=== PATIENT | male | born 1990 | race African-American/Black ===

== ENCOUNTER 2016-07-29 00:33 | Inpatient (IN) | payer OTHER ==
--- NOTE | 2016-07-29 01:03 | HP ---
CIWA Score - CIWA Score Nausea/Vomitin-Mild Nausea/No Vomiting Muscle Tremors: 4-Moderate,w/Arms Extend Anxiety: 5 Agitation: 6 Paroxysmal Sweats: 3 Orientation: 1-Uncertain about Date Tacttile Disturbances: 0-None Auditory Disturbances: 0-None Visual Disturbances: 0-None Headache: 3-Moderate CIWA-Ar Total Score: 23 Admission ROS BHS - HPI Chief Complaint: WITHDRAWAL SX'S Allergies/Adverse Reactions: Allergies Allergy/AdvReac Type Severity Reaction Status Date / Time No Known Allergies Allergy Verified 07/29/16 00:50 History of Present Illness: 25 Y.O. MALE WITH OPIOID DEPENDENCE ADMITTED FOR DETOX TXMENT. CLIENT IS PRESENTLY INTOXICATED, WITH NATHAN .307. HE IS COHERENT AND ALERT DURING INTERVIEW. PERIOD OF AGITATION NOTED. CLIENT WAS SEEN AT [facility] ON 07/22/16 FOR SUICIDAL IDEATION AND ALCOHOL INTOXICATION. CLEARED AND D/C 07/23/2016 AND REFERRED HERE FOR DETOX. D/C PAPERS PROVIDED AND REVIEWED. PRESENTLY DENIES SI/ HI. HE HAS BEEN INFORMED THAT HIS EXPECTED LOSIS 5 DAYS. CLIENT VERBALIZED UNDERSTANDING AND AGREED. Exam Limitations: Intoxication - Ebola screening Have you traveled outside of the country in the last 21 days: No Have you had contact with anyone from an Ebola affected area: No Have you been sick,other than usual withdrawal symptoms: No Do you have a fever: No - Review of Systems Constitutional: Loss of Appetite, Night Sweats EENT: reports: No Symptoms Reported Respiratory: reports: No Symptoms reported Cardiac: reports: No Symptoms Reported GI: reports: Poor Appetite, Poor Fluid Intake : reports: No Symptoms Reported Musculoskeletal: reports: Back Pain Integumentary: reports: No Symptoms Reported Neuro: reports: No Symptoms reported Endocrine: reports: No Symptoms Reported Hematology: reports: No Symptoms Reported Psychiatric: reports: Agitated, Anxious, Depressed Other Systems: Reviewed and Negative Patient History - Patient Medical History Hx Anemia: No Hx Asthma: No Hx Chronic Obstructive Pulmonary Disease (COPD): No Hx Cancer: No Hx Cardiac Disorders: No Hx Congestive Heart Failure: No Hx Hypertension: No Hx Hypercholesterolemia: No Hx Pacemaker: No HX Cerebrovascular Accident: No Hx Seizures: No Hx Dementia: No Hx Diabetes: No Hx Gastrointestinal Disorders: No (GERD) Hx Liver Disease: No Hx Genitourinary Disorders: No Hx Sexually Transmitted Disorders: No Hx Renal Disease (ESRD): No Hx Thyroid Disease: No Hx Human Immunodeficiency Virus (HIV): No Hx Hepatitis C: No Hx Depression: Yes (FEELS) Hx Suicide Attempt: Yes (3 YEARS AGO OD ON PILLS. ) Hx Bipolar Disorder: No Hx Schizophrenia: No Other Medical History: PT REPORTS H/O PSYCH MEDS DOES NOT RECALL HE DOES NOT TAKE THEM - Patient Surgical History Past Surgical History: No - PPD History Previous Implant?: Yes Documented Results: Negative w/o proof Implanted On Prior [facility] Admission?: No PPD to be Administered?: Yes - Smoking Cessation Smoking history: Current every day smoker Have you smoked in the past 12 months: Yes Aproximately how many cigarettes per day: 10 Cigars Per Day: 1 Hx Chewing Tobacco Use: No Initiated information on smoking cessation: Yes 'Breaking Loose' booklet given: 07/29/16 - Substance & Tx. History Hx Alcohol Use: Yes Hx Substance Use: No Substance Use Type: Alcohol Hx Substance Use Treatment: Yes ([facility]) - Substances Abused LIQUOR Route: Oral Frequency: Daily Amount used: 6 BEERS OF 40 OZ/ 1 QUARTLIQUOR Age of first use: 19 Date of Last Use: 07/28/16 Family Disease History - Family Disease History Family History: Unable to Obtain Family Disease History: Other: Father (ESTRANGED), Mother Admission Physical Exam [facility] - Physical General Appearance: Yes: Moderate Distress, Alcohol on Breath, Intoxicated, Thin , Irritable HEENTM: Yes: Within Normal Limits, Other (BULGING EYE BALLS) Respiratory: Yes: Chest Non-Tender, Lungs Clear, Normal Breath Sounds, No Respiratory Distress, No Accessory Muscle Use Neck: Yes: No masses,lesions,Nodules, Trachea in good position Breast: Yes: Breast Exam Deferred Cardiology: Yes: Regular Rhythm, S1, S2, Tachycardia Abdominal: Yes: Normal Bowel Sounds, Non Tender, Flat, Soft Genitourinary: Yes: Within Normal Limits Back: Yes: Normal Inspection Musculoskeletal: Yes: full range of Motion, Gait Steady 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: Alert, Motor Strength 5/5 Integumentary: Yes: Normal Color, Warm Lymphatic: Yes: Within Normal Limits - Diagnostic (1) Alcohol dependence with uncomplicated withdrawal Current Visit: Yes Status: Acute (2) GERD (gastroesophageal reflux disease) Current Visit: Yes Status: Acute (3) Nicotine dependence Current Visit: Yes Status: Acute (4) Asthma Current Visit: Yes Status: Acute Cleared for Admission [facility] - Detox or Rehab [facility] Level of Care: Medically Managed Detox Regimen/Protocol: Librium [facility] Breath Alcohol Content Breath Alcohol Content: 0.307 Vital Signs - Vital Signs Vital Signs Refused: No Temperature: 97 F Temperature Source: Oral Pulse Rate: 101 Respiratory Rate: 20 Blood Pressure: 105/73 BP Location: Left Arm Blood Pressure Position: Sitting - Height Height: 5 ft 6 in - Weight Weight: 53.524 kg Weight Measurement Method: Standing Scale Body Mass Index (BMI): 19.0 - Bowel Function Bowel Movement: No Urine Drug Screen - Test Device Lot Number: [id number] Expiration Date: 03/01/18 - Control Is Test Valid: Yes - Results Drug Screen Negative: No Urine Drug Screen Results: BZO-Benzodiazepines
[2016-07-29 01:20] VITALS: BMI 19.0
[2016-07-29] MEDS ORDERED: IBUPROFEN 400 MG TABLET (FP) PO PRN (01:24)
[2016-07-29] MEDS ORDERED: MENTHOL/PHENOL 1 EACH UD MM PRN (01:24)
[2016-07-29] MEDS ORDERED: guaiFENesin/D-METHORPHAN HB 10 ML UNIT-DOSE CUPS PO PRN (01:24)
[2016-07-29] MEDS ORDERED: MAGNESIUM CITRATE 300 ML BOTTLE PO PRN (01:24)
[2016-07-29] MEDS ORDERED: diphenhydrAMINE HCL 50 MG CAPSULE PO PRN (01:24)
[2016-07-29] MEDS ORDERED: P-EPHED 60MG/TRIPROLIDI 2.5MG TABLET PO PRN (01:24)
[2016-07-29] MEDS ORDERED: MAGNESIUM HYDROX 2400MG/30ML ORAL SUSPENSION 30 ML CUP PO PRN (01:24)
[2016-07-29] MEDS ORDERED: chlordiazePOXIDE HCL 25 MG CAPSULE PO ONE (01:24)
[2016-07-29] MEDS ORDERED: hydrOXYzine PAMOATE 50 MG CAPSULE (FP) PO PRN (01:24)
[2016-07-29] MEDS ORDERED: LOPERAMIDE HCL 2 MG CAPSULE PO PRN (01:24)
[2016-07-29] MEDS ORDERED: chlordiazePOXIDE HCL 25 MG CAPSULE PO PRN (01:24)
[2016-07-29] MEDS: NICOTINE 14 MG/24 HOURS TOPICAL PATCH TD SCH ×2 (02:25→10:11)
[2016-07-29] MEDS: chlordiazePOXIDE HCL 25 MG CAPSULE PO SCH ×4 (06:21→22:17)
--- NOTE | 2016-07-29 09:29 | EKG ---
Test Reason : Blood Pressure : / mmHG Vent. Rate : 089 BPM Atrial Rate : 089 BPM P-R Int : 128 ms QRS Dur : 080 ms QT Int : 332 ms P-R-T Axes : 079 -40 047 degrees QTc Int : 403 ms NORMAL SINUS RHYTHM RSR' OR QR PATTERN IN V1 SUGGESTS RIGHT VENTRICULAR CONDUCTION DELAY ABNORMAL ECG NO PREVIOUS ECGS AVAILABLE Confirmed by SUNG ALFREDO MD ([id number]) on 07/29/2016 9:28:58 AM Referred By: Confirmed By:SUNG ALFREDO MD
[2016-07-29] MEDS ORDERED: NICOTINE 14 MG/24 HOURS TOPICAL PATCH TD SCH (10:00)
[2016-07-29] MEDS: PRENATAL VITAMINS W/ FOLIC ACID TABLET (FP) PO SCH (10:10)
[2016-07-29] MEDS: PANTOPRAZOLE 20 MG TABLET (FP) PO SCH (10:10)
[2016-07-29 10:27] LABS: MCH 32.1 pg (25.7-33.7); MEAN CELL VOLUME 94.3 fl (80-96); MEAN PLT VOLUME 8.4 fl (7.5-11.1); PLATELET COUNT 179 K/MM3 (134-434); RDW 13.7 % (11.9-15.9); WHITE BLOOD COUNT 7.6 K/mm3 (4.0-10.0)
[2016-07-29 11:56] LABS: ALBUMIN 3.9 g/dl (3.4-5.0); ALK PHOS 82 U/L (45-117); ANION GAP 14 (8-16); BILIRUBIN,TOTAL 0.2 mg/dL (0.2-1.0); CALCIUM 8.7 mg/dL (8.5-10.1); CO2 25 mmol/L (21-32); CREATININE 1.2 mg/dL (0.7-1.3); GLUCOSE,RANDOM 102 mg/dL (74-106); SGOT/AST 13 U/L (15-37); SGPT/ALT 26 U/L (12-78); TOT PROT 7.1 g/dl (6.4-8.2)
[2016-07-29] MEDS ORDERED: INFLUENZA VACCINE 45 MCG/0.5 ML (MDV 16-17) IM ONE (12:00)
[2016-07-29 12:14] LABS: HIV 1 & 2 AB NEGATIVE; HIV 1 AGp24 NEGATIVE
--- NOTE | 2016-07-29 12:29 | PN ---
BHS Progress Note (SOAP) Subjective: Patient was admitted early this morning for ETOH Detox. Complained of tremors, anxiety, sweating, and restlessness. Objective: 07/29/16 12:28 Vital Signs Temperature 96.9 F L 07/29/16 10:51 Pulse Rate 99 H 07/29/16 10:51 Respiratory Rate 20 07/29/16 10:51 Blood Pressure 115/79 07/29/16 10:51 O2 Sat by Pulse Oximetry (%) Laboratory Results - last 24 hr 07/29/16 07/29/16 07/29/16 07:40 07:40 07:40 WBC 7.6 RBC 4.60 Hgb 14.8 Hct 43.4 MCV 94.3 MCHC 34.0 RDW 13.7 Plt Count 179 MPV 8.4 Sodium 146 H Potassium 3.9 Chloride 107 Carbon Dioxide 25 Anion Gap 14 BUN 15 Creatinine 1.2 Creat Clearance w eGFR > 60 Random Glucose 102 Calcium 8.7 Total Bilirubin 0.2 AST 13 L ALT 26 Alkaline Phosphatase 82 Total Protein 7.1 Albumin 3.9 HIV 1&2 Antibody Screen Negative HIV P24 Antigen Negative labs noted Assessment: 07/29/16 12:28 Withdrawal symptoms Plan: Continue Detox
[2016-07-29] MEDS: THIAMINE HCL 100 MG TABLET (FP) PO SCH (22:16)
[2016-07-30] MEDS: chlordiazePOXIDE HCL 25 MG CAPSULE PO SCH ×4 (05:38→22:04)
[2016-07-30] MEDS: PRENATAL VITAMINS W/ FOLIC ACID TABLET (FP) PO SCH (10:05)
[2016-07-30] MEDS: PANTOPRAZOLE 20 MG TABLET (FP) PO SCH (10:05)
[2016-07-30] MEDS: NICOTINE 14 MG/24 HOURS TOPICAL PATCH TD SCH (10:06)
[2016-07-30] MEDS: ACETAMINOPHEN 325 MG TABLET (FP) PO PRN (10:08)
--- NOTE | 2016-07-30 14:45 | PN ---
S CIWA - CIWA Score Nausea/Vomitin Muscle Tremors: 4-Moderate,w/Arms Extend Anxiety: 4-Mod. Anxious/Guarded Agitation: 3 Paroxysmal Sweats: No Perspiration Orientation: 0-Oriented Tacttile Disturbances: 1-Very Mild Itch/Numbness Auditory Disturbances: 0-None Visual Disturbances: 0-None Headache: 3-Moderate CIWA-Ar Total Score: 18 BHS Progress Note (SOAP) Subjective: Nausea, tremor, sweating, interrupted sleep, restless Objective: 07/30/16 14:41 Last Vital Signs Temp Pulse Resp BP Pulse Ox 97.0 F L 71 18 105/78 07/30/16 12:51 07/30/16 12:51 07/30/16 12:51 07/30/16 12:51 Laboratory Tests 07/29/16 07/29/16 07/29/16 07:40 07:40 07:40 WBC 7.6 RBC 4.60 Hgb 14.8 Hct 43.4 MCV 94.3 MCHC 34.0 RDW 13.7 Plt Count 179 MPV 8.4 Sodium 146 H Potassium 3.9 Chloride 107 Carbon Dioxide 25 Anion Gap 14 BUN 15 Creatinine 1.2 Creat Clearance w eGFR > 60 Random Glucose 102 Calcium 8.7 Total Bilirubin 0.2 AST 13 L ALT 26 Alkaline Phosphatase 82 Total Protein 7.1 Albumin 3.9 RPR Titer Nonreactive HIV 1&2 Antibody Screen HIV P24 Antigen 07/29/16 07:40 WBC RBC Hgb Hct MCV MCHC RDW Plt Count MPV Sodium Potassium Chloride Carbon Dioxide Anion Gap BUN Creatinine Creat Clearance w eGFR Random Glucose Calcium Total Bilirubin AST ALT Alkaline Phosphatase Total Protein Albumin RPR Titer HIV 1&2 Antibody Screen Negative HIV P24 Antigen Negative Labs noted Assessment: 07/30/16 14:44 Withdrawal symptoms Plan: Continue detox
[2016-07-30] MEDS: THIAMINE HCL 100 MG TABLET (FP) PO SCH (22:04)
[2016-07-31] MEDS: chlordiazePOXIDE 5 MG CAPSULE PO SCH ×4 (05:30→22:15)
[2016-07-31] MEDS: PANTOPRAZOLE 20 MG TABLET (FP) PO SCH (10:39)
[2016-07-31] MEDS: PRENATAL VITAMINS W/ FOLIC ACID TABLET (FP) PO SCH (10:39)
[2016-07-31] MEDS: NICOTINE 14 MG/24 HOURS TOPICAL PATCH TD SCH (10:39)
[2016-07-31] MEDS: ACETAMINOPHEN 325 MG TABLET (FP) PO PRN (10:40)
--- NOTE | 2016-07-31 11:35 | PN ---
S CIWA - CIWA Score Nausea/Vomitin-No Nausea/No Vomiting Muscle Tremors: 3 Anxiety: 4-Mod. Anxious/Guarded Agitation: 4-Moderately Restless Paroxysmal Sweats: 3 Orientation: 0-Oriented Tacttile Disturbances: 0-None Auditory Disturbances: 0-None Visual Disturbances: 0-None Headache: 0-None Present CIWA-Ar Total Score: 14 BHS Progress Note (SOAP) Subjective: SWEATING,ANXIETY,TREMORS,INTERRUPTED SLEEP,RESTLESS Objective: 07/31/16 11:33 Vital Signs - 8 hr 07/31/16 07/31/16 06:12 09:40 Temperature 97.8 F 96.2 F L Pulse Rate 71 65 Respiratory 16 16 Rate Blood Pressure 104/74 94/64 Laboratory Tests 07/29/16 07/29/16 07/29/16 07:40 07:40 07:40 WBC 7.6 RBC 4.60 Hgb 14.8 Hct 43.4 MCV 94.3 MCHC 34.0 RDW 13.7 Plt Count 179 MPV 8.4 Sodium 146 H Potassium 3.9 Chloride 107 Carbon Dioxide 25 Anion Gap 14 BUN 15 Creatinine 1.2 Creat Clearance w eGFR > 60 Random Glucose 102 Calcium 8.7 Total Bilirubin 0.2 AST 13 L ALT 26 Alkaline Phosphatase 82 Total Protein 7.1 Albumin 3.9 RPR Titer Nonreactive HIV 1&2 Antibody Screen HIV P24 Antigen 07/29/16 07:40 WBC RBC Hgb Hct MCV MCHC RDW Plt Count MPV Sodium Potassium Chloride Carbon Dioxide Anion Gap BUN Creatinine Creat Clearance w eGFR Random Glucose Calcium Total Bilirubin AST ALT Alkaline Phosphatase Total Protein Albumin RPR Titer HIV 1&2 Antibody Screen Negative HIV P24 Antigen Negative LABS NOTED Assessment: 07/31/16 11:33 WITHDRAWAL SX. Plan: CONTINUE DETOX
--- NOTE | 2016-07-31 16:08 | CONSULT ---
[facility] Psychiatric Consult - Data Date of interview: 07/31/16 Admission source: [facility] Identifying data: First admission to [facility] for this 25 y/o AA male seeking detox treatment on for alcohol dependence.Patient is single without children,homeless,unemployed and supported on Public Assistance. Substance Abuse History: - Smoking Cessation. Smoking history: Current every day smoker. Have you smoked in the past 12 months: Yes. Aproximately how many cigarettes per day: 10. Cigars Per Day: 1. Hx Chewing Tobacco Use: No. Initiated information on smoking cessation: Yes. 'Breaking Loose' booklet given : 07/29/16. - Substance & Tx. History. Hx Alcohol Use: Yes. Hx Substance Use : No. Substance Use Type: Alcohol. Hx Substance Use Treatment: Yes ([facility]). - Substances Abused. LIQUOR. Route: Oral. Frequency: Daily. Amount used: 6 BEERS OF 40 OZ/ 1 QUARTLIQUOR. Age of first use: 19. Date of Last Use: . Discussed with the patient in this interview.He confirmed this pattern of substance use. Medical History: GERD and bronchial asthma. Psychiatric History: No reported history of psychiatric hospitalizations.Patient reports OPD care at the [facility] ([facility]).Diagnosed with Bipolar Disorder.Mr Judd indicates that he is not adherent to OPD care (does not take prescribed medications and does not keep appointments).Review of pharmacy claims shows last filled scripts for depakote (250 mg/hs),trazodone (50 mg/hs) and seroquel (100 mg/hs) posted @ [facility] # [id number].Patient explains that " those medications were too strong for me." Noted history of suicide attempts via overdoses with medications.Insomnia is endorsed by the patient.He declares no interest for renewal of psychotropic medications at the exception of detox drugs/zolpidem at bedtime. Physical/Sexual Abuse/Trauma History: Patient denies. Additional Comment: Urine Drug Screen Results: BZO-Benzodiazepines.Noted. Mental Status Exam - Mental Status Exam Alert and Oriented to: Time, Place, Person Cognitive Function: Good Patient Appearance: Well Groomed Mood: Hopeful, Euthymic Affect: Appropriate, Normal Range Patient Behavior: Fatigued, Appropriate, Cooperative Speech Pattern: Clear, Appropriate Voice Loudness: Normal Thought Process: Goal Oriented Thought Disorder: Not Present Hallucinations: Denies Suicidal Ideation: Denies Homicidal Ideation: Denies Insight/Judgement: Poor Sleep: Poorly, Difficulty falling asleep Appetite: Good Muscle strength/Tone: Normal Gait/Station: Normal Psychiatric Findings - Problem List ([place] 1, 2,3) (1) Alcohol dependence with uncomplicated withdrawal Current Visit: Yes Status: Acute (2) Asthma Current Visit: Yes Status: Acute (3) Nicotine dependence Current Visit: Yes Status: Acute (4) Bipolar disorder Current Visit: No Status: Acute Comment: No symptom elicited.Historical diagnosis. (5) Substance induced mood disorder Current Visit: Yes Status: Acute (6) GERD (gastroesophageal reflux disease) Current Visit: Yes Status: Acute (7) Insomnia Current Visit: Yes Status: Acute - Initial Treatment Plan Initial Treatment Plan: Psychoeducation.Detoxification.Zolpidem 10 mg po hs prn.Patient is made aware of the risk of parasomnias.He agrees with this plan.Not receptive to encouragement for mood stabilizers.Patient is reminded of the dangers of refusal of treatment and the benefits of psychopharmacotherapy as a tool for stabilization.He declines to follow my recommendations.Observation.
[2016-07-31] MEDS: MAG HYDROX/AL HYDROX/SIMETH 30 ML UNIT-DOSE CUP PO PRN (17:30)
[2016-07-31] MEDS: NICOTINE POLACRILEX 2 MG GUM BC PRN ×2 (17:33→22:15)
[2016-07-31] MEDS ORDERED: ZOLPIDEM TARTRATE 5 MG TABLET PO PRN (22:00)
[2016-07-31] MEDS: THIAMINE HCL 100 MG TABLET (FP) PO SCH (22:15)
[2016-08-01] MEDS: chlordiazePOXIDE HCL 10 MG CAPSULE PO SCH ×2 (05:50→10:17)
[2016-08-01 06:23] VITALS: BP 112/72; PULSE 66; TEMP 96.7
[2016-08-01] MEDS: NICOTINE 14 MG/24 HOURS TOPICAL PATCH TD SCH (10:17)
[2016-08-01] MEDS: PRENATAL VITAMINS W/ FOLIC ACID TABLET (FP) PO SCH (10:17)
[2016-08-01] MEDS: MAG HYDROX/AL HYDROX/SIMETH 30 ML UNIT-DOSE CUP PO PRN (10:18)
--- NOTE | 2016-08-01 10:45 | DS ---
[facility] Detox Discharge Summary Admission Date: 07/29/16 Discharge Date: 08/01/16 - History Present History: Alcohol Dependence Additional Comments: DETOX COMPLETED. Pertinent Past History: GERD ASTHMA INSOMNIA BIPOLAR DISORDER - Physical Exam Results Vital Signs: Vital Signs Temperature 96.7 F L 08/01/16 06:22 Pulse Rate 66 08/01/16 06:22 Respiratory Rate 16 08/01/16 06:22 Blood Pressure 112/72 08/01/16 06:22 O2 Sat by Pulse Oximetry (%) Pertinent Admission Physical Exam Findings: WITHDRAWAL SX Laboratory Last Values WBC 7.6 K/mm3 (4.0-10.0) 07/29/16 07:40 RBC 4.60 M/mm3 (4.00-5.60) 07/29/16 07:40 Hgb 14.8 GM/dL (11.7-16.9) 07/29/16 07:40 Hct 43.4 % (35.4-49) 07/29/16 07:40 MCV 94.3 fl (80-96) 07/29/16 07:40 MCHC 34.0 g/dl (32.0-35.9) 07/29/16 07:40 RDW 13.7 % (11.9-15.9) 07/29/16 07:40 Plt Count 179 K/MM3 (134-434) 07/29/16 07:40 MPV 8.4 fl (7.5-11.1) 07/29/16 07:40 Sodium 146 mmol/L (136-145) H 07/29/16 07:40 Potassium 3.9 mmol/L (3.5-5.1) 07/29/16 07:40 Chloride 107 mmol/L (98-107) 07/29/16 07:40 Carbon Dioxide 25 mmol/L (21-32) 07/29/16 07:40 Anion Gap 14 (8-16) 07/29/16 07:40 BUN 15 mg/dL (7-18) 07/29/16 07:40 Creatinine 1.2 mg/dL (0.7-1.3) 07/29/16 07:40 Creat Clearance w eGFR > 60 (>60) 07/29/16 07:40 Random Glucose 102 mg/dL (74-106) 07/29/16 07:40 Calcium 8.7 mg/dL (8.5-10.1) 07/29/16 07:40 Total Bilirubin 0.2 mg/dL (0.2-1.0) 07/29/16 07:40 AST 13 U/L (15-37) L 07/29/16 07:40 ALT 26 U/L (12-78) 07/29/16 07:40 Alkaline Phosphatase 82 U/L (45-117) 07/29/16 07:40 Total Protein 7.1 g/dl (6.4-8.2) 07/29/16 07:40 Albumin 3.9 g/dl (3.4-5.0) 07/29/16 07:40 RPR Titer Nonreactive (NONREACTIVE) 07/29/16 07:40 HIV 1&2 Antibody Screen Negative 07/29/16 07:40 HIV P24 Antigen Negative 07/29/16 07:40 - Treatment Hospital Course: Detox Protocol Followed, Detoxed Safely, Responded well, Discharged Condition Good - Diagnosis (1) Alcohol dependence with uncomplicated withdrawal Current Visit: Yes Status: Acute (2) Asthma Current Visit: Yes Status: Chronic Qualifiers: Asthma severity: mild intermittent Asthma complication type: uncomplicated Qualified Code(s): J45.20 - Mild intermittent asthma, uncomplicated (3) GERD (gastroesophageal reflux disease) Current Visit: Yes Status: Chronic Qualifiers: Esophagitis presence: without esophagitis Qualified Code(s): K21.9 - Gastro-esophageal reflux disease without esophagitis (4) Nicotine dependence Current Visit: Yes Status: Chronic Qualifiers: Nicotine product type: cigarettes Substance use status: uncomplicated Qualified Code(s): F17.210 - Nicotine dependence, cigarettes, uncomplicated (5) Insomnia Current Visit: Yes Status: Chronic (6) Substance induced mood disorder Current Visit: Yes Status: Acute (7) Bipolar disorder Current Visit: Yes Status: Acute - AMA Did Patient Leave Against Medical Advice: No
== END 2016-08-01 10:45 | disposition home or self-care (01) | DRG 775 ==
LOC: YASAS 00:33 → Y3N 01:19
PROVIDERS: ADMIT Internal Medicine; ATTEND Internal Medicine
PROC: HZ2ZZZZ Detoxification Services for Substance Abuse Treatment (ICD-10-PCS; principal; 2016-08-01)
DX: F10.230 Alcohol dependence with withdrawal, uncomplicated (principal); F17.210 Nicotine dependence, cigarettes, uncomplicated; F19.24 Other psychoactive substance dependence with psychoactive substance-induced mood disorder; F31.9 Bipolar disorder, unspecified; G47.00 Insomnia, unspecified; J45.20 Mild intermittent asthma, uncomplicated; K21.9 Gastro-esophageal reflux disease without esophagitis
CPT/HCPCS: 36415; 80053; 85027; 86593; 87389; 93005; 93010

== ENCOUNTER 2016-08-05 08:06 | Emergency (ER) | payer OTHER ==
[2016-08-05 08:12] VITALS: TEMP 98.1; BMI 17.7
--- NOTE | 2016-08-05 08:31 | PDOC ---
History of Present Illness - General History Source: Patient Exam Limitations: No Limitations - History of Present Illness Initial Comments: 08/05/16 09:00 The patient is a 25 year old male, with a significant past medical history of ETOH abuse and suicidal ideations, who presents to the emergency department with alcohol intoxication. He states that he was recently at [address] [place] [address], where he was detoxing from alcohol. He was discharged and began to drink again. He went to [facility] last night for alcohol intoxication and was discharge early this morning. He then drank 2 beers before stopping an ambulance and coming to this ED for evaluation. He states that he wants to go to detox. The patient was informed that [address] [place] [address] will be unable to accept him back due to the quick turnaround. On presentation the patient does smell of alcohol but is able to ambulate, converse and hold a conversation without any complications. The patient denies chest pain, shortness of breath, headache and dizziness. Denies fever, chills, nausea, vomit, diarrhea and constipation. Allergies: Lactose Intolerant Past surgical history: None reported Social history: ETOH abuse. Cigarette use (20 daily). Percocet use <Yves Valenzuela - Last Filed: 08/05/16 09:24> <Andres Russell - Last Filed: 08/05/16 11:59> - General Chief Complaint: Alcohol intoxication Stated Complaint: INTOX Time Seen by Provider: 08/05/16 08:30 Past History <Yves Valenzuela - Last Filed: 08/05/16 09:24> - Past Medical History Anemia: No Asthma: No Cancer: No Cardiac Disorders: No CVA: No COPD: No CHF: No Dementia: No Diabetes: No GI Disorders: No (GERD) Disorders: No HTN: No Hypercholesterolemia: No Liver Disease: No Suicide Attempt (Hx): Yes (3 YEARS AGO OD ON PILLS. ) Seizures: Yes (???) Thyroid Disease: No - Psycho/Social/Smoking Cessation Hx Suicidal Ideation: No Smoking History: Current every day smoker Have you smoked in the past 12 months: Yes Number of Cigarettes Smoked Daily: 20 Cigars Per Day: 1 Information on smoking cessation initiated: Yes 'Breaking Loose' booklet given: 08/05/16 Hx Alcohol Use: Yes (daily) Drug/Substance Use Hx: Yes (percocets) Substance Use Type: Alcohol Hx Substance Use Treatment: Yes ([facility]) <Andres Russell - Last Filed: 08/05/16 11:59> - Past Medical History Allergies/Adverse Reactions: Allergies Allergy/AdvReac Type Severity Reaction Status Date / Time lactose Allergy Verified 08/05/16 08:12 LACTOSE INTOLERANCE Allergy Uncoded 08/05/16 08:12 Home Medications: Ambulatory Orders NK [No Known Home Medication] 08/01/16 Review of Systems - Review of Systems Able to Perform ROS?: Yes Comments:: 08/05/16 09:00 CONSTITUTIONAL: No fever, no chills, no fatigue EYES: No visual changes ENT: No ear pain, no sore throat CARDIOVASCULAR: No chest pain, no palpitations RESPIRATORY: No cough, no SOB GI: No abdominal pain, no nausea, no vomiting, no constipation, no diarrhea GENITOURINARY: No dysuria, no frequency, no hematuria MUSKULOSKELETAL: No backpain, no joint pain, no myalgias SKIN: No rash NEURO: No headache <Yves Valenzuela - Last Filed: 08/05/16 09:24> *Physical Exam - Vital Signs Last Vital Signs Temp Pulse Resp BP Pulse Ox 98.1 F 83 18 111/72 100 08/05/16 08:09 08/05/16 08:09 08/05/16 08:09 08/05/16 08:09 08/05/16 08:09 - Physical Exam Comments: 08/05/16 09:00 CONSTITUTIONAL: Well-appearing; well-nourished; in no apparent distress. Alert, awake and fully oriented. Alcohol on breath. HEAD: Normocephalic; atraumatic EYES: PERRL; EOM intact. Bilateral proptosis. ENMT: External appears normal; normal oropharynx NECK: Supple; non-tender; no cervical lymphadenopathy CARD: Normal S1, S2; no murmurs, rubs, or gallops RESP: Normal chest excursion with respiration; breath sounds clear and equal bilaterally; no wheezes, rhonchi, or rales ABD: Soft, non-distended; non-tender; no palpable organomegaly, no palpable hernias EXT: Normal ROM in all four extremities; non-tender to palpation; distal pulses intact SKIN: Warm, dry, no rash NEURO: No focal neurological deficiencies. <Yves Valenzuela - Last Filed: 08/05/16 09:24> - Vital Signs Last Vital Signs Temp Pulse Resp BP Pulse Ox 98.1 F 83 18 111/72 100 08/05/16 08:09 08/05/16 08:09 08/05/16 08:09 08/05/16 08:09 08/05/16 08:09 <Andres Russell - Last Filed: 08/05/16 11:59> Medical Decision Making - Medical Decision Making 08/05/16 11:58 Patient is a 25-year-old male with history of alcohol abuse and depression who presents with signs and symptoms of acute alcohol intoxication. Patient reports drinking several beers shortly prior to arrival in the ER and shortly after discharge from [facility] where he was treated for acute alcohol intoxication as well. In the ER, patient is awake and alert, Ox3, ambulates without difficulty, gait is stable. Patient was able tolerate a meal and was discharged when his grandfather arrived in the ER. <Andres Russell - Last Filed: 08/05/16 11:59> *DC/Admit/Observation/Transfer - Attestations Scribe Attestion: 08/05/16 09:01 Documentation prepared by Yves Valenzuela, acting as medical affairs director for Andres Russell MD <Yves Valenzuela - Last Filed: 08/05/16 09:24> <Andres Russell - Last Filed: 08/05/16 11:59> Diagnosis at time of Disposition: Alcohol intoxication Qualifiers: Complication of substance-induced condition: uncomplicated Qualified Code(s): F10.120 - Alcohol abuse with intoxication, uncomplicated - Discharge Dispostion Disposition: HOME - Referrals Referrals: Kasi Carreon MD [Primary Care Provider] - - Patient Instructions Printed Discharge Instructions: DI for Alcohol Abuse
[2016-08-05] MEDS ORDERED: chlordiazePOXIDE HCL 25 MG CAPSULE PO ONE (09:12)
[2016-08-05] MEDS ORDERED: chlordiazePOXIDE HCL 25 MG CAPSULE ONE (09:13)
[2016-08-05 11:06] VITALS: BP 112/63; PULSE 105
== END 2016-08-05 11:03 | disposition home or self-care (01) ==
LOC: JER 08:06
DX: F10.120 Alcohol abuse with intoxication, uncomplicated (principal); F17.210 Nicotine dependence, cigarettes, uncomplicated
CPT/HCPCS: 99283-25

== ENCOUNTER 2016-09-23 20:50 | Inpatient (IN) | payer OTHER ==
--- NOTE | 2016-09-23 21:03 | HP ---
CIWA Score - CIWA Score Nausea/Vomitin Muscle Tremors: 6 Anxiety: 5 Agitation: 6 Paroxysmal Sweats: 1-Minimal Palms Moist Orientation: 0-Oriented Tacttile Disturbances: 0-None Auditory Disturbances: 0-None Visual Disturbances: 0-None Headache: 3-Moderate CIWA-Ar Total Score: 24 Admission ROS BHS - HPI Chief Complaint: C/O WITHDRAWAL SX'S. SEEKING DETOX TXMENT Allergies/Adverse Reactions: Allergies Allergy/AdvReac Type Severity Reaction Status Date / Time lactose Allergy Verified 09/23/16 20:57 LACTOSE INTOLERANCE Allergy Uncoded 09/23/16 20:57 History of Present Illness: 25 Y.O. MALE WITH ALCOHOLISM KNOWN TO [facility] ADMITTED FOR DETOX TXMENT. Exam Limitations: No Limitations - Ebola screening Have you traveled outside of the country in the last 21 days: No Have you had contact with anyone from an Ebola affected area: No Have you been sick,other than usual withdrawal symptoms: No Do you have a fever: No - Review of Systems Constitutional: Loss of Appetite, Malaise, Night Sweats, Changes in sleep, Unintentional Wgt. Loss EENT: reports: No Symptoms Reported Respiratory: reports: No Symptoms reported Cardiac: reports: No Symptoms Reported GI: reports: Nausea, Poor Appetite, Abdominal cramping : reports: No Symptoms Reported Musculoskeletal: reports: Joint Pain Neuro: reports: No Symptoms reported Endocrine: reports: No Symptoms Reported Hematology: reports: No Symptoms Reported Psychiatric: reports: Agitated, Depressed Other Systems: Reviewed and Negative Patient History - Patient Medical History Hx Anemia: No Hx Asthma: No Hx Chronic Obstructive Pulmonary Disease (COPD): No Hx Cancer: No Hx Cardiac Disorders: No Hx Congestive Heart Failure: No Hx Hypertension: No Hx Hypercholesterolemia: No Hx Pacemaker: No HX Cerebrovascular Accident: No Hx Seizures: No Hx Dementia: No Hx Diabetes: No Hx Gastrointestinal Disorders: No (GERD) Hx Liver Disease: No Hx Genitourinary Disorders: No Hx Sexually Transmitted Disorders: No Hx Renal Disease (ESRD): No Hx Thyroid Disease: No Hx Human Immunodeficiency Virus (HIV): No Hx Hepatitis C: No Hx Depression: Yes Hx Suicide Attempt: Yes (3 YEARS AGO OD ON PILLS. PRESENTYL DENIES) Hx Bipolar Disorder: No Hx Schizophrenia: No - Patient Surgical History Past Surgical History: No - PPD History Previous Implant?: Yes Documented Results: Negative w/proof Implanted On Prior [facility] Admission?: Yes Date: 07/31/16 Results: 0MM PPD to be Administered?: No - Smoking Cessation Smoking history: Current every day smoker Have you smoked in the past 12 months: Yes Aproximately how many cigarettes per day: 20 Cigars Per Day: 1 Hx Chewing Tobacco Use: No Initiated information on smoking cessation: Yes 'Breaking Loose' booklet given: 09/23/16 - Substance & Tx. History Hx Alcohol Use: Yes Hx Substance Use: Yes Substance Use Type: Alcohol Hx Substance Use Treatment: Yes ([facility]) - Substances Abused BEER/LIQUOR Route: Oral Frequency: Daily Amount used: 8-18OZ/40OZ Age of first use: 16 Date of Last Use: 09/23/16 Family Disease History - Family Disease History Family Disease History: Other: Father (ESTRANGED), Mother Admission Physical Exam [facility] - Physical General Appearance: Yes: Appropriately Dressed, Alcohol on Breath, Intoxicated, Thin, Tremorous, Irritable HEENTM: Yes: EOMI, Normocephalic, NITISH, Pharynx Normal Respiratory: Yes: Chest Non-Tender, Lungs Clear, Normal Breath Sounds, No Respiratory Distress, No Accessory Muscle Use Neck: Yes: No masses,lesions,Nodules, Supple, Trachea in good position Breast: Yes: Breast Exam Deferred Cardiology: Yes: Regular Rhythm, S1, S2, Tachycardia Abdominal: Yes: Normal Bowel Sounds, Non Tender, Flat, Soft Genitourinary: Yes: Within Normal Limits Back: Yes: Normal Inspection Musculoskeletal: Yes: full range of Motion, Gait Steady Extremities: Yes: Normal Range of Motion, Non-Tender, Tremors 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: Alert, Motor Strength 5/5 Integumentary: Yes: Normal Color, Warm Lymphatic: Yes: Within Normal Limits - Diagnostic (1) Alcohol dependence with uncomplicated withdrawal Current Visit: Yes Status: Chronic (2) GERD (gastroesophageal reflux disease) Current Visit: Yes Status: Chronic Qualifiers: Esophagitis presence: without esophagitis Qualified Code(s): K21.9 - Gastro-esophageal reflux disease without esophagitis (3) Nicotine dependence Current Visit: Yes Status: Chronic Qualifiers: Nicotine product type: cigarettes Substance use status: uncomplicated Qualified Code(s): F17.210 - Nicotine dependence, cigarettes, uncomplicated Cleared for Admission [facility] - Detox or Rehab [facility] Level of Care: Medically Managed Detox Regimen/Protocol: Librium BHS Breath Alcohol Content Breath Alcohol Content: 0.194 Vital Signs - Vital Signs Vital Signs Refused: No Temperature: 97 F Temperature Source: Oral Pulse Rate: 119 Respiratory Rate: 18 Blood Pressure: 123/81 BP Location: Left Arm - Height Height: 5 ft 6 in - Weight Weight: 54.431 kg Weight Measurement Method: Standing Scale Body Mass Index (BMI): 19.3 Urine Drug Screen - Test Device Lot Number: [id number] Expiration Date: 05/31/18 - Control Is Test Valid: Yes - Results Drug Screen Negative: Yes
[2016-09-23 21:08] VITALS: BMI 19.3
[2016-09-23] MEDS ORDERED: guaiFENesin/D-METHORPHAN HB 10 ML UNIT-DOSE CUPS PO PRN (21:08)
[2016-09-23] MEDS ORDERED: MAGNESIUM HYDROX 2400MG/30ML ORAL SUSPENSION 30 ML CUP PO PRN (21:08)
[2016-09-23] MEDS ORDERED: IBUPROFEN 400 MG TABLET (FP) PO PRN (21:08)
[2016-09-23] MEDS ORDERED: MAGNESIUM CITRATE 300 ML BOTTLE PO PRN (21:08)
[2016-09-23] MEDS ORDERED: diphenhydrAMINE HCL 50 MG CAPSULE PO PRN (21:08)
[2016-09-23] MEDS ORDERED: hydrOXYzine PAMOATE 50 MG CAPSULE (FP) PO PRN (21:08)
[2016-09-23] MEDS ORDERED: P-EPHED 60MG/TRIPROLIDI 2.5MG TABLET PO PRN (21:08)
[2016-09-23] MEDS ORDERED: MENTHOL/PHENOL 1 EACH UD MM PRN (21:08)
[2016-09-23] MEDS ORDERED: chlordiazePOXIDE HCL 25 MG CAPSULE PO PRN (21:08)
[2016-09-23] MEDS ORDERED: NICOTINE POLACRILEX 2 MG GUM BC PRN (21:08)
[2016-09-23] MEDS: PANTOPRAZOLE 20 MG TABLET (FP) PO SCH (23:16)
[2016-09-23] MEDS: chlordiazePOXIDE HCL 25 MG CAPSULE PO SCH (23:16)
[2016-09-23] MEDS: NICOTINE 21 MG/24 HOURS TOPICAL PATCH TD SCH (23:18)
[2016-09-23] MEDS: THIAMINE HCL 100 MG TABLET (FP) PO SCH (23:19)
[2016-09-24] MEDS: chlordiazePOXIDE HCL 25 MG CAPSULE PO SCH ×4 (05:55→22:09)
[2016-09-24] MEDS: PRENATAL VITAMINS W/ FOLIC ACID TABLET (FP) PO SCH (10:25)
[2016-09-24] MEDS: NICOTINE 21 MG/24 HOURS TOPICAL PATCH TD SCH (10:25)
[2016-09-24] MEDS: PANTOPRAZOLE 20 MG TABLET (FP) PO SCH (10:25)
[2016-09-24 10:48] LABS: MCH 31.8 pg (25.7-33.7); MCHC 33.9 g/dl (32.0-35.9); MEAN CELL VOLUME 93.9 fl (80-96); MEAN PLT VOLUME 8.4 fl (7.5-11.1); PLATELET COUNT 167 K/MM3 (134-434); WHITE BLOOD COUNT 8.9 K/mm3 (4.0-10.0)
[2016-09-24 11:14] LABS: ALBUMIN 3.9 g/dl (3.4-5.0); ALK PHOS 64 U/L (45-117); ANION GAP 11 (8-16); BILIRUBIN,TOTAL 0.4 mg/dL (0.2-1.0); CALCIUM 8.8 mg/dL (8.5-10.1); CO2 26 mmol/L (21-32); CREATININE 1.1 mg/dL (0.7-1.3); GLUCOSE,RANDOM 65 mg/dL (74-106); SGOT/AST 35 U/L (15-37); SGPT/ALT 42 U/L (12-78); TOT PROT 6.8 g/dl (6.4-8.2)
--- NOTE | 2016-09-24 12:16 | PN ---
S CIWA - CIWA Score Nausea/Vomitin-No Nausea/No Vomiting Muscle Tremors: 4-Moderate,w/Arms Extend Anxiety: 4-Mod. Anxious/Guarded Agitation: 3 Paroxysmal Sweats: 3 Orientation: 0-Oriented Tacttile Disturbances: 0-None Auditory Disturbances: 0-None Visual Disturbances: 0-None Headache: 0-None Present CIWA-Ar Total Score: 14 BHS Progress Note (SOAP) Subjective: Anxiety,tremors,sweating,interrupted sleep,restless Objective: 09/24/16 12:16 Vital Signs - 8 hr 09/24/16 09/24/16 06:31 09:40 Temperature 95.8 F L 99.0 F Pulse Rate 54 L 99 H Respiratory 16 16 Rate Blood Pressure 95/59 123/78 Laboratory Tests 09/24/16 09/24/16 09/24/16 07:30 07:30 07:30 WBC 8.9 RBC 4.42 Hgb 14.1 Hct 41.5 MCV 93.9 MCHC 33.9 RDW 13.0 Plt Count 167 MPV 8.4 Sodium 143 Potassium 3.7 Chloride 106 Carbon Dioxide 26 Anion Gap 11 BUN 14 Creatinine 1.1 Creat Clearance w eGFR > 60 Random Glucose 65 L D Calcium 8.8 Total Bilirubin 0.4 D AST 35 D ALT 42 D Alkaline Phosphatase 64 D Total Protein 6.8 Albumin 3.9 RPR Titer Nonreactive labs noted Assessment: 09/24/16 12:16 Withdrawal sx Plan: Continue detox
[2016-09-24 14:12] LABS: URINE APPEARANCE CLEAR; URINE BILIRUBIN NEGATIVE (NEGATIVE); URINE BLOOD NEGATIVE (NEGATIVE); URINE COLOR YELLOW; URINE GLUCOSE (UA) NEGATIVE (NEGATIVE); URINE KETONE NEGATIVE (NEGATIVE); URINE LEUK ESTERASE NEGATIVE (NEGATIVE); URINE NITRITE NEGATIVE (NEGATIVE); URINE PROTEIN NEGATIVE (NEGATIVE); URINE UROBILINOGEN NEGATIVE E.U./dl (0.2-1.0)
[2016-09-24] MEDS: THIAMINE HCL 100 MG TABLET (FP) PO SCH (22:09)
--- NOTE | 2016-09-24 22:30 | EKG ---
Test Reason : Blood Pressure : / mmHG Vent. Rate : 102 BPM Atrial Rate : 102 BPM P-R Int : 122 ms QRS Dur : 080 ms QT Int : 338 ms P-R-T Axes : 072 -37 032 degrees QTc Int : 440 ms SINUS TACHYCARDIA POSSIBLE LEFT ATRIAL ENLARGEMENT LEFT AXIS DEVIATION ABNORMAL ECG WHEN COMPARED WITH ECG OF 29-JUL-2016 01:55, NO SIGNIFICANT CHANGE WAS FOUND Confirmed by MARICHUY HUNT MD ([id number]) on 09/24/2016 10:30:12 PM Referred By: Confirmed By:MARICHUY HUNT MD
[2016-09-25] MEDS: chlordiazePOXIDE HCL 25 MG CAPSULE PO SCH ×3 (05:51→17:19)
[2016-09-25] MEDS: PRENATAL VITAMINS W/ FOLIC ACID TABLET (FP) PO SCH (10:22)
[2016-09-25] MEDS: NICOTINE 21 MG/24 HOURS TOPICAL PATCH TD SCH (10:22)
[2016-09-25] MEDS: PANTOPRAZOLE 20 MG TABLET (FP) PO SCH (10:22)
--- NOTE | 2016-09-25 12:05 | CONSULT ---
[facility] Psychiatric Consult - Data Date of interview: 09/25/16 Admission source: [facility] Identifying data: Readmission to [facility] for this 25 y/o AA male seeking detox treatment on for alcohol dependence.Patient is single without children,homeless,unemployed and supported on Public Assistance. Substance Abuse History: - Smoking Cessation. Smoking history: Current every day smoker. Have you smoked in the past 12 months: Yes. Aproximately how many cigarettes per day: 20. Cigars Per Day: 1. Hx Chewing Tobacco Use: No. Initiated information on smoking cessation: Yes. 'Breaking Loose' booklet given : 09/23/16. - Substance & Tx. History. Hx Alcohol Use: Yes. Hx Substance Use : Yes. Substance Use Type: Alcohol. Hx Substance Use Treatment: Yes ([facility] - Substances Abused. BEER/LIQUOR. Route: Oral. Frequency: Daily. Amount used: 8-18OZ/40OZ. Age of first use: 16. Date of Last Use: 09/23/16. Confirmed by patient. Medical History: GERD and bronchial asthma. Psychiatric History: Patient reports a history of psychiatric hospitalizations ( [facility]).OPD care is rendered at the [facility] ([facility]).Diagnosed with Bipolar Disorder.Mr Judd indicates that he is not adherent to OPD care (does not take prescribed medications and does not keep appointments)." I have not been to my program for two months or so." Review of pharmacy claims shows last filled scripts for depakote (250 mg/hs ),trazodone (50 mg/hs) and seroquel (100 mg/hs) posted 03/03/16 @ [facility] # [id number].Patient declines to resume taking these medications in this hospital course.He admits to a history of suicide attempts via overdoses with medications. Physical/Sexual Abuse/Trauma History: Patient denies. Additional Comment: Drug Screen Negative: Yes.Noted. Mental Status Exam - Mental Status Exam Alert and Oriented to: Time, Place Cognitive Function: Good Patient Appearance: Well Groomed Mood: Hopeful, Euthymic Affect: Appropriate, Normal Range Patient Behavior: Fatigued, Appropriate, Cooperative Speech Pattern: Clear Voice Loudness: Normal Thought Process: Goal Oriented Thought Disorder: Not Present Hallucinations: Denies Suicidal Ideation: Denies Homicidal Ideation: Denies Insight/Judgement: Poor Sleep: Poorly, Difficulty falling asleep Appetite: Good Muscle strength/Tone: Normal Gait/Station: Normal Psychiatric Findings - Problem List ([place] 1, 2,3) (1) Alcohol dependence with uncomplicated withdrawal Current Visit: Yes Status: Acute (2) Nicotine dependence Current Visit: Yes Status: Acute Qualifiers: Nicotine product type: cigarettes Substance use status: uncomplicated Qualified Code(s): F17.210 - Nicotine dependence, cigarettes, uncomplicated (3) Substance induced mood disorder Current Visit: Yes Status: Acute (4) GERD (gastroesophageal reflux disease) Current Visit: Yes Status: Chronic Qualifiers: Esophagitis presence: without esophagitis Qualified Code(s): K21.9 - Gastro-esophageal reflux disease without esophagitis (5) Asthma Current Visit: Yes Status: Chronic Qualifiers: Asthma severity: mild intermittent Asthma complication type: uncomplicated Qualified Code(s): J45.20 - Mild intermittent asthma, uncomplicated (6) Insomnia Current Visit: Yes Status: Chronic - Initial Treatment Plan Initial Treatment Plan: Psychoeducation attempted : patient not receptive.Firmly committed to his decision to abstain from psychotropic medications.Made aware of potential consequences of his conduct.Detoxification in progress.Observation.Mr Judd consented ONLY to zolpidem 10 mg po hs prn.Made aware of risk of parasomnias and informed of time-limited utilization of ambien (no script at discharge).Observation.
--- NOTE | 2016-09-25 12:46 | PN ---
[facility] CIWA - CIWA Score Nausea/Vomitin-No Nausea/No Vomiting Muscle Tremors: 3 Anxiety: 4-Mod. Anxious/Guarded Agitation: 3 Paroxysmal Sweats: 3 Orientation: 0-Oriented Tacttile Disturbances: 0-None Auditory Disturbances: 0-None Visual Disturbances: 0-None Headache: 0-None Present CIWA-Ar Total Score: 13 BHS Progress Note (SOAP) Subjective: Anxiety,tremors,sweating,interrupted sleep,restless Objective: 09/25/16 12:45 Vital Signs - 8 hr 09/25/16 09/25/16 06:20 10:34 Temperature 97.4 F L 98.4 F Pulse Rate 71 83 Respiratory 16 20 Rate Blood Pressure 103/73 106/67 Laboratory Tests 09/24/16 09/24/16 09/24/16 07:30 07:30 07:30 WBC 8.9 RBC 4.42 Hgb 14.1 Hct 41.5 MCV 93.9 MCHC 33.9 RDW 13.0 Plt Count 167 MPV 8.4 Sodium 143 Potassium 3.7 Chloride 106 Carbon Dioxide 26 Anion Gap 11 BUN 14 Creatinine 1.1 Creat Clearance w eGFR > 60 Random Glucose 65 L D Calcium 8.8 Total Bilirubin 0.4 D AST 35 D ALT 42 D Alkaline Phosphatase 64 D Total Protein 6.8 Albumin 3.9 Urine Color Urine Appearance Urine pH Ur Specific [place] Urine Protein Urine Glucose (UA) Urine Ketones Urine Blood Urine Nitrite Urine Bilirubin Urine Urobilinogen Ur Leukocyte Esterase RPR Titer Nonreactive 09/24/16 10:37 WBC RBC Hgb Hct MCV MCHC RDW Plt Count MPV Sodium Potassium Chloride Carbon Dioxide Anion Gap BUN Creatinine Creat Clearance w eGFR Random Glucose Calcium Total Bilirubin AST ALT Alkaline Phosphatase Total Protein Albumin Urine Color Yellow Urine Appearance Clear Urine pH 5.0 Ur Specific [place] 1.025 Urine Protein Negative Urine Glucose (UA) Negative Urine Ketones Negative Urine Blood Negative Urine Nitrite Negative Urine Bilirubin Negative Urine Urobilinogen Negative Ur Leukocyte Esterase Negative RPR Titer labs noted Assessment: 09/25/16 12:45 Withdrawal sx. Plan: Continue detox
[2016-09-25] MEDS: ZOLPIDEM TARTRATE 10 MG TABLET (PARK CARE ONLY) PO PRN (22:26)
[2016-09-25] MEDS: THIAMINE HCL 100 MG TABLET (FP) PO SCH (22:26)
[2016-09-25] MEDS: chlordiazePOXIDE 5 MG CAPSULE PO SCH (22:26)
[2016-09-26] MEDS: chlordiazePOXIDE 5 MG CAPSULE PO SCH ×3 (05:13→17:18)
[2016-09-26] MEDS: MAG HYDROX/AL HYDROX/SIMETH 30 ML UNIT-DOSE CUP PO PRN (05:15)
[2016-09-26] MEDS: ACETAMINOPHEN 325 MG TABLET (FP) PO PRN (08:42)
[2016-09-26] MEDS ORDERED: PANTOPRAZOLE 40 MG TABLET (FP) PO SCH (10:17)
--- NOTE | 2016-09-26 10:19 | PN ---
S Progress Note (SOAP) Subjective: C/O STOMACH DISCOMFORT AND CURRENT MED NOT WORKING--HX OF GERD AND PREVACID IN THE PAST, TREMORS,FATIGUE AND INTERMITTENT SLEEP. Objective: 09/26/16 10:16 Vital Signs Temperature 97.8 F 09/26/16 06:09 Pulse Rate 81 09/26/16 06:09 Respiratory Rate 18 09/26/16 06:09 Blood Pressure 102/65 09/26/16 06:09 O2 Sat by Pulse Oximetry (%) Laboratory Last Values WBC 8.9 K/mm3 (4.0-10.0) 09/24/16 07:30 RBC 4.42 M/mm3 (4.00-5.60) 09/24/16 07:30 Hgb 14.1 GM/dL (11.7-16.9) 09/24/16 07:30 Hct 41.5 % (35.4-49) 09/24/16 07:30 MCV 93.9 fl (80-96) 09/24/16 07:30 MCHC 33.9 g/dl (32.0-35.9) 09/24/16 07:30 RDW 13.0 % (11.9-15.9) 09/24/16 07:30 Plt Count 167 K/MM3 (134-434) 09/24/16 07:30 MPV 8.4 fl (7.5-11.1) 09/24/16 07:30 Sodium 143 mmol/L (136-145) 09/24/16 07:30 Potassium 3.7 mmol/L (3.5-5.1) 09/24/16 07:30 Chloride 106 mmol/L (98-107) 09/24/16 07:30 Carbon Dioxide 26 mmol/L (21-32) 09/24/16 07:30 Anion Gap 11 (8-16) 09/24/16 07:30 BUN 14 mg/dL (7-18) 09/24/16 07:30 Creatinine 1.1 mg/dL (0.7-1.3) 09/24/16 07:30 Creat Clearance w eGFR > 60 (>60) 09/24/16 07:30 Random Glucose 65 mg/dL (74-106) L D 09/24/16 07:30 Calcium 8.8 mg/dL (8.5-10.1) 09/24/16 07:30 Total Bilirubin 0.4 mg/dL (0.2-1.0) D 09/24/16 07:30 AST 35 U/L (15-37) D 09/24/16 07:30 ALT 42 U/L (12-78) D 09/24/16 07:30 Alkaline Phosphatase 64 U/L (45-117) D 09/24/16 07:30 Total Protein 6.8 g/dl (6.4-8.2) 09/24/16 07:30 Albumin 3.9 g/dl (3.4-5.0) 09/24/16 07:30 Urine Color Yellow 09/24/16 10:37 Urine Appearance Clear 09/24/16 10:37 Urine pH 5.0 (5.0-8.0) 09/24/16 10:37 Ur Specific [place] 1.025 (1.001-1.035) 09/24/16 10:37 Urine Protein Negative (NEGATIVE) 09/24/16 10:37 Urine Glucose (UA) Negative (NEGATIVE) 09/24/16 10:37 Urine Ketones Negative (NEGATIVE) 09/24/16 10:37 Urine Blood Negative (NEGATIVE) 09/24/16 10:37 Urine Nitrite Negative (NEGATIVE) 09/24/16 10:37 Urine Bilirubin Negative (NEGATIVE) 09/24/16 10:37 Urine Urobilinogen Negative E.U./dl (0.2-1.0) 09/24/16 10:37 Ur Leukocyte Esterase Negative (NEGATIVE) 09/24/16 10:37 RPR Titer Nonreactive (NONREACTIVE) 09/24/16 07:30 Assessment: 09/26/16 10:16 WITHDRAWAL SX Plan: CONTINUE DETOX INCREASE PROTONIX 40 MG PO DAILY. D/C PROTONIX 20 MG
[2016-09-26] MEDS: NICOTINE 21 MG/24 HOURS TOPICAL PATCH TD SCH (10:28)
[2016-09-26] MEDS: PRENATAL VITAMINS W/ FOLIC ACID TABLET (FP) PO SCH (10:28)
[2016-09-26] MEDS: PANTOPRAZOLE 20 MG TABLET (FP) PO SCH (10:29)
[2016-09-26] MEDS ORDERED: PANTOPRAZOLE 40 MG TABLET (FP) PO ONE (11:52)
[2016-09-26] MEDS: LOPERAMIDE HCL 2 MG CAPSULE PO PRN (17:43)
[2016-09-26] MEDS: chlordiazePOXIDE HCL 10 MG CAPSULE PO SCH (22:24)
[2016-09-26] MEDS: ZOLPIDEM TARTRATE 10 MG TABLET (PARK CARE ONLY) PO PRN (22:24)
[2016-09-26] MEDS: THIAMINE HCL 100 MG TABLET (FP) PO SCH (22:24)
[2016-09-27] MEDS: chlordiazePOXIDE HCL 10 MG CAPSULE PO SCH (06:14)
[2016-09-27] MEDS: MAG HYDROX/AL HYDROX/SIMETH 30 ML UNIT-DOSE CUP PO PRN (08:27)
[2016-09-27] MEDS: ACETAMINOPHEN 325 MG TABLET (FP) PO PRN (08:27)
[2016-09-27] MEDS: LOPERAMIDE HCL 2 MG CAPSULE PO PRN (08:29)
[2016-09-27 09:10] VITALS: BP 109/82; PULSE 68; TEMP 96.3
[2016-09-27] MEDS ORDERED: PANTOPRAZOLE 40 MG TABLET (FP) PO SCH (10:00)
--- NOTE | 2016-09-27 11:39 | DS ---
[facility] Detox Discharge Summary Admission Date: 09/23/16 Discharge Date: 09/27/16 - History Present History: Alcohol Dependence Additional Comments: DETOX COMPLETED. ALERT O X 3. NAD. Pertinent Past History: GERD ASTHMA BIPOLAR DISORDER INSOMNIA - Physical Exam Results Vital Signs: Vital Signs Temperature 96.3 F L 09/27/16 09:09 Pulse Rate 68 09/27/16 09:09 Respiratory Rate 18 09/27/16 09:09 Blood Pressure 109/82 09/27/16 09:09 O2 Sat by Pulse Oximetry (%) Pertinent Admission Physical Exam Findings: WITHDRAWAL SX - Treatment Hospital Course: Detox Protocol Followed, Detoxed Safely, Responded well, Discharged Condition Good - Medication Discharge Medications: Ambulatory Orders NK [No Known Home Medication] 08/01/16 - Diagnosis (1) Alcohol dependence with uncomplicated withdrawal Status: Acute (2) Nicotine dependence Status: Acute Qualifiers: Nicotine product type: cigarettes Substance use status: in withdrawal Qualified Code(s): F17.213 - Nicotine dependence, cigarettes, with withdrawal (3) Asthma Status: Chronic Qualifiers: Asthma severity: mild intermittent Asthma complication type: uncomplicated Qualified Code(s): J45.20 - Mild intermittent asthma, uncomplicated (4) GERD (gastroesophageal reflux disease) Status: Chronic Qualifiers: Esophagitis presence: without esophagitis Qualified Code(s): K21.9 - Gastro-esophageal reflux disease without esophagitis (5) Substance induced mood disorder Status: Acute (6) Insomnia Status: Chronic - AMA Did Patient Leave Against Medical Advice: No
== END 2016-09-27 10:35 | disposition home or self-care (01) | DRG 775 ==
LOC: YASAS 20:50 → Y3N 20:58
PROVIDERS: ADMIT Internal Medicine; ATTEND Internal Medicine
PROC: HZ2ZZZZ Detoxification Services for Substance Abuse Treatment (ICD-10-PCS; principal; 2016-09-23)
DX: F10.230 Alcohol dependence with withdrawal, uncomplicated (principal); F17.213 Nicotine dependence, cigarettes, with withdrawal; F19.24 Other psychoactive substance dependence with psychoactive substance-induced mood disorder; J45.20 Mild intermittent asthma, uncomplicated; K21.9 Gastro-esophageal reflux disease without esophagitis; G47.00 Insomnia, unspecified; Z91.5 Personal history of self-harm
CPT/HCPCS: 36415; 80053; 81003; 85027; 86593; 93005; 93010

== ENCOUNTER 2017-03-28 19:09 | Inpatient (IN) | payer OTHER ==
[2017-03-28 20:33] VITALS: BMI 18.8
--- NOTE | 2017-03-28 22:32 | HP ---
CIWA Score - CIWA Score Nausea/Vomitin-Mild Nausea/No Vomiting Muscle Tremors: 4-Moderate,w/Arms Extend Anxiety: 4-Mod. Anxious/Guarded Agitation: 4-Moderately Restless Paroxysmal Sweats: 1-Minimal Palms Moist Orientation: 0-Oriented Tacttile Disturbances: 0-None Auditory Disturbances: 0-None Visual Disturbances: 0-None Headache: 1-Very Mild CIWA-Ar Total Score: 15 Admission ROS BHS - HPI Chief Complaint: withdrawal sx Allergies/Adverse Reactions: Allergies Allergy/AdvReac Type Severity Reaction Status Date / Time lactose Allergy Verified 09/23/16 20:57 LACTOSE INTOLERANCE Allergy Uncoded 09/23/16 20:57 History of Present Illness: 26 years old male with long history of alcohol nicotine dependence has gerd and depression is admitted to detox Exam Limitations: No Limitations - Ebola screening Have you traveled outside of the country in the last 21 days: No Have you had contact with anyone from an Ebola affected area: No Have you been sick,other than usual withdrawal symptoms: No Do you have a fever: No - Review of Systems Constitutional: Loss of Appetite, Changes in sleep, Unintentional Wgt. Loss, Unexplained wgt Loss EENT: reports: No Symptoms Reported Respiratory: reports: Productive cough (white) Cardiac: reports: Chest Tightness GI: reports: Nausea, Poor Fluid Intake, Indigestion, Abdominal cramping : reports: No Symptoms Reported Musculoskeletal: reports: Back Pain, Joint Pain, Muscle Pain, Neck Pain, Joint Stiffness (right hand fingers) Integumentary: reports: No Symptoms Reported Neuro: reports: Tremors Endocrine: reports: No Symptoms Reported Hematology: reports: No Symptoms Reported Psychiatric: reports: Judgement Intact, Orientated x3, Anxious, Depressed Other Systems: Reviewed and Negative Patient History - Patient Medical History Hx Anemia: No Hx Asthma: No Hx Chronic Obstructive Pulmonary Disease (COPD): No Hx Cancer: No Hx Cardiac Disorders: No Hx Congestive Heart Failure: No Hx Hypertension: No Hx Hypercholesterolemia: No Hx Pacemaker: No HX Cerebrovascular Accident: No Hx Seizures: No Hx Dementia: No Hx Diabetes: No Hx Gastrointestinal Disorders: Yes (GERD) Hx Liver Disease: No Hx Genitourinary Disorders: No Hx Sexually Transmitted Disorders: No Hx Renal Disease (ESRD): No Hx Thyroid Disease: No Hx Human Immunodeficiency Virus (HIV): No Hx Hepatitis C: No Hx Depression: Yes Hx Suicide Attempt: Yes (12/2016 jump from top of roof) Hx Bipolar Disorder: No Hx Schizophrenia: No - Patient Surgical History Past Surgical History: No - PPD History Previous Implant?: Yes Documented Results: Negative w/proof Implanted On Prior [facility] Admission?: Yes Date: 07/31/16 Results: 0MM PPD to be Administered?: No - Smoking Cessation Smoking history: Current every day smoker Have you smoked in the past 12 months: Yes Aproximately how many cigarettes per day: 10 Cigars Per Day: 0 Hx Chewing Tobacco Use: No Initiated information on smoking cessation: Yes 'Breaking Loose' booklet given: 03/28/17 - Substance & Tx. History Hx Alcohol Use: Yes Hx Substance Use: No Substance Use Type: Alcohol Hx Substance Use Treatment: Yes (09/23-09/27/16 [facility]) - Substances Abused Alcohol Route: Oral Frequency: Daily Amount used: [id number] + pint volka Age of first use: 15 Date of Last Use: 03/27/17 Family Disease History - Family Disease History Family Disease History: Other: Father (ESTRANGED), Mother Admission [facility] Exam [facility] - Vital Signs Vital Signs: Vital Signs - 24 hr 03/28/17 20:32 Temperature 97.4 F L Pulse Rate 85 Respiratory 18 Rate Blood Pressure 140/82 - Physical General Appearance: Yes: Appropriately Dressed, Mild Distress, Thin, Tremorous, Irritable, Sweating, Anxious HEENTM: Yes: Hearing grossly Normal, Normal ENT Inspection, Normocephalic, Normal Voice Respiratory: Yes: Chest Non-Tender, Lungs Clear, Normal Breath Sounds, No Respiratory Distress, No Accessory Muscle Use Neck: Yes: Supple, Trachea in good position Breast: Yes: Breasts Symetrical Cardiology: Yes: Regular Rhythm, Regular Rate, S1, S2 Abdominal: Yes: Non Tender, Soft Genitourinary: Yes: Within Normal Limits Back: Yes: Normal Inspection Musculoskeletal: Yes: Gait Steady, Back pain, Joint Stiffness (right hand fingers), Muscle Pain Extremities: Yes: Non-Tender, Tremors, Other (cervical spine trauma 11/2016) 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: Fully Oriented, Alert, Normal Mood/Affect, Normal Response, Depressed Affect Integumentary: Yes: Warm Lymphatic: Yes: Within Normal Limits - Diagnostic (1) Alcohol dependence with uncomplicated withdrawal Current Visit: Yes Status: Acute (2) Nicotine dependence Current Visit: Yes Status: Acute Qualifiers: Nicotine product type: cigarettes Substance use status: in withdrawal Qualified Code(s): F17.213 - Nicotine dependence, cigarettes, with withdrawal (3) GERD (gastroesophageal reflux disease) Current Visit: Yes Status: Chronic Qualifiers: Esophagitis presence: without esophagitis Qualified Code(s): K21.9 - Gastro-esophageal reflux disease without esophagitis (4) Depression (emotion) Current Visit: Yes Status: Suspected Qualifiers: Depression Type: dysthymia Qualified Code(s): F34.1 - Dysthymic disorder (5) History of cervical spine trauma Current Visit: Yes Status: Chronic (6) Limited mobility Current Visit: Yes Status: Chronic Comment: right fingers Cleared for Admission [facility] - Detox or Rehab S Level of Care: Medically Managed Detox Regimen/Protocol: Librium S Breath Alcohol Content Breath Alcohol Content: 0
[2017-03-28] MEDS ORDERED: LOPERAMIDE HCL 2 MG CAPSULE PO PRN (22:40)
[2017-03-28] MEDS ORDERED: MAGNESIUM HYDROX 2400MG/30ML ORAL SUSPENSION 30 ML CUP PO PRN (22:40)
[2017-03-28] MEDS ORDERED: P-EPHED 60MG/TRIPROLIDI 2.5MG TABLET PO PRN (22:40)
[2017-03-28] MEDS ORDERED: diphenhydrAMINE HCL 50 MG CAPSULE PO PRN (22:40)
[2017-03-28] MEDS ORDERED: NICOTINE POLACRILEX 2 MG GUM BC PRN (22:40)
[2017-03-28] MEDS ORDERED: MAGNESIUM CITRATE 300 ML BOTTLE PO PRN (22:40)
[2017-03-28] MEDS ORDERED: hydrOXYzine PAMOATE 50 MG CAPSULE (FP) PO PRN (22:40)
[2017-03-29] MEDS ORDERED: chlordiazePOXIDE HCL 25 MG CAPSULE PO PRN (01:07)
[2017-03-29] MEDS: ACETAMINOPHEN 325 MG TABLET (FP) PO PRN (01:20)
[2017-03-29] MEDS: METHOCARBAMOL 500 MG TABLET PO PRN ×3 (01:22→22:28)
[2017-03-29] MEDS: MENTHOL/PHENOL 1 EACH UD MM PRN (01:22)
[2017-03-29] MEDS: MAG HYDROX/AL HYDROX/SIMETH 30 ML UNIT-DOSE CUP PO PRN (01:22)
[2017-03-29] MEDS: chlordiazePOXIDE HCL 25 MG CAPSULE PO SCH ×4 (05:49→22:25)
[2017-03-29] MEDS: GABAPENTIN 300 MG CAPSULE (FP) PO SCH ×3 (06:28→22:26)
[2017-03-29 10:00] LABS: MCH 31.6 pg (25.7-33.7); MCHC 33.7 g/dl (32.0-35.9); MEAN CELL VOLUME 93.6 fl (80-96); PLATELET COUNT 229 K/MM3 (134-434); RDW 13.6 % (11.9-15.9); WHITE BLOOD COUNT 5.2 K/mm3 (4.0-10.0)
[2017-03-29] MEDS: LIDOCAINE 5% TOPICAL PATCH TP SCH (10:21)
[2017-03-29] MEDS: RANITIDINE HCL 150 MG TABLET (FP) PO SCH ×2 (10:22→22:26)
[2017-03-29] MEDS: PRENATAL VITAMINS W/ FOLIC ACID TABLET (FP) PO SCH (10:22)
[2017-03-29] MEDS: QUEtiapine FUMARATE 25 MG TABLET (FP) PO SCH (10:24)
[2017-03-29] MEDS: NICOTINE 14 MG/24 HOURS TOPICAL PATCH TD SCH (10:25)
[2017-03-29 10:38] LABS: ALBUMIN 3.6 g/dl (3.4-5.0); ALK PHOS 71 U/L (45-117); ANION GAP 7 (8-16); BILIRUBIN,TOTAL 0.7 mg/dL (0.2-1.0); CALCIUM 8.9 mg/dL (8.5-10.1); CO2 26 mmol/L (21-32); GLUCOSE,RANDOM 99 mg/dL (74-106); SGOT/AST 16 U/L (15-37); SGPT/ALT 25 U/L (12-78); TOT PROT 6.5 g/dl (6.4-8.2)
[2017-03-29] MEDS: METHYL SALICYLATE/MENTHOL OINT 30 GM TUBE TP SCH (10:55)
--- NOTE | 2017-03-29 10:55 | CONSULT ---
[facility] Psychiatric Consult - Data Date of interview: 03/29/17 Admission source: [facility] Identifying data: This is 26 years old male with history of Bipolar Disorder, history of psychiatric hospitalization, iontoxicated with: Alcohol and Nicotine Substance Abuse History: - Smoking Cessation. Smoking history: Current every day smoker. Have you smoked in the past 12 months: Yes. Aproximately how many cigarettes per day: 10. Cigars Per Day: 0. Hx Chewing Tobacco Use: No. Initiated information on smoking cessation: Yes. 'Breaking Loose' booklet given : 03/28/17. - Substance & Tx. History. Hx Alcohol Use: Yes. Hx Substance Use : No. Substance Use Type: Alcohol. Hx Substance Use Treatment: Yes (09/23- [facility]). - Substances Abused. Alcohol. Route: Oral. Frequency: Daily. Amount used: [id number] + pint volka. Age of first use: 15. Date of Last Use: 03/27/17 Medical History: GERD, Neck injury history Psychiatric History: Patient reprots to carry Bopilar Disorder with most recent psychiatric admission on about 10 years ago, reports taking prior to admiossion : Seroquel 25mg poqd. Seroquel 50mg po qhs. Farrah[[id number] po tid Physical/Sexual Abuse/Trauma History: Denies Additional Comment: Seroquel 25mg poqd. Seroquel 50mg po qhs. Farrah[[id number] po tid Mental Status Exam - Mental Status Exam Alert and Oriented to: Person Cognitive Function: Fair Patient Appearance: Well Groomed Mood: Apprehensive Affect: Inappropriate Patient Behavior: Cooperative Speech Pattern: Appropriate Voice Loudness: Normal Thought Process: Goal Oriented Thought Disorder: Being Controlled, Paranoid Ideation Suicidal Ideation: Denies Homicidal Ideation: Denies Insight/Judgement: Fair Sleep: Difficulty falling asleep Appetite: Fair Muscle strength/Tone: Mild Hypotonicity Gait/Station: Normal Additional Comments: Seroquel 25mg poqd. Seroquel 50mg po qhs. Farrah[ [id number] po tid Psychiatric Findings - Problem List ([place] 1, 2,3) (1) Alcohol dependence with uncomplicated withdrawal Current Visit: Yes Status: Acute (2) Nicotine dependence Current Visit: Yes Status: Acute Qualifiers: Nicotine product type: cigarettes Substance use status: in withdrawal Qualified Code(s): F17.213 - Nicotine dependence, cigarettes, with withdrawal (3) Depression (emotion) Current Visit: Yes Status: Suspected Qualifiers: Depression Type: dysthymia Qualified Code(s): F34.1 - Dysthymic disorder (4) Bipolar disorder Current Visit: No Status: Suspected Comment: No symptom elicited.Historical diagnosis. (5) Substance induced mood disorder Current Visit: No Status: Acute - Initial Treatment Plan Initial Treatment Plan: Seroquel 25mg poqd. Seroquel 50mg po qhs. Farrah[ [id number] po tid
--- NOTE | 2017-03-29 11:42 | PN ---
S CIWA - CIWA Score Nausea/Vomitin Muscle Tremors: 3 Anxiety: 4-Mod. Anxious/Guarded Agitation: 3 Paroxysmal Sweats: No Perspiration Orientation: 2-Disoriented Date<2 days Tacttile Disturbances: 3-Moderate Itch/Numb/Burn Auditory Disturbances: 0-None Visual Disturbances: 1-Very Mild Sensitivity Headache: 0-None Present CIWA-Ar Total Score: 19 BHS Progress Note (SOAP) Subjective: Body Aches, Stomach cramping, Nausea, Diarrhea, Interrupted Sleep, Tremors. Objective: PT. A & O X 2 (DISORIENTED ABOUT DAY / DATE). PT. OBSERVED AMBULATING ON UNIT. NO ACUTE DISTRESS. 03/29/17 11:40 Vital Signs Temperature 97.0 F L 03/29/17 09:25 Pulse Rate 107 H 03/29/17 09:25 Respiratory Rate 20 03/29/17 09:25 Blood Pressure 114/64 03/29/17 09:25 O2 Sat by Pulse Oximetry (%) Laboratory Tests 03/29/17 03/29/17 07:00 07:00 WBC 5.2 D RBC 4.31 Hgb 13.6 Hct 40.3 MCV 93.6 MCH 31.6 MCHC 33.7 RDW 13.6 Plt Count 229 D MPV 8.0 Sodium 139 Potassium 3.7 Chloride 106 Carbon Dioxide 26 Anion Gap 7 L BUN 17 D Creatinine 1.0 Creat Clearance w eGFR > 60 Random Glucose 99 D Calcium 8.9 Total Bilirubin 0.7 D AST 16 D ALT 25 D Alkaline Phosphatase 71 Total Protein 6.5 Albumin 3.6 LABS NOTED. UA, RPR, AND HIV AB RESULTS PENDING. 03/29/17 11:41 Assessment: 03/29/17 11:41 WITHDRAWAL SYMPTOMS. Plan: CONTINUE DETOX.
[2017-03-29] MEDS ORDERED: PNEUMOCOCCAL 23 VACCINE 0.5 ML VIAL IM ONE (12:00)
[2017-03-29] MEDS ORDERED: FLU VACCINE QUAD 60 MCG/0.5 ML (MDV 17-18) IM ONE (12:00)
[2017-03-29] MEDS ORDERED: PNEUMOC 13-VAL CONJ-DIP CRM/PF 0.5 ML DISP.SYRIN IM ONE (12:00)
[2017-03-29 12:21] LABS: HIV 1 & 2 AB NEGATIVE; HIV 1 AGp24 NEGATIVE
--- NOTE | 2017-03-29 15:54 | EKG ---
Test Reason : Blood Pressure : / mmHG Vent. Rate : 053 BPM Atrial Rate : 053 BPM P-R Int : 114 ms QRS Dur : 084 ms QT Int : 414 ms P-R-T Axes : 056 036 027 degrees QTc Int : 388 ms SINUS BRADYCARDIA OTHERWISE NORMAL ECG WHEN COMPARED WITH ECG OF 23-SEP-2016 21:24, VENT. RATE HAS DECREASED BY 49 BPM NON-SPECIFIC CHANGE IN ST SEGMENT IN INFERIOR LEADS QT HAS SHORTENED Confirmed by SHAHNAZ MILLIGAN, KAREN ([id number]) on 03/29/2017 3:53:51 PM Referred By: Aidan Rodriguez Confirmed By:KAREN CHRISTIE MD
[2017-03-29 16:40] LABS: URINE APPEARANCE CLEAR; URINE BILIRUBIN NEGATIVE (NEGATIVE); URINE BLOOD NEGATIVE (NEGATIVE); URINE COLOR YELLOW; URINE GLUCOSE (UA) NEGATIVE (NEGATIVE); URINE KETONE NEGATIVE (NEGATIVE); URINE LEUK ESTERASE NEGATIVE (NEGATIVE); URINE NITRITE NEGATIVE (NEGATIVE); URINE PROTEIN NEGATIVE (NEGATIVE); URINE UROBILINOGEN NEGATIVE mg/dL (0.2-1.0)
[2017-03-29] MEDS: LIDOCAINE PATCH REMOVAL MC SCH (22:25)
[2017-03-29] MEDS: QUEtiapine FUMARATE 50 MG TABLET PO SCH (22:26)
[2017-03-29] MEDS: THIAMINE HCL 100 MG TABLET (FP) PO SCH (22:26)
[2017-03-30] MEDS: GABAPENTIN 300 MG CAPSULE (FP) PO SCH ×3 (05:20→22:17)
[2017-03-30] MEDS: chlordiazePOXIDE HCL 25 MG CAPSULE PO SCH ×4 (05:20→22:17)
[2017-03-30] MEDS: PRENATAL VITAMINS W/ FOLIC ACID TABLET (FP) PO SCH (10:18)
[2017-03-30] MEDS: RANITIDINE HCL 150 MG TABLET (FP) PO SCH ×2 (10:18→22:17)
[2017-03-30] MEDS: QUEtiapine FUMARATE 25 MG TABLET (FP) PO SCH (10:18)
[2017-03-30] MEDS: METHOCARBAMOL 500 MG TABLET PO PRN ×2 (10:19→22:19)
[2017-03-30] MEDS: LIDOCAINE 5% TOPICAL PATCH TP SCH (10:20)
[2017-03-30] MEDS: NICOTINE 14 MG/24 HOURS TOPICAL PATCH TD SCH (10:21)
[2017-03-30] MEDS: METHYL SALICYLATE/MENTHOL OINT 30 GM TUBE TP SCH (10:21)
[2017-03-30] MEDS: guaiFENesin/D-METHORPHAN HB 10 ML UNIT-DOSE CUPS PO PRN (10:34)
--- NOTE | 2017-03-30 11:58 | PN ---
[facility] CIWA - CIWA Score Nausea/Vomitin-No Nausea/No Vomiting Muscle Tremors: 4-Moderate,w/Arms Extend Anxiety: 4-Mod. Anxious/Guarded Agitation: 4-Moderately Restless Paroxysmal Sweats: 1-Minimal Palms Moist Orientation: 0-Oriented Tacttile Disturbances: 3-Moderate Itch/Numb/Burn Auditory Disturbances: 0-None Visual Disturbances: 0-None Headache: 0-None Present CIWA-Ar Total Score: 16 BHS Progress Note (SOAP) Subjective: ANXIETY,SWEATS, TREMORS, BODYACHES. Objective: 03/30/17 11:57 Vital Signs Temperature 97 F L 03/30/17 09:50 Pulse Rate 97 H 03/30/17 09:50 Respiratory Rate 18 03/30/17 09:50 Blood Pressure 125/82 03/30/17 09:50 O2 Sat by Pulse Oximetry (%) Laboratory Last Values WBC 5.2 K/mm3 (4.0-10.0) D 03/29/17 07:00 RBC 4.31 M/mm3 (4.00-5.60) 03/29/17 07:00 Hgb 13.6 GM/dL (11.7-16.9) 03/29/17 07:00 Hct 40.3 % (35.4-49) 03/29/17 07:00 MCV 93.6 fl (80-96) 03/29/17 07:00 MCH 31.6 pg (25.7-33.7) 03/29/17 07:00 MCHC 33.7 g/dl (32.0-35.9) 03/29/17 07:00 RDW 13.6 % (11.9-15.9) 03/29/17 07:00 Plt Count 229 K/MM3 (134-434) D 03/29/17 07:00 MPV 8.0 fl (7.5-11.1) 03/29/17 07:00 Sodium 139 mmol/L (136-145) 03/29/17 07:00 Potassium 3.7 mmol/L (3.5-5.1) 03/29/17 07:00 Chloride 106 mmol/L (98-107) 03/29/17 07:00 Carbon Dioxide 26 mmol/L (21-32) 03/29/17 07:00 Anion Gap 7 (8-16) L 03/29/17 07:00 BUN 17 mg/dL (7-18) D 03/29/17 07:00 Creatinine 1.0 mg/dL (0.7-1.3) 03/29/17 07:00 Creat Clearance w eGFR > 60 (>60) 03/29/17 07:00 Random Glucose 99 mg/dL (74-106) D 03/29/17 07:00 Calcium 8.9 mg/dL (8.5-10.1) 03/29/17 07:00 Total Bilirubin 0.7 mg/dL (0.2-1.0) D 03/29/17 07:00 AST 16 U/L (15-37) D 03/29/17 07:00 ALT 25 U/L (12-78) D 03/29/17 07:00 Alkaline Phosphatase 71 U/L (45-117) 03/29/17 07:00 Total Protein 6.5 g/dl (6.4-8.2) 03/29/17 07:00 Albumin 3.6 g/dl (3.4-5.0) 03/29/17 07:00 Urine Color Yellow 03/29/17 14:00 Urine Appearance Clear 03/29/17 14:00 Urine pH 5.0 (5.0-8.0) 03/29/17 14:00 Ur Specific [place] 1.025 (1.005-1.025) 03/29/17 14:00 Urine Protein Negative (NEGATIVE) 03/29/17 14:00 Urine Glucose (UA) Negative (NEGATIVE) 03/29/17 14:00 Urine Ketones Negative (NEGATIVE) 03/29/17 14:00 Urine Blood Negative (NEGATIVE) 03/29/17 14:00 Urine Nitrite Negative (NEGATIVE) 03/29/17 14:00 Urine Bilirubin Negative (NEGATIVE) 03/29/17 14:00 Urine Urobilinogen Negative mg/dL (0.2-1.0) 03/29/17 14:00 RPR Titer Nonreactive (NONREACTIVE) 03/29/17 07:00 HIV 1&2 Antibody Screen Negative 03/29/17 07:00 HIV P24 Antigen Negative 03/29/17 07:00 Assessment: 03/30/17 11:58 WITHDRAWAL SX Plan: CONTINUE DETOX
[2017-03-30] MEDS: ACETAMINOPHEN 325 MG TABLET (FP) PO PRN (12:17)
[2017-03-30] MEDS: QUEtiapine FUMARATE 50 MG TABLET PO SCH (22:16)
[2017-03-30] MEDS: THIAMINE HCL 100 MG TABLET (FP) PO SCH (22:17)
[2017-03-30] MEDS: LIDOCAINE PATCH REMOVAL MC SCH (22:19)
[2017-03-30] MEDS: MAG HYDROX/AL HYDROX/SIMETH 30 ML UNIT-DOSE CUP PO PRN (22:20)
[2017-03-31] MEDS: ACETAMINOPHEN 325 MG TABLET (FP) PO PRN ×2 (05:29→10:29)
[2017-03-31] MEDS: chlordiazePOXIDE 5 MG CAPSULE PO SCH ×4 (05:29→22:43)
[2017-03-31] MEDS: GABAPENTIN 300 MG CAPSULE (FP) PO SCH ×3 (05:29→22:43)
[2017-03-31] MEDS: METHOCARBAMOL 500 MG TABLET PO PRN ×4 (05:31→22:43)
[2017-03-31] MEDS: NICOTINE 14 MG/24 HOURS TOPICAL PATCH TD SCH (10:23)
[2017-03-31] MEDS: RANITIDINE HCL 150 MG TABLET (FP) PO SCH ×2 (10:23→22:43)
[2017-03-31] MEDS: QUEtiapine FUMARATE 25 MG TABLET (FP) PO SCH (10:23)
[2017-03-31] MEDS: LIDOCAINE 5% TOPICAL PATCH TP SCH (10:23)
[2017-03-31] MEDS: PRENATAL VITAMINS W/ FOLIC ACID TABLET (FP) PO SCH (10:23)
[2017-03-31] MEDS: METHYL SALICYLATE/MENTHOL OINT 30 GM TUBE TP SCH (10:23)
[2017-03-31] MEDS: guaiFENesin/D-METHORPHAN HB 10 ML UNIT-DOSE CUPS PO PRN (10:28)
--- NOTE | 2017-03-31 16:08 | PN ---
BHS Progress Note (SOAP) Subjective: Sweating, Body aches, Nausea, Interrupted sleep, H/A, Diarrhea. Objective: PT. A & O X 3, OBSERVED AMBULATING ON UNIT. NO ACUTE DISTRESS. 03/31/17 16:06 Vital Signs Temperature 96.5 F L 03/31/17 11:10 Pulse Rate 87 03/31/17 11:10 Respiratory Rate 18 03/31/17 11:10 Blood Pressure 125/57 03/31/17 11:10 O2 Sat by Pulse Oximetry (%) Laboratory Tests 03/29/17 03/29/17 03/29/17 07:00 07:00 07:00 WBC 5.2 D RBC 4.31 Hgb 13.6 Hct 40.3 MCV 93.6 MCH 31.6 MCHC 33.7 RDW 13.6 Plt Count 229 D MPV 8.0 Sodium 139 Potassium 3.7 Chloride 106 Carbon Dioxide 26 Anion Gap 7 L BUN 17 D Creatinine 1.0 Creat Clearance w eGFR > 60 Random Glucose 99 D Calcium 8.9 Total Bilirubin 0.7 D AST 16 D ALT 25 D Alkaline Phosphatase 71 Total Protein 6.5 Albumin 3.6 Urine Color Urine Appearance Urine pH Ur Specific [place] Urine Protein Urine Glucose (UA) Urine Ketones Urine Blood Urine Nitrite Urine Bilirubin Urine Urobilinogen RPR Titer Nonreactive HIV 1&2 Antibody Screen HIV P24 Antigen 03/29/17 03/29/17 07:00 14:00 WBC RBC Hgb Hct MCV MCH MCHC RDW Plt Count MPV Sodium Potassium Chloride Carbon Dioxide Anion Gap BUN Creatinine Creat Clearance w eGFR Random Glucose Calcium Total Bilirubin AST ALT Alkaline Phosphatase Total Protein Albumin Urine Color Yellow Urine Appearance Clear Urine pH 5.0 Ur Specific [place] 1.025 Urine Protein Negative Urine Glucose (UA) Negative Urine Ketones Negative Urine Blood Negative Urine Nitrite Negative Urine Bilirubin Negative Urine Urobilinogen Negative RPR Titer HIV 1&2 Antibody Screen Negative HIV P24 Antigen Negative LABS NOTED. Assessment: 03/31/17 16:07 WITHDRAWAL SYMPTOMS. Plan: CONTINUE DETOX. PRN IMMODIUM FOR DIARRHEA.
[2017-03-31] MEDS: LIDOCAINE PATCH REMOVAL MC SCH (22:42)
[2017-03-31] MEDS: THIAMINE HCL 100 MG TABLET (FP) PO SCH (22:42)
[2017-03-31] MEDS: QUEtiapine FUMARATE 50 MG TABLET PO SCH (22:42)
[2017-04-01] MEDS ORDERED: chlordiazePOXIDE HCL 10 MG CAPSULE PO SCH (05:00)
[2017-04-01] MEDS: ACETAMINOPHEN 325 MG TABLET (FP) PO PRN (05:37)
[2017-04-01] MEDS: GABAPENTIN 300 MG CAPSULE (FP) PO SCH (05:38)
[2017-04-01] MEDS: METHOCARBAMOL 500 MG TABLET PO PRN (05:38)
[2017-04-01] MEDS: guaiFENesin/D-METHORPHAN HB 10 ML UNIT-DOSE CUPS PO PRN (05:39)
[2017-04-01] MEDS: MENTHOL/PHENOL 1 EACH UD MM PRN (05:39)
[2017-04-01 07:00] VITALS: BP 125/87; PULSE 67; TEMP 96.4
--- NOTE | 2017-04-01 12:22 | DS ---
[facility] Detox Discharge Summary Admission Date: 03/28/17 Discharge Date: 04/01/17 - History Present History: Alcohol Dependence Pertinent Past History: GERD Chronic spinal disorder - Physical Exam Results Vital Signs: Vital Signs Temperature 96.4 F L 04/01/17 07:00 Pulse Rate 67 04/01/17 07:00 Respiratory Rate 16 04/01/17 07:00 Blood Pressure 125/87 04/01/17 07:00 O2 Sat by Pulse Oximetry (%) Pertinent Admission Physical Exam Findings: Withdrawal symptoms Laboratory Tests 03/29/17 03/29/17 03/29/17 07:00 07:00 07:00 WBC 5.2 D RBC 4.31 Hgb 13.6 Hct 40.3 MCV 93.6 MCH 31.6 MCHC 33.7 RDW 13.6 Plt Count 229 D MPV 8.0 Sodium 139 Potassium 3.7 Chloride 106 Carbon Dioxide 26 Anion Gap 7 L BUN 17 D Creatinine 1.0 Creat Clearance w eGFR > 60 Random Glucose 99 D Calcium 8.9 Total Bilirubin 0.7 D AST 16 D ALT 25 D Alkaline Phosphatase 71 Total Protein 6.5 Albumin 3.6 Urine Color Urine Appearance Urine pH Ur Specific [place] Urine Protein Urine Glucose (UA) Urine Ketones Urine Blood Urine Nitrite Urine Bilirubin Urine Urobilinogen RPR Titer Nonreactive HIV 1&2 Antibody Screen HIV P24 Antigen 03/29/17 03/29/17 07:00 14:00 WBC RBC Hgb Hct MCV MCH MCHC RDW Plt Count MPV Sodium Potassium Chloride Carbon Dioxide Anion Gap BUN Creatinine Creat Clearance w eGFR Random Glucose Calcium Total Bilirubin AST ALT Alkaline Phosphatase Total Protein Albumin Urine Color Yellow Urine Appearance Clear Urine pH 5.0 Ur Specific [place] 1.025 Urine Protein Negative Urine Glucose (UA) Negative Urine Ketones Negative Urine Blood Negative Urine Nitrite Negative Urine Bilirubin Negative Urine Urobilinogen Negative RPR Titer HIV 1&2 Antibody Screen Negative HIV P24 Antigen Negative Labs noted - Treatment Hospital Course: Detox Protocol Followed, Detoxed Safely, Responded well, Discharged Condition Good - Medication Discharge Medications: Ambulatory Orders Gabapentin [Neurontin -] 300 mg PO TID 03/29/17 Gabapentin [Neurontin -] 300 mg PO TID #90 cap 03/29/17 Lidocaine - 700 mg TP DAILY 03/29/17 Methocarbamol [Robaxin -] 500 mg PO QID PRN 03/29/17 Quetiapine Fumarate [Seroquel -] 25 mg PO DAILY #30 tablet 03/29/17 Quetiapine Fumarate [Seroquel -] 50 mg PO HS #30 tablet 03/29/17 Ranitidine [Zantac -] 150 mg PO BID 03/29/17 - Diagnosis (1) Alcohol dependence with uncomplicated withdrawal Status: Acute (2) Nicotine dependence Status: Chronic Qualifiers: Nicotine product type: cigarettes Substance use status: in withdrawal Qualified Code(s): F17.213 - Nicotine dependence, cigarettes, with withdrawal; F17.213 - Nicotine dependence, cigarettes, with withdrawal (3) GERD (gastroesophageal reflux disease) Status: Chronic Qualifiers: Esophagitis presence: without esophagitis Qualified Code(s): K21.9 - Gastro-esophageal reflux disease without esophagitis; K21.9 - Gastro- esophageal reflux disease without esophagitis; K21.9 - Gastro-esophageal reflux disease without esophagitis (4) History of cervical spine trauma Status: Chronic (5) Depression (emotion) Status: Chronic Qualifiers: Depression Type: dysthymia Qualified Code(s): F34.1 - Dysthymic disorder; F34.1 - Dysthymic disorder; F34.1 - Dysthymic disorder - AMA Did Patient Leave Against Medical Advice: No
== END 2017-04-01 09:35 | disposition home or self-care (01) | DRG 775 ==
LOC: YASAS 19:09 → Y3N 21:58
PROVIDERS: ADMIT Internal Medicine; ATTEND Internal Medicine
PROC: HZ2ZZZZ Detoxification Services for Substance Abuse Treatment (ICD-10-PCS; principal; 2017-03-28)
DX: F10.230 Alcohol dependence with withdrawal, uncomplicated (principal); F17.213 Nicotine dependence, cigarettes, with withdrawal; F34.1 Dysthymic disorder; F19.24 Other psychoactive substance dependence with psychoactive substance-induced mood disorder; F31.9 Bipolar disorder, unspecified; K21.9 Gastro-esophageal reflux disease without esophagitis; E73.9 Lactose intolerance, unspecified; Z91.011 Allergy to milk products; Z91.5 Personal history of self-harm
CPT/HCPCS: 36415; 80053; 81003; 85027; 86593; 87389; 90688; 90732; 93005; 93010; G0008; G0009

== ENCOUNTER 2017-06-02 14:13 | Inpatient (IN) | payer OTHER ==
[2017-06-02 16:32] VITALS: BMI 23.1
[2017-06-02] MEDS ORDERED: guaiFENesin/D-METHORPHAN HB 10 ML UNIT-DOSE CUPS PO PRN (17:00)
[2017-06-02] MEDS ORDERED: MAG HYDROX/AL HYDROX/SIMETH 30 ML UNIT-DOSE CUP PO PRN (17:00)
[2017-06-02] MEDS ORDERED: ACETAMINOPHEN 325 MG TABLET (FP) PO PRN (17:00)
[2017-06-02] MEDS ORDERED: LOPERAMIDE HCL 2 MG CAPSULE PO PRN (17:00)
[2017-06-02] MEDS ORDERED: MAGNESIUM CITRATE 300 ML BOTTLE PO PRN (17:00)
[2017-06-02] MEDS ORDERED: hydrOXYzine PAMOATE 50 MG CAPSULE (FP) PO PRN (17:00)
[2017-06-02] MEDS ORDERED: NICOTINE POLACRILEX 2 MG GUM BUC PRN (17:00)
[2017-06-02] MEDS ORDERED: P-EPHED 60MG/TRIPROLIDI 2.5MG TABLET PO PRN (17:00)
[2017-06-02] MEDS ORDERED: chlordiazePOXIDE HCL 25 MG CAPSULE PO PRN (17:00)
[2017-06-02] MEDS ORDERED: chlordiazePOXIDE HCL 25 MG CAPSULE PO ONE (17:00)
[2017-06-02] MEDS ORDERED: MENTHOL/PHENOL 1 EACH UD MM PRN (17:00)
[2017-06-02] MEDS ORDERED: MAGNESIUM HYDROX 2400MG/30ML ORAL SUSPENSION 30 ML CUP PO PRN (17:00)
--- NOTE | 2017-06-02 17:36 | HP ---
CIWA Score - CIWA Score Nausea/Vomitin-Mild Nausea/No Vomiting Muscle Tremors: 3 Anxiety: 3 Agitation: 3 Paroxysmal Sweats: 3 Orientation: 0-Oriented Tacttile Disturbances: 0-None Auditory Disturbances: 0-None Visual Disturbances: 0-None Headache: 0-None Present CIWA-Ar Total Score: 13 Admission ROS BHS - HPI Chief Complaint: Withdrawal sx. Allergies/Adverse Reactions: Allergies Allergy/AdvReac Type Severity Reaction Status Date / Time lactose Allergy Verified 06/02/17 16:45 No Known Drug Allergies Allergy Verified 06/02/17 17:12 SHELLFISH Allergy Severe Hives Uncoded 06/02/17 17:11 LACTOSE INTOLERANCE Allergy Uncoded 06/02/17 16:45 History of Present Illness: 26 y/o man with a long hx. of alcoholism is admitted for detox. Pt. has been in previous detox denies significant sobriety. Exam Limitations: No Limitations - Ebola screening Have you traveled outside of the country in the last 21 days: No (N) Have you had contact with anyone from an Ebola affected area: No Have you been sick,other than usual withdrawal symptoms: No Do you have a fever: No - Review of Systems Constitutional: Diaphoresis EENT: reports: No Symptoms Reported Respiratory: reports: Shortness of Breath (smoking) Cardiac: reports: No Symptoms Reported GI: reports: Nausea, Abdominal cramping : reports: No Symptoms Reported Musculoskeletal: reports: Back Pain, Joint Pain, Neck Pain Integumentary: reports: Sweating Endocrine: reports: No Symptoms Reported Hematology: reports: No Symptoms Reported Psychiatric: reports: No Sypmtoms Reported Other Systems: Reviewed and Negative Patient History - Patient Medical History Hx Anemia: No Hx Asthma: Yes (as a child) Hx Chronic Obstructive Pulmonary Disease (COPD): No Hx Cancer: No Hx Cardiac Disorders: No Hx Congestive Heart Failure: No Hx Hypertension: No Hx Hypercholesterolemia: No Hx Pacemaker: No HX Cerebrovascular Accident: No Hx Seizures: No Hx Dementia: No Hx Diabetes: No Hx Gastrointestinal Disorders: Yes (ACID REFLUX) Hx Liver Disease: No Hx Genitourinary Disorders: No Hx Sexually Transmitted Disorders: No Hx Renal Disease (ESRD): No Hx Thyroid Disease: No Hx Human Immunodeficiency Virus (HIV): No Hx Hepatitis C: No Hx Depression: Yes Hx Suicide Attempt: Yes (12/2016 jump from top of roof) Hx Bipolar Disorder: No Hx Schizophrenia: No - Patient Surgical History Past Surgical History: No - PPD History Previous Implant?: Yes Documented Results: Negative w/proof Date: 07/31/16 Results: 0 MM PPD to be Administered?: No - Smoking Cessation Smoking history: Current every day smoker Have you smoked in the past 12 months: Yes Aproximately how many cigarettes per day: 10 Cigars Per Day: 0 Hx Chewing Tobacco Use: No Initiated information on smoking cessation: Yes 'Breaking Loose' booklet given: 06/02/17 - Substance & Tx. History Hx Alcohol Use: Yes Hx Substance Use: No Substance Use Type: Alcohol Hx Substance Use Treatment: Yes (Detox 03/2017 at [facility]) - Substances Abused Alcohol Frequency: Daily Amount used: Cognac 1 PINT ON FRI AND SAT, BEER 1(6pack) Age of first use: 15 Date of Last Use: 06/02/17 Family Disease History - Family Disease History Family Disease History: Diabetes: Grandparent, Other: Father (ESTRANGED), Mother (Cocaine,Alcohol, Depression), Brother (Alcohol) Admission Physical Exam [facility] - Vital Signs Vital Signs: Vital Signs - 24 hr 06/02/17 16:28 Temperature 98.7 F Pulse Rate 112 H Respiratory 18 Rate Blood Pressure 115/65 - Physical General Appearance: Yes: Tremorous, Irritable, Sweating, Anxious HEENTM: Yes: Within Normal Limits Respiratory: Yes: Chest Non-Tender, Lungs Clear, Normal Breath Sounds Neck: Yes: Supple Breast: Yes: Breast Exam Deferred Cardiology: Yes: Regular Rhythm, Regular Rate, S1, S2 Abdominal: Yes: Normal Bowel Sounds, Non Tender, Flat Genitourinary: Yes: Within Normal Limits Back: Yes: Within Normal Limits Musculoskeletal: Yes: Other (limited ROM 4th & 5th fingers rt. hand) Extremities: Yes: Tremors 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: Fully Oriented, Alert Integumentary: Yes: Within Normal Limits Lymphatic: Yes: Within Normal Limits - Diagnostic (1) Alcohol dependence with uncomplicated withdrawal Current Visit: Yes Status: Acute (2) Asthma Current Visit: No Status: Chronic Qualifiers: Asthma severity: mild intermittent Asthma complication type: uncomplicated Qualified Code(s): J45.20 - Mild intermittent asthma, uncomplicated (3) GERD (gastroesophageal reflux disease) Current Visit: Yes Status: Chronic Qualifiers: Esophagitis presence: without esophagitis Qualified Code(s): K21.9 - Gastro -esophageal reflux disease without esophagitis Cleared for Admission [facility] - Detox or Rehab [facility] Level of Care: Medically Managed Detox Regimen/Protocol: Librium [facility] Breath Alcohol Content Breath Alcohol Content: 0.270 Urine Drug Screen - Results Drug Screen Negative: No Urine Drug Screen Results: TCA-Tricyclic Antidepress
[2017-06-02] MEDS: chlordiazePOXIDE HCL 25 MG CAPSULE PO SCH ×2 (18:41→22:09)
[2017-06-02] MEDS: NICOTINE 21 MG/24 HOURS TOPICAL PATCH TD SCH (18:41)
[2017-06-02] MEDS: THIAMINE HCL 100 MG TABLET (FP) PO SCH (22:09)
[2017-06-02 23:50] LABS: URINE APPEARANCE CLEAR; URINE BILIRUBIN NEGATIVE (NEGATIVE); URINE BLOOD NEGATIVE (NEGATIVE); URINE COLOR LT. YELLOW; URINE GLUCOSE (UA) NEGATIVE (NEGATIVE); URINE KETONE NEGATIVE (NEGATIVE); URINE NITRITE NEGATIVE (NEGATIVE); URINE PROTEIN NEGATIVE (NEGATIVE); URINE UROBILINOGEN 0.2 mg/dL (0.2-1.0)
[2017-06-03] MEDS: chlordiazePOXIDE HCL 25 MG CAPSULE PO SCH ×4 (05:21→22:31)
[2017-06-03] MEDS: IBUPROFEN 400 MG TABLET (FP) PO PRN (05:23)
--- NOTE | 2017-06-03 07:13 | CONSULT ---
[facility] Psychiatric Consult - Data Date of interview: 06/03/17 Admission source: Self-referred Identifying data: Mr Judd is a 26 years old single Black male, unemployed on workers comp, homeless Substance Abuse History: Reports history of alcohol use. Refer to addiction counselor's note for more informatio Medical History: Significant for childhood bronchial asthma, GERD. Smokes 10 cigarettes daily Psychiatric History: Reports being diagnosed with Bipolar Disorder and has had 2 previous psychiatric admissions to [facility] and more recently to [facility] in Apr 2017 for suicidal ideations. Reports that he was discharged on Zoloft 50 mg po daily and Zyprexa 5 mg po daily and [facility]. Claims due to transportation issue he failed to follow discharge instruction but continued to take medications on & off. In the past, he reports attending aftercare at [facility]. Reports history of previous suicidal behavior. Claims that last December, he called 911 because he was thinking of jumping off a roof top. He said that he was taken to [facility] ED where he was evaluated, observed and eventually discharged. Physical/Sexual Abuse/Trauma History: Denies history of verbal, physical or sexual abuse aswell as DV relationship Additional Comment: Reports history of one false for mistaken identity Mental Status Exam - Mental Status Exam Alert and Oriented to: Time, Place, Person Cognitive Function: Fair Patient Appearance: Well Groomed Mood: Depressed Affect: Normal Range Patient Behavior: Cooperative Voice Loudness: Normal Thought Process: Intact, Goal Oriented Hallucinations: Denies Suicidal Ideation: Denies Homicidal Ideation: Denies Insight/Judgement: Poor Sleep: Poorly Appetite: Poor Muscle strength/Tone: Normal Gait/Station: Normal Psychiatric Findings - Problem List ([place] 1, 2,3) (1) Bipolar disorder Current Visit: No Status: Suspected Comment: No symptom elicited.Historical diagnosis. (2) Substance induced mood disorder Current Visit: No Status: Acute (3) Substance-induced sleep disorder Current Visit: Yes Status: Acute (4) Alcohol dependence with uncomplicated withdrawal Current Visit: Yes Status: Acute (5) Nicotine dependence Current Visit: Yes Status: Chronic Qualifiers: Nicotine product type: cigarettes Substance use status: in withdrawal Qualified Code(s): F17.213 - Nicotine dependence, cigarettes, with withdrawal (6) GERD (gastroesophageal reflux disease) Current Visit: Yes Status: Chronic Qualifiers: Esophagitis presence: without esophagitis Qualified Code(s): K21.9 - Gastro -esophageal reflux disease without esophagitis (7) Asthma Current Visit: Yes Status: Chronic Qualifiers: Asthma severity: mild intermittent Asthma complication type: uncomplicated (8) History of cervical spine trauma Current Visit: No Status: Chronic - Initial Treatment Plan Initial Treatment Plan: 1) Start Zoloft 50 mg po daily, Zyprexa 5 mg po daily and Ambien 10 mg po HS prn for insomnia. 2) Continue inpatient detoxification
--- NOTE | 2017-06-03 08:58 | EKG ---
Test Reason : Blood Pressure : / mmHG Vent. Rate : 088 BPM Atrial Rate : 088 BPM P-R Int : 124 ms QRS Dur : 086 ms QT Int : 364 ms P-R-T Axes : 075 -57 040 degrees QTc Int : 440 ms NORMAL SINUS RHYTHM POSSIBLE LEFT ATRIAL ENLARGEMENT LEFT ANTERIOR FASCICULAR BLOCK ABNORMAL ECG WHEN COMPARED WITH ECG OF 29-MAR-2017 01:34, VENT. RATE HAS INCREASED BY 35 BPM LEFT ANTERIOR FASCICULAR BLOCK IS NOW PRESENT NON-SPECIFIC CHANGE IN ST SEGMENT IN ANTERIOR LEADS QT HAS LENGTHENED Confirmed by AZAEL MILLIGAN, GERONIMO ([id number]) on 06/03/2017 8:57:49 AM Referred By: Confirmed By:GERONIMO ADDISON MD
[2017-06-03] MEDS: NICOTINE 21 MG/24 HOURS TOPICAL PATCH TD SCH (10:08)
[2017-06-03] MEDS: PRENATAL VITAMINS W/ FOLIC ACID TABLET (FP) PO SCH (10:08)
[2017-06-03] MEDS: SERTRALINE HCL 50 MG TABLET (FP) PO SCH (10:09)
[2017-06-03] MEDS ORDERED: GABAPENTIN 300 MG CAPSULE (FP) PO SCH (10:30)
[2017-06-03] MEDS: OLANZapine 5 MG TABLET PO SCH (10:56)
[2017-06-03 11:36] LABS: MCH 32.2 pg (25.7-33.7); MCHC 33.7 g/dl (32.0-35.9); MEAN CELL VOLUME 95.5 fl (80-96); MEAN PLT VOLUME 7.8 fl (7.5-11.1); PLATELET COUNT 181 K/MM3 (134-434); RDW 13.8 % (11.9-15.9); WHITE BLOOD COUNT 4.5 K/mm3 (4.0-10.0)
[2017-06-03 12:02] LABS: CALCIUM 8.2 mg/dL (8.5-10.1)
[2017-06-03 12:08] LABS: ALBUMIN 3.6 g/dl (3.4-5.0); ALK PHOS 82 U/L (45-117); ANION GAP 7 (8-16); BILIRUBIN,TOTAL 0.4 mg/dL (0.2-1.0); CO2 28 mmol/L (21-32); CREATININE 1.1 mg/dL (0.7-1.3); GLUCOSE,RANDOM 81 mg/dL (74-106); SGOT/AST 24 U/L (15-37); SGPT/ALT 32 U/L (12-78); TOT PROT 6.5 g/dl (6.4-8.2)
[2017-06-03 12:36] LABS: URINE LEUK ESTERASE Negative (NEGATIVE)
[2017-06-03] MEDS: GABAPENTIN 300 MG CAPSULE (FP) PO SCH (14:12)
--- NOTE | 2017-06-03 15:54 | PN ---
[facility] CIWA - CIWA Score Nausea/Vomitin-Mild Nausea/No Vomiting Muscle Tremors: 3 Anxiety: 4-Mod. Anxious/Guarded Agitation: 4-Moderately Restless Paroxysmal Sweats: 3 Orientation: 0-Oriented Tacttile Disturbances: 1-Very Mild Itch/Numbness Auditory Disturbances: 0-None Visual Disturbances: 0-None Headache: 1-Very Mild CIWA-Ar Total Score: 17 BHS Progress Note (SOAP) Subjective: Tremor, sweating, interrupted sleep, muscle spasm, back pain. Patient requesting to resume home meds: gabapentin 600mg PO daily at 1400 and flexeril 10mg PO daily prn Objective: 06/03/17 15:52 Last Vital Signs Temp Pulse Resp BP Pulse Ox 98.1 F 81 18 113/75 06/03/17 13:20 06/03/17 13:20 06/03/17 13:20 06/03/17 13:20 Laboratory Tests 06/02/17 06/03/17 06/03/17 22:21 08:45 08:45 WBC 4.5 RBC 4.20 Hgb 13.5 Hct 40.1 MCV 95.5 MCH 32.2 MCHC 33.7 RDW 13.8 Plt Count 181 D MPV 7.8 Sodium 144 Potassium 3.9 Chloride 109 H Carbon Dioxide 28 Anion Gap 7 L BUN 19 H Creatinine 1.1 Creat Clearance w eGFR > 60 Random Glucose 81 Calcium 8.2 L Total Bilirubin 0.4 D AST 24 D ALT 32 D Alkaline Phosphatase 82 Total Protein 6.5 Albumin 3.6 Urine Color Lt. yellow Urine Appearance Clear Urine pH 6.0 Ur Specific [place] 1.010 Urine Protein Negative Urine Glucose (UA) Negative Urine Ketones Negative Urine Blood Negative Urine Nitrite Negative Urine Bilirubin Negative Urine Urobilinogen 0.2 Ur Leukocyte Esterase Negative RPR Titer 06/03/17 08:45 WBC RBC Hgb Hct MCV MCH MCHC RDW Plt Count MPV Sodium Potassium Chloride Carbon Dioxide Anion Gap BUN Creatinine Creat Clearance w eGFR Random Glucose Calcium Total Bilirubin AST ALT Alkaline Phosphatase Total Protein Albumin Urine Color Urine Appearance Urine pH Ur Specific [place] Urine Protein Urine Glucose (UA) Urine Ketones Urine Blood Urine Nitrite Urine Bilirubin Urine Urobilinogen Ur Leukocyte Esterase RPR Titer Nonreactive Labs noted Assessment: 06/03/17 15:53 Withdrawal symptoms Plan: Continue detox Gabapentin and flexeril ordered as per patient request
[2017-06-03] MEDS: CYCLOBENZAPRINE HCL 10 MG TABLET (FP) PO PRN (22:31)
[2017-06-03] MEDS: THIAMINE HCL 100 MG TABLET (FP) PO SCH (22:31)
[2017-06-03] MEDS: ZOLPIDEM TARTRATE 5 MG TABLET PO PRN (22:33)
[2017-06-04] MEDS: chlordiazePOXIDE HCL 25 MG CAPSULE PO SCH ×2 (05:45→10:44)
--- NOTE | 2017-06-04 09:19 | PN ---
S CIWA - CIWA Score Nausea/Vomitin Muscle Tremors: 3 Anxiety: 3 Agitation: 3 Paroxysmal Sweats: 3 Orientation: 0-Oriented Tacttile Disturbances: 1-Very Mild Itch/Numbness Auditory Disturbances: 0-None Visual Disturbances: 0-None Headache: 1-Very Mild CIWA-Ar Total Score: 17 S Progress Note (SOAP) Subjective: nausea, sweats, interruptedd sleep, anxeity, tremors Objective: 06/04/17 09:18 Vital Signs - 8 hr 06/04/17 06/04/17 04:13 06:33 Temperature 96.9 F L Pulse Rate 70 Respiratory 18 16 Rate Blood Pressure 98/68 Laboratory Tests 06/02/17 06/03/17 06/03/17 22:21 08:45 08:45 WBC 4.5 RBC 4.20 Hgb 13.5 Hct 40.1 MCV 95.5 MCH 32.2 MCHC 33.7 RDW 13.8 Plt Count 181 D MPV 7.8 Sodium 144 Potassium 3.9 Chloride 109 H Carbon Dioxide 28 Anion Gap 7 L BUN 19 H Creatinine 1.1 Creat Clearance w eGFR > 60 Random Glucose 81 Calcium 8.2 L Total Bilirubin 0.4 D AST 24 D ALT 32 D Alkaline Phosphatase 82 Total Protein 6.5 Albumin 3.6 Urine Color Lt. yellow Urine Appearance Clear Urine pH 6.0 Ur Specific [place] 1.010 Urine Protein Negative Urine Glucose (UA) Negative Urine Ketones Negative Urine Blood Negative Urine Nitrite Negative Urine Bilirubin Negative Urine Urobilinogen 0.2 Ur Leukocyte Esterase Negative RPR Titer 06/03/17 08:45 WBC RBC Hgb Hct MCV MCH MCHC RDW Plt Count MPV Sodium Potassium Chloride Carbon Dioxide Anion Gap BUN Creatinine Creat Clearance w eGFR Random Glucose Calcium Total Bilirubin AST ALT Alkaline Phosphatase Total Protein Albumin Urine Color Urine Appearance Urine pH Ur Specific [place] Urine Protein Urine Glucose (UA) Urine Ketones Urine Blood Urine Nitrite Urine Bilirubin Urine Urobilinogen Ur Leukocyte Esterase RPR Titer Nonreactive Assessment: 06/04/17 09:18 withdrawal sx, cont detox, fluids, encourage ambulation
[2017-06-04] MEDS: SERTRALINE HCL 50 MG TABLET (FP) PO SCH (10:44)
[2017-06-04] MEDS: PRENATAL VITAMINS W/ FOLIC ACID TABLET (FP) PO SCH (10:44)
[2017-06-04] MEDS: NICOTINE 21 MG/24 HOURS TOPICAL PATCH TD SCH (10:44)
[2017-06-04] MEDS: GABAPENTIN 300 MG CAPSULE (FP) PO SCH (10:44)
[2017-06-04] MEDS: OLANZapine 5 MG TABLET PO SCH (10:44)
[2017-06-04] MEDS: chlordiazePOXIDE 5 MG CAPSULE PO SCH ×2 (17:13→22:18)
[2017-06-04] MEDS: ZOLPIDEM TARTRATE 5 MG TABLET PO PRN (22:18)
[2017-06-04] MEDS: THIAMINE HCL 100 MG TABLET (FP) PO SCH (22:18)
[2017-06-04] MEDS: CYCLOBENZAPRINE HCL 10 MG TABLET (FP) PO PRN (22:20)
[2017-06-05] MEDS: chlordiazePOXIDE 5 MG CAPSULE PO SCH ×2 (05:34→10:29)
[2017-06-05] MEDS: IBUPROFEN 400 MG TABLET (FP) PO PRN ×2 (05:35→14:45)
[2017-06-05] MEDS: GABAPENTIN 300 MG CAPSULE (FP) PO SCH (10:29)
[2017-06-05] MEDS: PRENATAL VITAMINS W/ FOLIC ACID TABLET (FP) PO SCH (10:29)
[2017-06-05] MEDS: NICOTINE 21 MG/24 HOURS TOPICAL PATCH TD SCH (10:29)
[2017-06-05] MEDS: OLANZapine 5 MG TABLET PO SCH (10:29)
[2017-06-05] MEDS: SERTRALINE HCL 50 MG TABLET (FP) PO SCH (10:29)
[2017-06-05] MEDS: CYCLOBENZAPRINE HCL 10 MG TABLET (FP) PO PRN (14:45)
--- NOTE | 2017-06-05 15:25 | PN ---
[facility] Progress Note (SOAP) Subjective: Tremors, Nausea, Diarrhea, Sweating, Body Aches. Objective: PT. A & O X 3, OBSERVED AMBULATING ON UNIT. NO ACUTE DISTRESS. 06/05/17 15:24 Vital Signs Temperature 98.4 F 06/05/17 13:44 Pulse Rate 86 06/05/17 13:44 Respiratory Rate 20 06/05/17 13:44 Blood Pressure 111/75 06/05/17 13:44 O2 Sat by Pulse Oximetry (%) Laboratory Tests 06/02/17 06/03/17 06/03/17 22:21 08:45 08:45 WBC 4.5 RBC 4.20 Hgb 13.5 Hct 40.1 MCV 95.5 MCH 32.2 MCHC 33.7 RDW 13.8 Plt Count 181 D MPV 7.8 Sodium 144 Potassium 3.9 Chloride 109 H Carbon Dioxide 28 Anion Gap 7 L BUN 19 H Creatinine 1.1 Creat Clearance w eGFR > 60 Random Glucose 81 Calcium 8.2 L Total Bilirubin 0.4 D AST 24 D ALT 32 D Alkaline Phosphatase 82 Total Protein 6.5 Albumin 3.6 Urine Color Lt. yellow Urine Appearance Clear Urine pH 6.0 Ur Specific [place] 1.010 Urine Protein Negative Urine Glucose (UA) Negative Urine Ketones Negative Urine Blood Negative Urine Nitrite Negative Urine Bilirubin Negative Urine Urobilinogen 0.2 Ur Leukocyte Esterase Negative RPR Titer 06/03/17 08:45 WBC RBC Hgb Hct MCV MCH MCHC RDW Plt Count MPV Sodium Potassium Chloride Carbon Dioxide Anion Gap BUN Creatinine Creat Clearance w eGFR Random Glucose Calcium Total Bilirubin AST ALT Alkaline Phosphatase Total Protein Albumin Urine Color Urine Appearance Urine pH Ur Specific [place] Urine Protein Urine Glucose (UA) Urine Ketones Urine Blood Urine Nitrite Urine Bilirubin Urine Urobilinogen Ur Leukocyte Esterase RPR Titer Nonreactive LABS NOTED. Assessment: 06/05/17 15:24 WITHDRAWAL SYMPTOMS. Plan: CONTINUE DETOX. PRN IMMODIUM FOR DIARRHEA. INCREASE DAILY PO FLUID INTAKE.
[2017-06-05] MEDS: chlordiazePOXIDE HCL 10 MG CAPSULE PO SCH ×2 (17:03→22:21)
[2017-06-05] MEDS: ZOLPIDEM TARTRATE 5 MG TABLET PO PRN (22:20)
[2017-06-05] MEDS: THIAMINE HCL 100 MG TABLET (FP) PO SCH (22:21)
[2017-06-06] MEDS: IBUPROFEN 400 MG TABLET (FP) PO PRN (05:43)
[2017-06-06] MEDS: CYCLOBENZAPRINE HCL 10 MG TABLET (FP) PO PRN (05:43)
[2017-06-06] MEDS: chlordiazePOXIDE HCL 10 MG CAPSULE PO SCH (05:43)
[2017-06-06 06:08] VITALS: BP 107/73; PULSE 75; TEMP 97.4
--- NOTE | 2017-06-06 14:53 | DS ---
[facility] Detox Discharge Summary Admission Date: 06/02/17 Discharge Date: 06/06/17 - History Present History: Alcohol Dependence Additional Comments: PATIENT [facility] ([facility]) FOR AFTERCARE. PATIENT WAS DISCHARGED FROM DETOX UNIT IN STABLE MEDICAL CONDITION. Pertinent Past History: Asthma (during childhood), Depression, Bipolar Disorder, Nicotine Dependence, GERD, history of Cervical Spine Trauma. - Physical Exam Results Vital Signs: Vital Signs Temperature 97.4 F L 06/06/17 06:08 Pulse Rate 75 06/06/17 06:08 Respiratory Rate 16 06/06/17 06:08 Blood Pressure 107/73 06/06/17 06:08 O2 Sat by Pulse Oximetry (%) Pertinent Admission Physical Exam Findings: WITHDRAWAL SYMPTOMS. Laboratory Tests 06/02/17 06/03/17 06/03/17 22:21 08:45 08:45 WBC 4.5 RBC 4.20 Hgb 13.5 Hct 40.1 MCV 95.5 MCH 32.2 MCHC 33.7 RDW 13.8 Plt Count 181 D MPV 7.8 Sodium 144 Potassium 3.9 Chloride 109 H Carbon Dioxide 28 Anion Gap 7 L BUN 19 H Creatinine 1.1 Creat Clearance w eGFR > 60 Random Glucose 81 Calcium 8.2 L Total Bilirubin 0.4 D AST 24 D ALT 32 D Alkaline Phosphatase 82 Total Protein 6.5 Albumin 3.6 Urine Color Lt. yellow Urine Appearance Clear Urine pH 6.0 Ur Specific [place] 1.010 Urine Protein Negative Urine Glucose (UA) Negative Urine Ketones Negative Urine Blood Negative Urine Nitrite Negative Urine Bilirubin Negative Urine Urobilinogen 0.2 Ur Leukocyte Esterase Negative RPR Titer 06/03/17 08:45 WBC RBC Hgb Hct MCV MCH MCHC RDW Plt Count MPV Sodium Potassium Chloride Carbon Dioxide Anion Gap BUN Creatinine Creat Clearance w eGFR Random Glucose Calcium Total Bilirubin AST ALT Alkaline Phosphatase Total Protein Albumin Urine Color Urine Appearance Urine pH Ur Specific [place] Urine Protein Urine Glucose (UA) Urine Ketones Urine Blood Urine Nitrite Urine Bilirubin Urine Urobilinogen Ur Leukocyte Esterase RPR Titer Nonreactive LABS NOTED. - Treatment Hospital Course: Detox Protocol Followed, Detoxed Safely, Responded well, Discharged Condition Good Patient has Accepted a Rehab Referral to: PT GOING TO [facility] ([facility]). - Medication Discharge Medications: Ambulatory Orders Cyclobenzaprine HCl [Flexeril 10 mg] 10 mg PO BID PRN 06/02/17 Gabapentin [Neurontin] 600 mg PO TID 06/02/17 Olanzapine [Zyprexa -] 5 mg PO DAILY 06/02/17 Pantoprazole Sodium [Protonix -] 20 mg PO DAILY 06/02/17 Sertraline HCl [Zoloft -] 50 mg PO DAILY 06/02/17 - Diagnosis (1) Alcohol dependence with uncomplicated withdrawal Status: Acute (2) Substance induced mood disorder Status: Acute (3) Substance-induced sleep disorder Status: Acute (4) Asthma Status: Chronic Qualifiers: Asthma severity: unspecified severity Asthma persistence: unspecified Asthma complication type: uncomplicated Qualified Code(s): J45.909 - Unspecified asthma, uncomplicated (5) Depression (emotion) Status: Chronic Qualifiers: Depression Type: dysthymia Qualified Code(s): F34.1 - Dysthymic disorder (6) GERD (gastroesophageal reflux disease) Status: Chronic Qualifiers: Esophagitis presence: without esophagitis Qualified Code(s): K21.9 - Gastro -esophageal reflux disease without esophagitis (7) Insomnia Status: Chronic Qualifiers: Insomnia type: unspecified Qualified Code(s): G47.00 - Insomnia, unspecified (8) Nicotine dependence Status: Chronic Qualifiers: Nicotine product type: cigarettes Substance use status: in withdrawal Qualified Code(s): F17.213 - Nicotine dependence, cigarettes, with withdrawal (9) Bipolar disorder Status: Suspected Qualifiers: Active/Remission status: remission status unspecified Qualified Code(s): F31.9 - Bipolar disorder, unspecified - AMA Did Patient Leave Against Medical Advice: No
== END 2017-06-06 09:10 | disposition home or self-care (01) | DRG 775 ==
LOC: YASAS 14:13 → Y3N 17:23
PROVIDERS: ADMIT Internal Medicine; ATTEND Internal Medicine
PROC: HZ2ZZZZ Detoxification Services for Substance Abuse Treatment (ICD-10-PCS; principal; 2017-06-02)
DX: F10.230 Alcohol dependence with withdrawal, uncomplicated (principal); F17.213 Nicotine dependence, cigarettes, with withdrawal; F19.24 Other psychoactive substance dependence with psychoactive substance-induced mood disorder; F19.282 Other psychoactive substance dependence with psychoactive substance-induced sleep disorder; F34.1 Dysthymic disorder; F31.9 Bipolar disorder, unspecified; G47.00 Insomnia, unspecified; K21.9 Gastro-esophageal reflux disease without esophagitis; J45.909 Unspecified asthma, uncomplicated
CPT/HCPCS: 36415; 80053; 81003; 85027; 86593; 93005; 93010

== ENCOUNTER 2017-11-12 10:02 | Day surgery (SDC) | payer OTHER ==
[2017-11-12 10:32] VITALS: BMI 21.4
[2017-11-12] MEDS ORDERED: PROPOFOL 20 ML ONE ×3 (10:39)
[2017-11-12 10:44] VITALS: TEMP 98.2
[2017-11-12 12:10] VITALS: BP 107/80; PULSE 69
--- NOTE | 2017-11-13 11:57 | PATH ---
Surgical Pathology Report Patient Name: FELY WILKS [facility]. Rec. #: [id number] /Age/Gender: 1990 (Age: 27) / M Account: [id number] Location: [facility]-ENDOSCOPY Taken: 11/12/2017 Received: 11/12/2017 Reported: 11/13/2017 Physicians: Aj Salinas M.D. Specimen(s) Received A: BX DUODENUM B: BX ANTRUM Clinical History GERD Postoperative diagnosis: Rule out celiac, gastritis, rule out H. Pylori Final Diagnosis A. DUODENUM, BIOPSY: DUODENAL MUCOSA WITHOUT SIGNIFICANT PATHOLOGIC FINDINGS. NO FEATURES OF CELIAC DISEASE IDENTIFIED. B. STOMACH, ANTRUM, BIOPSY: GASTRIC ANTRAL MUCOSA WITH MILD CHRONIC GASTRITIS. IMMUNOHISTOCHEMICAL STAIN FOR H. PYLORI IS NEGATIVE. Electronically Signed Tomeka Denton M.D. Gross Description A. Received in formalin, labeled "duodenum" are 2 coker, irregular portions of soft tissue averaging 0.5 cm. in greatest dimension. The specimens are submitted in toto in one cassette. B. Received in formalin, labeled "antrum" are 2 coker, irregular portions of soft tissue averaging 0.3 cm. in greatest dimension. The specimens are submitted in toto in one cassette. 11/12/201711/12/2017
== END 2017-11-12 12:30 | disposition home or self-care (01) ==
LOC: FASU-ENDO 10:02
PROVIDERS: ATTEND Internal Medicine Gastroenterology
PROC: 0DB98ZX Excision of Duodenum, Via Natural or Artificial Opening Endoscopic, Diagnostic (ICD-10-PCS; principal; 2017-11-12 11:22)
PROC: 0DB68ZX Excision of Stomach, Via Natural or Artificial Opening Endoscopic, Diagnostic (ICD-10-PCS; 2017-11-12 11:22)
DX: K29.50 Unspecified chronic gastritis without bleeding (principal); R10.13 Epigastric pain
CPT/HCPCS: 88305-TC; 88342-TC

== ENCOUNTER 2018-08-28 15:59 | Inpatient (IN) | payer OTHER ==
[2018-08-28 17:21] VITALS: BMI 21.1
--- NOTE | 2018-08-28 20:31 | HP ---
CIWA Score Nausea/Vomitin Muscle Tremors: 3 Anxiety: 2 Agitation: 2 Paroxysmal Sweats: 2 Orientation: 0-Oriented Tacttile Disturbances: 0-None Auditory Disturbances: 0-None Visual Disturbances: 1-Very Mild Sensitivity Headache: 0-None Present CIWA-Ar Total Score: 13 - Admission Criteria OASAS Guidelines: Admission for Medically Managed Detox: Requires at least one of the followin. CIWA greater than 12 2. Seizures within the past 24 hours 3. Delirium tremens within the past 24 hours 4. Hallucinations within the past 24 hours 5. Acute intervention needed for co occurring medical disorder 6. Acute intervention needed for co occurring psychiatric disorder 7. Severe withdrawal that cannot be handled at a lower level of care (continued vomiting, continued diarrhea, abnormal vital signs) requiring intravenous medication and/or fluids 8. Patient presents the following: CIWA greater than 12 Admission Criteria Met: Admission criteria met Admission ROS [facility] Chief Complaint: " I was sent by the hospital here" Allergies/Adverse Reactions: Allergies Allergy/AdvReac Type Severity Reaction Status Date / Time lactose Allergy Verified 08/28/18 19:25 No Known Drug Allergies Allergy Verified 08/28/18 19:25 tomato Allergy Verified 08/28/18 19:26 SHELLFISH Allergy Severe Hives Uncoded 08/28/18 19:25 LACTOSE INTOLERANCE Allergy Uncoded 08/28/18 19:25 History of Present Illness: 27 yo male with hx of nicotine and alcohol dependence is here seeking detox, d/ t withdrawal symptoms. Patient reports he was referred by [facility] after he was evaluated overnight. Patient reports he was admitted to the Psych at [facility] 08/02/18 -08/15/18 suicide attempt. PMHX: GERD, chronic back pain. Psych: anxiety, bipolar, depression. Denies suicidal / homicidal ideation at this time. Denies hx seizures, reports hx of blackouts when drinking alcohol and taking prescribed meds Exam Limitations: No Limitations - Ebola screening Have you traveled outside of the country in the last 21 days: No Have you had contact with anyone from an Ebola affected area: No Have you been sick,other than usual withdrawal symptoms: No Do you have a fever: No - Review of Systems Constitutional: Loss of Appetite, Changes in sleep, Other (weight gain 12lbs) EENT: reports: Dental Problems (from caries) Respiratory: reports: SOB with Exertion Cardiac: reports: No Symptoms Reported GI: reports: Diarrhea (x 2 weeks), Nausea, Poor Appetite, Poor Fluid Intake : reports: No Symptoms Reported Musculoskeletal: reports: See HPI, Back Pain Integumentary: reports: No Symptoms Reported Neuro: reports: Weakness, Dizziness Endocrine: reports: Increased Thirst Hematology: reports: No Symptoms Reported Psychiatric: reports: Mood/Affect Appropiate, Orientated x3, Anxious Other Systems: Reviewed and Negative Patient History - Patient Medical History Hx Anemia: No Hx Asthma: Yes (as a child) Hx Chronic Obstructive Pulmonary Disease (COPD): No Hx Cancer: No Hx Cardiac Disorders: No Hx Congestive Heart Failure: No Hx Hypertension: No Hx Hypercholesterolemia: No Hx Pacemaker: No HX Cerebrovascular Accident: No Hx Seizures: No Hx Dementia: No Hx Diabetes: No Hx Gastrointestinal Disorders: Yes (ACID REFLUX) Hx Liver Disease: No Hx Genitourinary Disorders: No Hx Sexually Transmitted Disorders: No Hx Renal Disease (ESRD): No Hx Thyroid Disease: No Hx Human Immunodeficiency Virus (HIV): No Hx Hepatitis C: No Hx Depression: Yes Hx Suicide Attempt: Yes (attempted 7x, last attempt 08/02/18) Hx Bipolar Disorder: Yes Hx Schizophrenia: No - Patient Surgical History Past Surgical History: No Hx Neurologic Surgery: No Hx Cataract Extraction: No Hx Cardiac Surgery: No Hx Lung Surgery: No Hx Breast Surgery: No Hx Breast Biopsy: No Hx Abdominal Surgery: No Hx Appendectomy: No Hx Cholecystectomy: No Hx Genitourinary Surgery: No Hx Section: No Hx Orthopedic Surgery: No Anesthesia Reaction: No - PPD History Previous Implant?: No Documented Results: Negative w/proof Date: 07/31/16 Results: 0 MM PPD to be Administered?: Yes - Smoking Cessation Smoking history: Current every day smoker Have you smoked in the past 12 months: Yes Aproximately how many cigarettes per day: 10 Cigars Per Day: 0 Hx Chewing Tobacco Use: No Initiated information on smoking cessation: Yes 'Breaking Loose' booklet given: 08/28/18 - Substance & Tx. History Hx Alcohol Use: Yes Hx Substance Use: Yes Substance Use Type: Alcohol Hx Substance Use Treatment: Yes ([facility] May 2018) - Substances Abused Alcohol Route: Oral Frequency: Daily Amount used: LIQUOR-1 PINT, BEER- 3 (40oz) Age of first use: 15 Date of Last Use: 08/27/18 Family Disease History - Family Disease History Family Disease History: Diabetes: Grandparent, Other: Father (ESTRANGED), Mother (Cocaine,Alcohol, Depression), Brother (Alcohol) Admission Physical Exam [facility] - Vital Signs Vital Signs: Vital Signs - 24 hr 08/28/18 17:19 Temperature 97.7 F Pulse Rate 100 H Respiratory 18 Rate Blood Pressure 112/70 - Physical General Appearance: Yes: Appropriately Dressed, Thin, Tremorous, Anxious HEENTM: Yes: EOMI, Hearing grossly Normal, Normal ENT Inspection, Normocephalic , Normal Voice, NITISH, Pharynx Normal, Tm's normal Respiratory: Yes: Chest Non-Tender, Lungs Clear, Normal Breath Sounds, No Respiratory Distress, No Accessory Muscle Use Neck: Yes: Within Normal Limits Breast: Yes: Breast Exam Deferred Cardiology: Yes: Regular Rhythm, Tachycardia Abdominal: Yes: Normal Bowel Sounds, Non Tender, Flat, Soft Genitourinary: Yes: Within Normal Limits Back: Yes: Normal Inspection Musculoskeletal: Yes: full range of Motion, Gait Steady, Pelvis Stable, Back pain Extremities: Yes: Normal Capillary Refill, Normal Inspection, Normal Range of Motion, Non-Tender 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: 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 NML intact, Fully Oriented, Alert, Motor Strength 5/5, Depressed Affect Integumentary: Yes: Normal Color, Warm, Moist Lymphatic: Yes: Within Normal Limits - Diagnostic (1) Chronic back pain Current Visit: Yes Status: Chronic Qualifiers: Back pain location: low back pain Back pain laterality: bilateral Sciatica presence: without sciatica Qualified Code(s): M54.5 - Low back pain; G89.29 - Other chronic pain (2) Alcohol dependence with uncomplicated withdrawal Current Visit: Yes Status: Acute (3) Asthma Current Visit: Yes Status: Chronic Qualifiers: Asthma severity: unspecified severity Asthma persistence: unspecified Asthma complication type: uncomplicated Qualified Code(s): J45.909 - Unspecified asthma, uncomplicated (4) GERD (gastroesophageal reflux disease) Current Visit: Yes Status: Chronic Qualifiers: Esophagitis presence: without esophagitis Qualified Code(s): K21.9 - Gastro -esophageal reflux disease without esophagitis (5) Nicotine dependence Current Visit: Yes Status: Chronic Qualifiers: Nicotine product type: cigarettes Substance use status: in withdrawal Qualified Code(s): F17.213 - Nicotine dependence, cigarettes, with withdrawal Cleared for Admission [facility] - Detox or Rehab [facility] Level of Care: Medically Managed Detox Regimen/Protocol: Librium [facility] Breath Alcohol Content Breath Alcohol Content: 0 Urine Drug Screen - Results Drug Screen Negative: Yes Inpatient Rehab Admission - Rehab Decision to Admit Inpatient rehab admission?: No
[2018-08-28] MEDS ORDERED: NICOTINE POLACRILEX 2 MG GUM BC PRN (20:36)
[2018-08-28] MEDS ORDERED: hydrOXYzine PAMOATE 50 MG CAPSULE (FP) PO PRN (20:36)
[2018-08-28] MEDS ORDERED: MAGNESIUM CITRATE 300 ML BOTTLE PO PRN (20:36)
[2018-08-28] MEDS ORDERED: MAGNESIUM HYDROX 2400MG/30ML ORAL SUSPENSION 30 ML CUP PO PRN (20:36)
[2018-08-28] MEDS ORDERED: P-EPHED 60MG/TRIPROLIDI 2.5MG TABLET PO PRN (20:36)
[2018-08-28] MEDS ORDERED: chlordiazePOXIDE HCL 25 MG CAPSULE PO PRN (20:36)
[2018-08-28] MEDS ORDERED: MAG HYDROX/AL HYDROX/SIMETH 30 ML UNIT-DOSE CUP PO PRN (20:36)
[2018-08-28] MEDS ORDERED: LOPERAMIDE HCL 2 MG CAPSULE PO PRN (20:36)
[2018-08-28] MEDS ORDERED: guaiFENesin/D-METHORPHAN HB 10 ML UNIT-DOSE CUPS PO PRN (20:36)
[2018-08-28] MEDS ORDERED: IBUPROFEN 400 MG TABLET (FP) PO PRN (20:36)
[2018-08-28] MEDS ORDERED: MENTHOL/PHENOL 1 EACH UD MM PRN (20:36)
[2018-08-28] MEDS ORDERED: MELATONIN 5 MG TABLETS PO PRN (22:00)
[2018-08-28] MEDS: THIAMINE HCL 100 MG TABLET (FP) PO SCH (22:33)
[2018-08-28] MEDS: CYCLOBENZAPRINE HCL 10 MG TABLET (FP) PO SCH (22:33)
[2018-08-28] MEDS: chlordiazePOXIDE HCL 25 MG CAPSULE PO SCH (22:33)
[2018-08-28 23:18] LABS: URINE APPEARANCE CLEAR; URINE BILIRUBIN NEGATIVE (<2.0 mg/dL); URINE COLOR YELLOW; URINE GLUCOSE (UA) NEGATIVE (NEGATIVE); URINE KETONE TRACE (NEGATIVE); URINE LEUK ESTERASE NEGATIVE (NEGATIVE); URINE NITRITE NEGATIVE (NEGATIVE); URINE PROTEIN NEGATIVE (NEGATIVE)
[2018-08-29] MEDS: CYCLOBENZAPRINE HCL 10 MG TABLET (FP) PO SCH ×3 (06:28→22:43)
[2018-08-29] MEDS: chlordiazePOXIDE HCL 25 MG CAPSULE PO SCH ×4 (06:28→22:46)
--- NOTE | 2018-08-29 07:39 | CONSULT ---
[facility] Psychiatric Consult - Data Date of interview: 08/29/18 Admission source: [facility] Identifying data: This is a 27 years old male, single, childless, living alone, on PA support, with psychiatric hospitalization history, history of Bipolar Disorder, with history of nicotine and alcohol dependence is here reporting alcohol withdrawal symptoms and seeking detox, Substance Abuse History: Smoking history: Current every day smoker. Have you smoked in the past 12 months: Yes. Aproximately how many cigarettes per day: 10. Cigars Per Day: 0. Hx Chewing Tobacco Use: No. Initiated information on smoking cessation: Yes. 'Breaking Loose' booklet given: 08/28/18. - Substance & Tx. History. Hx Alcohol Use: Yes. Hx Substance Use: Yes. Substance Use Type : Alcohol. Hx Substance Use Treatment: Yes ([facility] May 2018). - Substances Abused. Alcohol. Route: Oral. Frequency: Daily. Amount used : LIQUOR-1 PINT, BEER- 3 (40oz). Age of first use: 15. Date of Last Use: 08/27 Psychiatric Findings - Problem List ([place] 1, 2,3) (1) Alcohol dependence with uncomplicated withdrawal Current Visit: Yes Status: Acute (2) Asthma Current Visit: Yes Status: Chronic Qualifiers: Asthma severity: unspecified severity Asthma persistence: unspecified Asthma complication type: uncomplicated Qualified Code(s): J45.909 - Unspecified asthma, uncomplicated (3) Chronic back pain Current Visit: Yes Status: Chronic Qualifiers: Back pain location: low back pain Back pain laterality: bilateral Sciatica presence: without sciatica Qualified Code(s): M54.5 - Low back pain; G89.29 - Other chronic pain (4) GERD (gastroesophageal reflux disease) Current Visit: Yes Status: Chronic Qualifiers: Esophagitis presence: without esophagitis Qualified Code(s): K21.9 - Gastro -esophageal reflux disease without esophagitis (5) Nicotine dependence Current Visit: Yes Status: Chronic Qualifiers: Nicotine product type: cigarettes Substance use status: in withdrawal Qualified Code(s): F17.213 - Nicotine dependence, cigarettes, with withdrawal (6) Substance induced mood disorder Current Visit: No Status: Acute (7) Substance-induced sleep disorder Current Visit: No Status: Acute (8) History of cervical spine trauma Current Visit: No Status: Chronic (9) Limited mobility Current Visit: No Status: Chronic Comment: right fingers (10) Bipolar disorder Current Visit: No Status: Suspected Qualifiers: Active/Remission status: remission status unspecified Qualified Code(s): F31.9 - Bipolar disorder, unspecified Comment: No symptom elicited.Historical diagnosis.
[2018-08-29 10:37] LABS: HEMATOCRIT 40.8 % (35.4-49); HEMOGLOBIN 14.2 GM/dL (11.7-16.9); MCH 31.2 pg (25.7-33.7); MCHC 34.7 g/dl (32.0-35.9); MEAN CELL VOLUME 89.8 fl (80-96); MEAN PLT VOLUME 8.3 fl (7.5-11.1); PLATELET COUNT 274 K/MM3 (134-434); RBC 4.55 M/mm3 (4.00-5.60); WHITE BLOOD COUNT 5.1 K/mm3 (4.0-10.0)
[2018-08-29 10:39] LABS: ALK PHOS 71 U/L (45-117); ANION GAP 6 MMOL/L (8-16); BILIRUBIN,TOTAL 0.5 mg/dL (0.2-1); BLOOD UREA NITROGEN 18 mg/dL (7-18); CALCIUM 9.2 mg/dL (8.5-10.1); CHLORIDE 108 mmol/L (98-107); CO2 28 mmol/L (21-32); CREATININE 1.2 mg/dL (0.55-1.3); GLUCOSE,RANDOM 77 mg/dL (74-106); POTASSIUM 3.7 mmol/L (3.5-5.1); SGOT/AST 10 U/L (15-37); SGPT/ALT 27 U/L (13-61); SODIUM 141 mmol/L (136-145); TOT PROT 7.1 g/dl (6.4-8.2)
[2018-08-29] MEDS: PRENATAL VITAMINS W/ FOLIC ACID TABLET (FP) PO SCH (10:39)
[2018-08-29] MEDS: NICOTINE 14 MG/24 HOURS TOPICAL PATCH TD SCH (10:39)
[2018-08-29] MEDS: risperiDONE 2 MG TABLET PO SCH ×2 (10:41→22:43)
[2018-08-29] MEDS ORDERED: TRIMETHOBENZAMIDE HCL 300 MG CAPSULE PO PRN (14:06)
--- NOTE | 2018-08-29 14:46 | PN ---
[facility] CIWA - CIWA Score Nausea/Vomitin-No Nausea/No Vomiting Muscle Tremors: 3 Anxiety: 1-Mildly Anxious Agitation: 0-Normal Activity Paroxysmal Sweats: 3 Orientation: 0-Oriented Tacttile Disturbances: 2-Mild Itch/Numbness/Burn Auditory Disturbances: 0-None Visual Disturbances: 2-Mild Sensitivity Headache: 0-None Present CIWA-Ar Total Score: 11 S Progress Note (SOAP) Subjective: Nausea, Body Aches, Interrupted Sleep, Fatigue, Tremors. Objective: PATIENT A & O X 3. IN NO ACUTE DISTRESS. RESULTS OF ADMISSION ECG NOTED: (RIGHT BUNDLE BRANCH BLOCK). PATIENT DENIES CHEST AND ARM PAIN AND DIZZINESS. PATIENT DENIES KNOWN HISTORY OF CARDIOVASCULAR DISEASE. PATIENT ADVISED TO FOLLOW-UP WITH [facility] AFTER DISCHARGE FROM DETOX UNIT FOR FURTHER MEDICAL EVALUATION. PATIENT VERBALIZED UNDERSTANDING OF RECOMMENDATION. 08/29/18 14:44 Vital Signs Temperature 96.8 F L 08/29/18 13:11 Pulse Rate 122 H 08/29/18 13:11 Respiratory Rate 18 08/29/18 13:11 Blood Pressure 96/61 08/29/18 13:11 O2 Sat by Pulse Oximetry (%) Laboratory Tests 08/28/18 08/29/18 08/29/18 21:00 07:00 07:00 WBC 5.1 RBC 4.55 Hgb 14.2 Hct 40.8 MCV 89.8 MCH 31.2 MCHC 34.7 RDW 15.0 Plt Count 274 D MPV 8.3 Sodium 141 Potassium 3.7 Chloride 108 H Carbon Dioxide 28 Anion Gap 6 L BUN 18 Creatinine 1.2 Creat Clearance w eGFR > 60 Random Glucose 77 Calcium 9.2 Total Bilirubin 0.5 AST 10 L ALT 27 Alkaline Phosphatase 71 Total Protein 7.1 Albumin 4.0 Urine Color Yellow Urine Appearance Clear Urine pH 6.0 Ur Specific [place] 1.024 Urine Protein Negative Urine Glucose (UA) Negative Urine Ketones Trace H Urine Blood Negative Urine Nitrite Negative Urine Bilirubin Negative Urine Urobilinogen 2.0 Ur Leukocyte Esterase Negative RPR Titer 08/29/18 07:00 WBC RBC Hgb Hct MCV MCH MCHC RDW Plt Count MPV Sodium Potassium Chloride Carbon Dioxide Anion Gap BUN Creatinine Creat Clearance w eGFR Random Glucose Calcium Total Bilirubin AST ALT Alkaline Phosphatase Total Protein Albumin Urine Color Urine Appearance Urine pH Ur Specific [place] Urine Protein Urine Glucose (UA) Urine Ketones Urine Blood Urine Nitrite Urine Bilirubin Urine Urobilinogen Ur Leukocyte Esterase RPR Titer Nonreactive LABS NOTED. 08/29/18 14:44 08/29/18 14:48 Assessment: 08/29/18 14:47 WITHDRAWAL SYMPTOMS. Plan: CONTINUE DETOX. FLEXERIL PO PRN FOR BODY ACHES / MUSCLE SPASMS. PRN TIGAN PO FOR NAUSEA. TOPICAL LIDODERM PATCH FOR LOWER BACK PAIN.
[2018-08-29] MEDS: GABAPENTIN 400 MG CAPSULE (FP) PO SCH ×2 (14:50→22:43)
[2018-08-29] MEDS: LIDOCAINE 5% TOPICAL PATCH TP SCH (14:51)
--- NOTE | 2018-08-29 16:58 | EKG ---
Test Reason : Blood Pressure : / mmHG Vent. Rate : 069 BPM Atrial Rate : 069 BPM P-R Int : 126 ms QRS Dur : 098 ms QT Int : 360 ms P-R-T Axes : 045 -21 028 degrees QTc Int : 385 ms NORMAL SINUS RHYTHM INCOMPLETE RIGHT BUNDLE BRANCH BLOCK BORDERLINE ECG WHEN COMPARED WITH ECG OF 02-JUN-2017 19:47, QT HAS SHORTENED Confirmed by KAREN CHRISTIE MD ([id number]) on 08/29/2018 4:57:59 PM Referred By: Confirmed By:KAREN CHRISTIE MD
[2018-08-29] MEDS: MIRTAZAPINE 15 MG TABLET (FP) PO SCH (22:43)
[2018-08-29] MEDS: QUEtiapine FUMARATE 50 MG TABLET PO SCH (22:43)
[2018-08-29] MEDS: LIDOCAINE PATCH REMOVAL MC SCH (22:44)
[2018-08-29] MEDS: THIAMINE HCL 100 MG TABLET (FP) PO SCH (22:44)
[2018-08-30] MEDS: CYCLOBENZAPRINE HCL 10 MG TABLET (FP) PO SCH ×3 (06:52→22:49)
[2018-08-30] MEDS: chlordiazePOXIDE HCL 25 MG CAPSULE PO SCH ×3 (06:52→20:05)
[2018-08-30] MEDS: GABAPENTIN 400 MG CAPSULE (FP) PO SCH ×3 (06:53→22:41)
--- NOTE | 2018-08-30 09:08 | PN ---
S CIWA - CIWA Score Nausea/Vomitin Muscle Tremors: 2 Anxiety: 2 Agitation: 2 Paroxysmal Sweats: 1-Minimal Palms Moist Orientation: 0-Oriented Tacttile Disturbances: 1-Very Mild Itch/Numbness Auditory Disturbances: 1-Very Mild Visual Disturbances: 0-None Headache: 2-Mild CIWA-Ar Total Score: 13 [facility] Progress Note (SOAP) Subjective: alert,irritable,anxious,interrupted sleep,tremor Objective: 08/30/18 09:07 Vital Signs Temperature 97.7 F 08/30/18 06:00 Pulse Rate 85 08/30/18 06:00 Respiratory Rate 18 08/30/18 06:00 Blood Pressure 110/60 08/30/18 06:00 O2 Sat by Pulse Oximetry (%) 08/30/18 09:07 Laboratory Last Values WBC 5.1 K/mm3 (4.0-10.0) 08/29/18 07:00 RBC 4.55 M/mm3 (4.00-5.60) 08/29/18 07:00 Hgb 14.2 GM/dL (11.7-16.9) 08/29/18 07:00 Hct 40.8 % (35.4-49) 08/29/18 07:00 MCV 89.8 fl (80-96) 08/29/18 07:00 MCH 31.2 pg (25.7-33.7) 08/29/18 07:00 MCHC 34.7 g/dl (32.0-35.9) 08/29/18 07:00 RDW 15.0 % (11.9-15.9) 08/29/18 07:00 Plt Count 274 K/MM3 (134-434) D 08/29/18 07:00 MPV 8.3 fl (7.5-11.1) 08/29/18 07:00 Sodium 141 mmol/L (136-145) 08/29/18 07:00 Potassium 3.7 mmol/L (3.5-5.1) 08/29/18 07:00 Chloride 108 mmol/L (98-107) H 08/29/18 07:00 Carbon Dioxide 28 mmol/L (21-32) 08/29/18 07:00 Anion Gap 6 MMOL/L (8-16) L 08/29/18 07:00 BUN 18 mg/dL (7-18) 08/29/18 07:00 Creatinine 1.2 mg/dL (0.55-1.3) 08/29/18 07:00 Creat Clearance w eGFR > 60 (>60) 08/29/18 07:00 Random Glucose 77 mg/dL (74-106) 08/29/18 07:00 Calcium 9.2 mg/dL (8.5-10.1) 08/29/18 07:00 Total Bilirubin 0.5 mg/dL (0.2-1) 08/29/18 07:00 AST 10 U/L (15-37) L 08/29/18 07:00 ALT 27 U/L (13-61) 08/29/18 07:00 Alkaline Phosphatase 71 U/L (45-117) 08/29/18 07:00 Total Protein 7.1 g/dl (6.4-8.2) 08/29/18 07:00 Albumin 4.0 g/dl (3.4-5.0) 08/29/18 07:00 Urine Color Yellow 08/28/18 21:00 Urine Appearance Clear 08/28/18 21:00 Urine pH 6.0 (5.0-8.0) 08/28/18 21:00 Ur Specific [place] 1.024 (1.010-1.035) 08/28/18 21:00 Urine Protein Negative (NEGATIVE) 08/28/18 21:00 Urine Glucose (UA) Negative (NEGATIVE) 08/28/18 21:00 Urine Ketones Trace (NEGATIVE) H 08/28/18 21:00 Urine Blood Negative (NEGATIVE) 08/28/18 21:00 Urine Nitrite Negative (NEGATIVE) 08/28/18 21:00 Urine Bilirubin Negative (<2.0 mg/dL) 08/28/18 21:00 Urine Urobilinogen 2.0 mg/dL (0.2-1.0) 08/28/18 21:00 Ur Leukocyte Esterase Negative (NEGATIVE) 08/28/18 21:00 RPR Titer Nonreactive (NONREACTIVE) 08/29/18 07:00 Assessment: 08/30/18 09:08 withdrawal ymptom Plan: continue detox
[2018-08-30] MEDS: LIDOCAINE 5% TOPICAL PATCH TP SCH (10:26)
[2018-08-30] MEDS: risperiDONE 2 MG TABLET PO SCH ×2 (10:26→22:43)
[2018-08-30] MEDS: NICOTINE 14 MG/24 HOURS TOPICAL PATCH TD SCH (10:26)
[2018-08-30] MEDS: PRENATAL VITAMINS W/ FOLIC ACID TABLET (FP) PO SCH (10:26)
[2018-08-30] MEDS: chlordiazePOXIDE 5 MG CAPSULE PO SCH (22:41)
[2018-08-30] MEDS: MIRTAZAPINE 15 MG TABLET (FP) PO SCH (22:42)
[2018-08-30] MEDS: THIAMINE HCL 100 MG TABLET (FP) PO SCH (22:43)
[2018-08-30] MEDS: QUEtiapine FUMARATE 50 MG TABLET PO SCH (22:43)
[2018-08-30] MEDS: LIDOCAINE PATCH REMOVAL MC SCH (22:46)
[2018-08-31] MEDS: CYCLOBENZAPRINE HCL 10 MG TABLET (FP) PO SCH ×3 (06:30→21:22)
[2018-08-31] MEDS: GABAPENTIN 400 MG CAPSULE (FP) PO SCH ×3 (06:30→21:21)
[2018-08-31] MEDS: chlordiazePOXIDE 5 MG CAPSULE PO SCH ×3 (06:30→17:49)
[2018-08-31] MEDS: NICOTINE 14 MG/24 HOURS TOPICAL PATCH TD SCH (10:22)
[2018-08-31] MEDS: LIDOCAINE 5% TOPICAL PATCH TP SCH (10:22)
[2018-08-31] MEDS: PRENATAL VITAMINS W/ FOLIC ACID TABLET (FP) PO SCH (10:23)
[2018-08-31] MEDS: risperiDONE 2 MG TABLET PO SCH ×2 (10:23→21:22)
[2018-08-31] MEDS: ACETAMINOPHEN 325 MG TABLET (FP) PO PRN ×2 (10:25→21:17)
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
[2018-08-31] MEDS: PANTOPRAZOLE 20 MG TABLET (FP) PO SCH ×2 (11:29→21:26)
[2018-08-31] MEDS: MIRTAZAPINE 15 MG TABLET (FP) PO SCH (21:21)
[2018-08-31] MEDS: QUEtiapine FUMARATE 50 MG TABLET PO SCH (21:22)
[2018-08-31] MEDS: THIAMINE HCL 100 MG TABLET (FP) PO SCH (21:22)
[2018-08-31] MEDS: LIDOCAINE PATCH REMOVAL MC SCH (21:22)
[2018-08-31] MEDS: chlordiazePOXIDE HCL 10 MG CAPSULE PO SCH (22:53)
[2018-09-01] MEDS: CYCLOBENZAPRINE HCL 10 MG TABLET (FP) PO SCH (05:59)
[2018-09-01] MEDS: GABAPENTIN 400 MG CAPSULE (FP) PO SCH (05:59)
[2018-09-01] MEDS: chlordiazePOXIDE HCL 10 MG CAPSULE PO SCH (05:59)
[2018-09-01] MEDS: risperiDONE 2 MG TABLET PO SCH (09:04)
[2018-09-01] MEDS: PRENATAL VITAMINS W/ FOLIC ACID TABLET (FP) PO SCH (09:04)
[2018-09-01] MEDS: NICOTINE 14 MG/24 HOURS TOPICAL PATCH TD SCH (09:05)
[2018-09-01] MEDS: PANTOPRAZOLE 20 MG TABLET (FP) PO SCH (09:05)
[2018-09-01] MEDS: ACETAMINOPHEN 325 MG TABLET (FP) PO PRN (09:05)
[2018-09-01 10:33] VITALS: BP 124/75; PULSE 122; TEMP 97.6
--- NOTE | 2018-09-01 12:15 | DS ---
[facility] Detox Discharge Summary Admission Date: 08/28/18 Discharge Date: 09/01/18 - History Present History: Alcohol Dependence Additional Comments: Patient completed detox successfully and is stable for discharge. Patient is A/A /Ox3, in nad, vss, ambulatory. Patient instructed to follow up with PCP within 1 -2 weeks. Patient discharged safely. Pertinent Past History: GERD Chronic back pain Anxiety Bipolar disorder Depression Nicotine dependence Alcohol dependence Asthma, mild intermittent (in childhood), stable - Physical Exam Results Vital Signs: Vital Signs Temperature 97.6 F 09/01/18 10:00 Pulse Rate 122 H 09/01/18 10:00 Respiratory Rate 18 09/01/18 10:00 Blood Pressure 124/75 09/01/18 10:00 O2 Sat by Pulse Oximetry (%) Pertinent Admission Physical Exam Findings: Withdrawal symptoms Laboratory Tests 08/28/18 08/29/18 08/29/18 21:00 07:00 07:00 WBC 5.1 RBC 4.55 Hgb 14.2 Hct 40.8 MCV 89.8 MCH 31.2 MCHC 34.7 RDW 15.0 Plt Count 274 D MPV 8.3 Sodium 141 Potassium 3.7 Chloride 108 H Carbon Dioxide 28 Anion Gap 6 L BUN 18 Creatinine 1.2 Creat Clearance w eGFR > 60 Random Glucose 77 Calcium 9.2 Total Bilirubin 0.5 AST 10 L ALT 27 Alkaline Phosphatase 71 Total Protein 7.1 Albumin 4.0 Urine Color Yellow Urine Appearance Clear Urine pH 6.0 Ur Specific [place] 1.024 Urine Protein Negative Urine Glucose (UA) Negative Urine Ketones Trace H Urine Blood Negative Urine Nitrite Negative Urine Bilirubin Negative Urine Urobilinogen 2.0 Ur Leukocyte Esterase Negative RPR Titer 08/29/18 07:00 WBC RBC Hgb Hct MCV MCH MCHC RDW Plt Count MPV Sodium Potassium Chloride Carbon Dioxide Anion Gap BUN Creatinine Creat Clearance w eGFR Random Glucose Calcium Total Bilirubin AST ALT Alkaline Phosphatase Total Protein Albumin Urine Color Urine Appearance Urine pH Ur Specific [place] Urine Protein Urine Glucose (UA) Urine Ketones Urine Blood Urine Nitrite Urine Bilirubin Urine Urobilinogen Ur Leukocyte Esterase RPR Titer Nonreactive Labs reviewed - Treatment Hospital Course: Detox Protocol Followed, Detoxed Safely, Responded well, Discharged Condition Good - Medication Discharge Medications: Ambulatory Orders Cyclobenzaprine HCl [Flexeril -] 10 mg PO TID 08/28/18 Omeprazole 20 mg PO DAILY 08/28/18 Gabapentin [Neurontin -] 400 mg PO TID #90 capsule 08/29/18 Mirtazapine [Remeron -] 45 mg PO HS #30 tablet 08/29/18 Quetiapine Fumarate [Seroquel -] 50 mg PO HS #30 tablet 08/29/18 Risperidone [Risperdal -] 2 mg PO BID #60 tablet 08/29/18 - Diagnosis (1) Anxiety Status: Chronic (2) Alcohol dependence with uncomplicated withdrawal Status: Acute (3) Asthma Status: Chronic Qualifiers: Asthma severity: unspecified severity Asthma persistence: unspecified Asthma complication type: uncomplicated Qualified Code(s): J45.909 - Unspecified asthma, uncomplicated (4) Chronic back pain Status: Chronic Qualifiers: Back pain location: low back pain Back pain laterality: bilateral Sciatica presence: without sciatica Qualified Code(s): M54.5 - Low back pain; G89.29 - Other chronic pain (5) Depression (emotion) Status: Chronic Qualifiers: Depression Type: dysthymia Qualified Code(s): F34.1 - Dysthymic disorder (6) GERD (gastroesophageal reflux disease) Status: Chronic Qualifiers: Esophagitis presence: without esophagitis Qualified Code(s): K21.9 - Gastro -esophageal reflux disease without esophagitis (7) Nicotine dependence Status: Chronic Qualifiers: Nicotine product type: cigarettes Substance use status: in withdrawal Qualified Code(s): F17.213 - Nicotine dependence, cigarettes, with withdrawal (8) Bipolar disorder Status: Chronic Qualifiers: Active/Remission status: remission status unspecified Qualified Code(s): F31.9 - Bipolar disorder, unspecified - AMA Did Patient Leave Against Medical Advice: No (F/U with PCP within 1-2 weeks)
== END 2018-09-01 09:30 | disposition home or self-care (01) | DRG 775 ==
LOC: YASAS 15:59 → Y6N 17:55
PROVIDERS: ADMIT Surgery; ATTEND Surgery
PROC: HZ2ZZZZ Detoxification Services for Substance Abuse Treatment (ICD-10-PCS; principal; 2018-08-28)
DX: F10.230 Alcohol dependence with withdrawal, uncomplicated (principal); F17.213 Nicotine dependence, cigarettes, with withdrawal; F41.9 Anxiety disorder, unspecified; F34.1 Dysthymic disorder; F19.24 Other psychoactive substance dependence with psychoactive substance-induced mood disorder; F19.282 Other psychoactive substance dependence with psychoactive substance-induced sleep disorder; F31.9 Bipolar disorder, unspecified; J45.909 Unspecified asthma, uncomplicated; M54.5 Low back pain; G89.29 Other chronic pain; K21.9 Gastro-esophageal reflux disease without esophagitis; E73.9 Lactose intolerance, unspecified; R00.0 Tachycardia, unspecified; Z74.09 Other reduced mobility; Z91.013 Allergy to seafood; Z91.5 Personal history of self-harm
CPT/HCPCS: 36415; 80053; 81003; 85027; 86593; 93005; 93010

== ENCOUNTER 2019-05-31 17:09 | Inpatient (IN) | payer OTHER ==
[2019-05-31 18:05] VITALS: BMI 19.5
--- NOTE | 2019-05-31 21:32 | HP ---
CIWA Score Nausea/Vomitin-Mild Nausea/No Vomiting Muscle Tremors: 4-Moderate,w/Arms Extend Anxiety: 1-Mildly Anxious Agitation: 1-Slight > Activity Paroxysmal Sweats: 3 Orientation: 1-Uncertain about Date Tacttile Disturbances: 2-Mild Itch/Numbness/Burn (itch) Auditory Disturbances: 0-None Visual Disturbances: 3-Moderate Sensitivity Headache: 4-Moderately Severe CIWA-Ar Total Score: 20 - Admission Criteria OASAS Guidelines: Admission for Medically Managed Detox: Requires at least one of the followin. CIWA greater than 12 2. Seizures within the past 24 hours 3. Delirium tremens within the past 24 hours 4. Hallucinations within the past 24 hours 5. Acute intervention needed for co occurring medical disorder 6. Acute intervention needed for co occurring psychiatric disorder 7. Severe withdrawal that cannot be handled at a lower level of care (continued vomiting, continued diarrhea, abnormal vital signs) requiring intravenous medication and/or fluids 8. Patient presents the following: Acute intervention needed for co-occurring med or psych disorder ([facility] 24 hours due to withdrawal sx's) Admission Criteria Met: Admission criteria met Admitting History and Physical - Smoking History Smoking history: Current every day smoker Have you smoked in the past 12 months: Yes Aproximately how many cigarettes per day: 10 If you are a former smoker, when did you quit?: 2 weeks ago - Alcohol/Substance Use Hx Alcohol Use: Yes Admission ROS [facility] Chief Complaint: HERE FOR ALCOHOL DETOX Allergies/Adverse Reactions: Allergies Allergy/AdvReac Type Severity Reaction Status Date / Time lactose Allergy Verified 09/05/18 15:23 No Known Drug Allergies Allergy Verified 09/05/18 15:23 tomato Allergy Verified 05/31/19 17:42 SHELLFISH Allergy Severe Hives Uncoded 05/31/19 17:42 LACTOSE INTOLERANCE Allergy Uncoded 05/31/19 17:42 History of Present Illness: HERE FOR ALCOHOL DETOX. CLIENT IS REFERRED BY [facility] FOR ALCOHOL INTOXICATION WITH ONSET OF WITHDRAWAL SX'S. HE WAS STABILIZED AND REFERRED FOR DETOX. PRESENTS WITH DC PAPER. SEE ATTACHED. . KNOWN TO PROGRAM LAST HERE 2018. CLIENT REPORTS BEING CLEAN FOR ABOUT 2 WEEKS BEFORE RELAPSING. HE REPORTS DAILY ALCOHOL INTAKE OF A SIX PACK OF BEER AND SOME VODKA. LAST USE 1 NIGHT AGO. 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 DENIES HX/O SEIZURES, AVH. REPORTS LONGEST CLEAN TIME 8 MONTHS RELAPSING 1 YEAR AGO. LIVES W/ FAMILY, DISABLED, DENIES LEGALS Exam Limitations: No Limitations - Ebola screening Have you traveled outside of the country in the last 21 days: No (N) Have you had contact with anyone from an Ebola affected area: No Do you have a fever: No - Review of Systems Constitutional: Chills, Loss of Appetite, Night Sweats, Changes in sleep EENT: reports: Dental Problems (CRACKED TOOTH PAIN), Other (SORE THROAT) Respiratory: reports: Shortness of Breath Cardiac: reports: No Symptoms Reported GI: reports: Nausea, Poor Appetite, Poor Fluid Intake : reports: No Symptoms Reported Musculoskeletal: reports: Back Pain (CHRONIC), Joint Pain (CHRONIC), Neck Pain ( CHRONIC) Integumentary: reports: No Symptoms Reported Neuro: reports: Headache, Other (BLACK OUTS -LAST 1MONTH AGO) Endocrine: reports: No Symptoms Reported Hematology: reports: No Symptoms Reported Psychiatric: reports: Orientated x3, Agitated (IRRITABLE), Depressed (DENIES SI) Other Systems: Reviewed and Negative Patient History - Patient Medical History Hx Anemia: No Hx Asthma: Yes (as a child) Hx Chronic Obstructive Pulmonary Disease (COPD): No Hx Cancer: No Hx Cardiac Disorders: No Hx Congestive Heart Failure: No Hx Hypertension: No Hx Hypercholesterolemia: No Hx Pacemaker: No HX Cerebrovascular Accident: No Hx Seizures: No Hx Dementia: No Hx Diabetes: No Hx Gastrointestinal Disorders: Yes (ACID REFLUX) Hx Liver Disease: No Hx Genitourinary Disorders: No Hx Sexually Transmitted Disorders: No Hx Renal Disease (ESRD): No Hx Thyroid Disease: No Hx Human Immunodeficiency Virus (HIV): No (negative) Hx Hepatitis C: No Hx Depression: Yes Hx Suicide Attempt: Yes (attempted 7x, last attempt 12/30/18) Hx Bipolar Disorder: Yes Hx Schizophrenia: No Other Medical History: DENIES - Patient Surgical History Past Surgical History: No Hx Neurologic Surgery: No Hx Cataract Extraction: No Hx Cardiac Surgery: No Hx Lung Surgery: No Hx Breast Surgery: No Hx Breast Biopsy: No Hx Abdominal Surgery: No Hx Appendectomy: No Hx Cholecystectomy: No Hx Genitourinary Surgery: No Hx Section: No Hx Orthopedic Surgery: No Anesthesia Reaction: No - PPD History Previous Implant?: Yes Documented Results: Negative w/proof Implanted On Prior [facility] Admission?: Yes Date: 08/30/18 Results: 0 MM PPD to be Administered?: No - Smoking Cessation Smoking history: Current every day smoker Have you smoked in the past 12 months: Yes Aproximately how many cigarettes per day: 20 Cigars Per Day: 0 Hx Chewing Tobacco Use: No Initiated information on smoking cessation: Yes 'Breaking Loose' booklet given: 05/31/19 - Substance & Tx. History Hx Alcohol Use: Yes Hx Substance Use: Yes Substance Use Type: Alcohol Hx Substance Use Treatment: Yes ([facility]) - Substances abused Alcohol Substance route: Oral Frequency: Daily Amount used: 6 (24oz) beers/1 liter of vodka Age of first use: 15 Date of last use: 05/30/19 Admission Physical Exam [facility] - Vital Signs Vital Signs: Vital Signs - 24 hr 05/31/19 05/31/19 17:59 19:52 Temperature 97.1 F L 97.1 F L Pulse Rate 88 88 Respiratory 20 20 Rate Blood Pressure 120/86 120/86 - Physical General Appearance: Yes: Moderate Distress, Tremorous (FELT), Irritable, Anxious HEENTM: Yes: EOMI, Normocephalic, Normal Voice, NITISH, Pharynx Normal, Other ( EXOPHTHALMOS) Respiratory: Yes: Chest Non-Tender, Lungs Clear, Normal Breath Sounds, No Respiratory Distress, No Accessory Muscle Use Neck: Yes: No masses,lesions,Nodules, Supple, Trachea in good position Breast: Yes: Breasts Symetrical Cardiology: Yes: Regular Rhythm, Regular Rate, S1, S2 Abdominal: Yes: Normal Bowel Sounds, Non Tender, Soft Genitourinary: Yes: Within Normal Limits Back: Yes: Normal Inspection Musculoskeletal: Yes: full range of Motion, Gait Steady Extremities: Yes: Normal Capillary Refill, Normal Range of Motion, Non-Tender, Tremors (FELT) 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: Fully Oriented, Alert, Motor Strength 5/5, Depressed Affect ( DENIES SI) Integumentary: Yes: Dry, Warm Lymphatic: Yes: Within Normal Limits - Diagnostic (1) Substance induced mood disorder Status: Chronic (2) Substance-induced sleep disorder Status: Chronic (3) Asthma Status: Chronic Qualifiers: Asthma severity: unspecified severity Asthma persistence: unspecified Asthma complication type: uncomplicated Qualified Code(s): J45.909 - Unspecified asthma, uncomplicated (4) Bipolar disorder Status: Chronic Comment: No symptom elicited.Historical diagnosis. (5) Chronic back pain Status: Chronic Qualifiers: Back pain location: low back pain Back pain laterality: bilateral Sciatica presence: without sciatica Qualified Code(s): M54.5 - Low back pain; G89.29 - Other chronic pain (6) Depression (emotion) Status: Chronic Qualifiers: Depression Type: dysthymia Qualified Code(s): F34.1 - Dysthymic disorder (7) GERD (gastroesophageal reflux disease) Status: Chronic Qualifiers: Esophagitis presence: esophagitis presence not specified Qualified Code(s) : K21.9 - Gastro-esophageal reflux disease without esophagitis (8) Nicotine dependence Status: Chronic Qualifiers: Nicotine product type: cigarettes Substance use status: uncomplicated Qualified Code(s): F17.210 - Nicotine dependence, cigarettes, uncomplicated (9) 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
[2019-05-31] MEDS ORDERED: ONDANSETRON *ODT* 4 MG TABLET SL PRN (21:38)
[2019-05-31] MEDS ORDERED: MENTHOL/PHENOL 1 EACH UD MM PRN (21:38)
[2019-05-31] MEDS ORDERED: ACETAMINOPHEN 325 MG TABLET (FP) PO PRN (21:38)
[2019-05-31] MEDS ORDERED: P-EPHED 60MG/TRIPROLIDI 2.5MG TABLET PO PRN (21:38)
[2019-05-31] MEDS ORDERED: DICYCLOMINE HCL 10 MG CAPSULE PO PRN (21:38)
[2019-05-31] MEDS ORDERED: chlordiazePOXIDE HCL 25 MG CAPSULE PO PRN (21:38)
[2019-05-31] MEDS ORDERED: guaiFENesin 200 MG/10 ML 10 ML UNIT-DOSE CUPS PO PRN (21:38)
[2019-05-31] MEDS ORDERED: MAGNESIUM HYDROX 2400MG/30ML ORAL SUSPENSION 30 ML CUP PO PRN (21:38)
[2019-05-31] MEDS ORDERED: MAGNESIUM CITRATE 300 ML BOTTLE PO PRN (21:38)
[2019-05-31] MEDS ORDERED: MAG HYDROX/AL HYDROX/SIMETH 30 ML UNIT-DOSE CUP PO PRN (21:38)
[2019-05-31] MEDS ORDERED: GABAPENTIN 400 MG CAPSULE (FP) PO SCH (22:00)
[2019-05-31] MEDS: chlordiazePOXIDE HCL 25 MG CAPSULE PO SCH (22:59)
[2019-05-31] MEDS: THIAMINE HCL 100 MG TABLET (FP) PO SCH (22:59)
[2019-05-31] MEDS: GABAPENTIN 300 MG CAPSULE (FP) PO SCH (23:08)
[2019-05-31] MEDS: MELATONIN 5 MG TABLETS PO PRN (23:08)
[2019-06-01] MEDS: chlordiazePOXIDE HCL 25 MG CAPSULE PO SCH ×4 (05:09→22:09)
[2019-06-01] MEDS: GABAPENTIN 300 MG CAPSULE (FP) PO SCH ×3 (05:09→22:06)
[2019-06-01] MEDS: METHOCARBAMOL 500 MG TABLET PO PRN ×3 (05:11→22:11)
[2019-06-01] MEDS: hydrOXYzine PAMOATE 25 MG CAPSULE (FP) PO PRN (05:11)
[2019-06-01] MEDS: NICOTINE 21 MG/24 HOURS TOPICAL PATCH TD SCH (09:16)
[2019-06-01] MEDS: PRENATAL VITAMINS W/ FOLIC ACID TABLET (FP) PO SCH (09:17)
[2019-06-01] MEDS: ACETAMINOPHEN 325 MG TABLET (FP) PO PRN (09:17)
[2019-06-01] MEDS: PANTOPRAZOLE 20 MG TABLET (FP) PO SCH (09:17)
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
--- NOTE | 2019-06-01 12:29 | PN ---
S CIWA - CIWA Score Nausea/Vomitin-No Nausea/No Vomiting Muscle Tremors: 3 Anxiety: 2 Agitation: 3 Paroxysmal Sweats: 1-Minimal Palms Moist Orientation: 0-Oriented Tacttile Disturbances: 0-None Auditory Disturbances: 0-None Visual Disturbances: 0-None Headache: 2-Mild CIWA-Ar Total Score: 11 [facility] Progress Note (SOAP) Subjective: headache sweats shakes interrupted sleep Objective: 06/01/19 12:28 Vital Signs Temperature 97.9 F 06/01/19 09:54 Pulse Rate 90 06/01/19 09:54 Respiratory Rate 18 06/01/19 09:54 Blood Pressure 119/77 06/01/19 09:54 O2 Sat by Pulse Oximetry (%) labs pending aaox3 ambulating no acute distress Assessment: 06/01/19 12:28 withdrawals Plan: continue detox tylenol/motrin prn increase fluids
[2019-06-01 12:40] LABS: HEMATOCRIT 41.3 % (35.4-49); HEMOGLOBIN 14.1 GM/dL (11.7-16.9); MCH 31.9 pg (25.7-33.7); MCHC 34.2 g/dl (32.0-35.9); MEAN CELL VOLUME 93.3 fl (80-96); MEAN PLT VOLUME 8.3 fl (7.5-11.1); PLATELET COUNT 270 K/MM3 (134-434); RBC 4.43 M/mm3 (4.00-5.60); RDW 13.3 % (11.9-15.9); WHITE BLOOD COUNT 5.2 K/mm3 (4.0-10.0)
[2019-06-01 12:46] LABS: ALBUMIN 3.7 g/dl (3.4-5.0); BILIRUBIN,TOTAL 0.8 mg/dL (0.2-1); BLOOD UREA NITROGEN 12.3 mg/dL (7-18); CALCIUM 9.4 mg/dL (8.5-10.1); CREATININE 1.1 mg/dL (0.55-1.3); POTASSIUM 3.6 mmol/L (3.5-5.1); TOT PROT 6.7 g/dl (6.4-8.2)
[2019-06-01 13:18] LABS: HYALINE CASTS 16 /lpf (0-8); PH,URINE 6.5 (5.0-8.0); URINE APPEARANCE CLEAR; URINE BACTERIA 3.4 /hpf (NEGATIVE); URINE BILIRUBIN NEGATIVE (NEGATIVE); URINE COLOR DK YELLOW; URINE GLUCOSE (UA) NEGATIVE (NEGATIVE); URINE KETONE 2+ (NEGATIVE); URINE LEUK ESTERASE 1+ (NEGATIVE); URINE NITRITE NEGATIVE (NEGATIVE); URINE PROTEIN TRACE (NEGATIVE); URINE RBC 1 /hpf (0-4); URINE WBC 12 /hpf (0-5)
[2019-06-01] MEDS: IBUPROFEN 400 MG TABLET (FP) PO PRN (16:56)
[2019-06-01] MEDS ORDERED: PRAZOSIN HCL 2 MG CAPSULE PO SCH (22:00)
[2019-06-01] MEDS: THIAMINE HCL 100 MG TABLET (FP) PO SCH (22:06)
[2019-06-01] MEDS: PRAZOSIN HCL 1 MG CAPSULE PO SCH (22:06)
[2019-06-01] MEDS: MELATONIN 5 MG TABLETS PO PRN (22:08)
[2019-06-02] MEDS: ACETAMINOPHEN 325 MG TABLET (FP) PO PRN (01:38)
[2019-06-02] MEDS: chlordiazePOXIDE HCL 25 MG CAPSULE PO SCH ×4 (05:01→22:13)
[2019-06-02] MEDS: GABAPENTIN 300 MG CAPSULE (FP) PO SCH ×3 (05:01→22:13)
[2019-06-02] MEDS: METHOCARBAMOL 500 MG TABLET PO PRN (05:03)
[2019-06-02] MEDS: IBUPROFEN 400 MG TABLET (FP) PO PRN ×2 (09:10→19:00)
[2019-06-02] MEDS ORDERED: BACLOFEN 10 MG TABLET (FP) PO ONE (09:29)
--- NOTE | 2019-06-02 10:01 | PN ---
S CIWA - CIWA Score Nausea/Vomitin-No Nausea/No Vomiting Muscle Tremors: 2 Anxiety: 2 Agitation: 2 Paroxysmal Sweats: 1-Minimal Palms Moist Orientation: 0-Oriented Tacttile Disturbances: 0-None Auditory Disturbances: 0-None Visual Disturbances: 0-None Headache: 0-None Present CIWA-Ar Total Score: 7 BHS Progress Note (SOAP) Subjective: low back pain sweats i need my psych meds muscle cramping agitation Objective: 06/02/19 10:00 Vital Signs Temperature 97.2 F L 06/02/19 09:23 Pulse Rate 72 06/02/19 09:23 Respiratory Rate 18 06/02/19 09:23 Blood Pressure 95/50 L 06/02/19 09:23 O2 Sat by Pulse Oximetry (%) Laboratory Tests 06/01/19 06/01/19 06/01/19 07:50 07:50 08:20 WBC 5.2 RBC 4.43 Hgb 14.1 Hct 41.3 MCV 93.3 MCH 31.9 MCHC 34.2 RDW 13.3 D Plt Count 270 MPV 8.3 Sodium 140 Potassium 3.6 Chloride 104 Carbon Dioxide 31 Anion Gap 6 L BUN 12.3 Creatinine 1.1 Est GFR (CKD-EPI)AfAm 103.85 Est GFR (CKD-EPI)NonAf 89.61 Random Glucose 95 Calcium 9.4 Total Bilirubin 0.8 AST 28 ALT 46 Alkaline Phosphatase 75 Total Protein 6.7 Albumin 3.7 Urine Color Dk yellow Urine Appearance Clear Urine pH 6.5 Ur Specific [place] 1.031 Urine Protein Trace Urine Glucose (UA) Negative Urine Ketones 2+ H Urine Blood Negative Urine Nitrite Negative Urine Bilirubin Negative Urine Urobilinogen 1.0 Ur Leukocyte Esterase 1+ H Urine WBC (Auto) 12 Urine RBC (Auto) 1 Urine Casts (Auto) 16 U Epithel Cells (Auto) 3.0 Urine Bacteria (Auto) 3.4 labs pending aaox3 ambulating no acute distress Assessment: 06/02/19 10:01 withdrawals sx Plan: continue detox increase fluids lidocaine patch baclofen psych ordered
[2019-06-02] MEDS: PANTOPRAZOLE 20 MG TABLET (FP) PO SCH (10:04)
[2019-06-02] MEDS: DULoxetine HCL 30 MG CAPSULE.DR PO SCH (10:04)
[2019-06-02] MEDS: NICOTINE 21 MG/24 HOURS TOPICAL PATCH TD SCH (10:04)
[2019-06-02] MEDS: PRENATAL VITAMINS W/ FOLIC ACID TABLET (FP) PO SCH (10:04)
[2019-06-02] MEDS: LIDOCAINE 5% TOPICAL PATCH TP SCH (10:08)
--- NOTE | 2019-06-02 12:00 | EKG ---
Test Reason : Blood Pressure : / mmHG Vent. Rate : 053 BPM Atrial Rate : 053 BPM P-R Int : 108 ms QRS Dur : 100 ms QT Int : 412 ms P-R-T Axes : 046 -29 020 degrees QTc Int : 386 ms SINUS BRADYCARDIA WITH SHORT W[place] OTHERWISE NORMAL ECG WHEN COMPARED WITH ECG OF 28-AUG-2018 21:24, T WAVE VARIATION Confirmed by NITESH SILVA MD ([id number]) on 06/02/2019 12:00:25 PM Referred By: Eleno Cardoso Confirmed By:NITESH SILVA MD
[2019-06-02] MEDS: hydrOXYzine PAMOATE 25 MG CAPSULE (FP) PO PRN ×2 (12:09→19:00)
[2019-06-02] MEDS: NICOTINE POLACRILEX 2 MG GUM BUC PRN (12:11)
[2019-06-02] MEDS: BACLOFEN 10 MG TABLET (FP) PO SCH ×2 (14:38→22:13)
[2019-06-02] MEDS: BISMUTH SUBSALICYLATE 524 MG/30 ML UD PO PRN (19:03)
[2019-06-02] MEDS: THIAMINE HCL 100 MG TABLET (FP) PO SCH (22:13)
[2019-06-02] MEDS: PRAZOSIN HCL 1 MG CAPSULE PO SCH (22:13)
[2019-06-02] MEDS: MELATONIN 5 MG TABLETS PO PRN (22:16)
[2019-06-02] MEDS: LIDOCAINE PATCH REMOVAL MC SCH (22:16)
[2019-06-03] MEDS ORDERED: chlordiazePOXIDE HCL 10 MG CAPSULE PO PRN
[2019-06-03] MEDS: chlordiazePOXIDE HCL 10 MG CAPSULE PO SCH ×4 (05:34→22:20)
[2019-06-03] MEDS: GABAPENTIN 300 MG CAPSULE (FP) PO SCH ×3 (05:34→22:19)
[2019-06-03] MEDS: BACLOFEN 10 MG TABLET (FP) PO SCH ×3 (05:35→22:20)
[2019-06-03] MEDS: hydrOXYzine PAMOATE 25 MG CAPSULE (FP) PO PRN (05:36)
[2019-06-03] MEDS: BISMUTH SUBSALICYLATE 524 MG/30 ML UD PO PRN (05:37)
[2019-06-03] MEDS: PRENATAL VITAMINS W/ FOLIC ACID TABLET (FP) PO SCH (10:13)
[2019-06-03] MEDS: LIDOCAINE 5% TOPICAL PATCH TP SCH (10:14)
[2019-06-03] MEDS: PANTOPRAZOLE 20 MG TABLET (FP) PO SCH (10:14)
[2019-06-03] MEDS: DULoxetine HCL 30 MG CAPSULE.DR PO SCH (10:14)
[2019-06-03] MEDS: NICOTINE POLACRILEX 2 MG GUM BUC PRN ×3 (10:15→22:25)
[2019-06-03] MEDS: NICOTINE 21 MG/24 HOURS TOPICAL PATCH TD SCH (10:15)
[2019-06-03] MEDS ORDERED: IBUPROFEN 600 MG TABLET (FP) PO PRN (10:22)
--- NOTE | 2019-06-03 10:37 | PN ---
[facility] CIWA - CIWA Score Nausea/Vomitin-No Nausea/No Vomiting Muscle Tremors: 3 Anxiety: 2 Agitation: 2 Paroxysmal Sweats: No Perspiration Orientation: 0-Oriented Tacttile Disturbances: 0-None Auditory Disturbances: 0-None Visual Disturbances: 0-None Headache: 0-None Present CIWA-Ar Total Score: 7 BHS Progress Note (SOAP) Subjective: anxiety irritable I need to see psych Objective: 06/03/19 10:33 Vital Signs Temperature 97.9 F 06/03/19 09:23 Pulse Rate 68 06/03/19 09:23 Respiratory Rate 16 06/03/19 09:23 Blood Pressure 98/54 L 06/03/19 09:23 O2 Sat by Pulse Oximetry (%) Laboratory Tests 06/01/19 06/01/19 06/01/19 07:50 07:50 08:20 WBC 5.2 RBC 4.43 Hgb 14.1 Hct 41.3 MCV 93.3 MCH 31.9 MCHC 34.2 RDW 13.3 D Plt Count 270 MPV 8.3 Sodium 140 Potassium 3.6 Chloride 104 Carbon Dioxide 31 Anion Gap 6 L BUN 12.3 Creatinine 1.1 Est GFR (CKD-EPI)AfAm 103.85 Est GFR (CKD-EPI)NonAf 89.61 Random Glucose 95 Calcium 9.4 Total Bilirubin 0.8 AST 28 ALT 46 Alkaline Phosphatase 75 Total Protein 6.7 Albumin 3.7 Urine Color Dk yellow Urine Appearance Clear Urine pH 6.5 Ur Specific [place] 1.031 Urine Protein Trace Urine Glucose (UA) Negative Urine Ketones 2+ H Urine Blood Negative Urine Nitrite Negative Urine Bilirubin Negative Urine Urobilinogen 1.0 Ur Leukocyte Esterase 1+ H Urine WBC (Auto) 12 Urine RBC (Auto) 1 Urine Casts (Auto) 16 U Epithel Cells (Auto) 3.0 Urine Bacteria (Auto) 3.4 aaox3 ambulating no acute distress Assessment: 06/03/19 10:37 withdrawals Plan: continue detox increase fluids psych ordered as per pt request
[2019-06-03] MEDS: hydrOXYzine PAMOATE 50 MG CAPSULE (FP) PO PRN ×2 (11:46→22:25)
--- NOTE | 2019-06-03 11:47 | PN ---
[facility] Progress Note Note: pt approached the nursing station/desk and states out loud to staff "if I dont see psych, I am going to commit suicide" then pt walked away. Pt was immediately placed on a 1:1, psych was paged and he responded and was informed of pt statement. Psych was on the unit to see pt.
--- NOTE | 2019-06-03 11:58 | PN ---
Psychiatric Progress Note Vital Signs: Vital Signs Period Temp Pulse Resp BP Sys/Jenkins Pulse Ox Last 24 Hr 97.0 F-100.9 F 64-84 16-18 98-114/50-69 Date of Session: 06/03/19 Chief Complaint:: Suicidal ideations HPI: Mr Judd is a 28 years old Black male with history of Bipolar Disorder, PTSD and alcohol use admitted on 05/31/19 for inpatient detoxification. 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 [employer] was asked by SILVIANO Dos Santos to see patient who reported feeling suicidal Current Medications: Active Medications Generic Name Dose Route Start Last Admin Trade Name Freq PRN Reason Stop Dose Admin Acetaminophen 650 mg 05/31/19 21:38 06/02/19 01:38 Tylenol - PO 650 mg Q6H PRN Administration PAIN LEVEL 4 - 6 Acetaminophen 650 mg 05/31/19 21:38 06/02/19 17:26 Tylenol - PO 650 mg Q6H PRN Administration FEVER Al Hydroxide/Mg Hydroxide 30 ml 05/31/19 21:38 06/02/19 01:38 Mylanta Oral Suspension - PO 30 ml Q6H PRN Administration DYSPEPSIA Baclofen 10 mg 06/02/19 14:00 06/03/19 05:35 Lioresal - PO 10 mg TID BETTY Administration Bismuth Subsalicylate 524 mg 05/31/19 21:38 06/03/19 05:37 Pepto-Bismol - PO 524 mg Q1H PRN Administration DIARRHEA Chlordiazepoxide HCl 10 mg 06/03/19 05:00 06/03/19 10:14 Librium - PO 06/03/19 23:01 10 mg [id number] BETTY Administration Chlordiazepoxide HCl 10 mg 06/04/19 05:00 Librium - PO 06/04/19 17:01 Q12H BETTY Chlordiazepoxide HCl 10 mg 06/03/19 00:00 Librium - PO 06/04/19 00:00 Q4H PRN WITHDRAWAL(CONT SUBST) Chlordiazepoxide HCl 10 mg 06/05/19 05:00 Librium - PO 06/05/19 05:01 ONCE@0500 ONE Dicyclomine HCl 10 mg 05/31/19 21:38 06/02/19 12:09 Bentyl - PO 06/06/19 21:39 10 mg Q6H PRN Administration Abdominal Cramping Duloxetine HCl 60 mg 06/02/19 10:00 06/03/19 10:14 Cymbalta - PO 60 mg DAILY BETTY Administration Eucalyptus/Menthol/Phenol/Sorbitol 1 each 05/31/19 21:38 Cepastat Lozenge - MM 06/06/19 21:38 Q4H PRN SORE THROAT Gabapentin 600 mg 05/31/19 23:15 06/03/19 05:34 Neurontin - PO 600 mg TID BETTY Administration Guaifenesin 10 ml 05/31/19 21:38 Robitussin - PO Q6H PRN COUGH Hydroxyzine Pamoate 50 mg 06/03/19 11:38 Vistaril - PO Q4H PRN ANXIETY Ibuprofen 600 mg 06/03/19 10:22 Motrin - PO Q6H PRN PAIN LEVEL 4 - 6 Lidocaine 1 patch 06/02/19 10:00 06/03/19 10:14 Lidoderm Patch - TP 1 patch DAILY BETTY Administration Magnesium Citrate 300 ml 05/31/19 21:38 Citroma - PO Q48H PRN CONSTIPATION Magnesium Hydroxide 30 ml 05/31/19 21:38 Milk Of Magnesia - PO PRN PRN CONSTIPATION Melatonin 5 mg 05/31/19 21:38 06/02/19 22:16 Melatonin PO 5 mg HS PRN Administration INSOMNIA Miscellaneous 1 each 06/02/19 22:00 06/02/19 22:16 Lidoderm Patch Removal MC 1 each DAILY@2200 BETTY Administration Nicotine 21 mg 06/01/19 10:00 06/03/19 10:15 Nicoderm Patch - TD Not Given DAILY BETTY Nicotine Polacrilex 2 mg 05/31/19 21:38 06/03/19 10:15 Nicorette Gum - BUC 2 mg Q2H PRN Administration NICOTINE REPLACEMENT RX Ondansetron HCl 4 mg 05/31/19 21:38 Zofran Odt - SL 06/06/19 21:39 Q12H PRN Nausea/Vomiting Pantoprazole Sodium 20 mg 06/01/19 10:00 06/03/19 10:14 Protonix - PO 20 mg DAILY BETTY Administration Prazosin HCl 2 mg 06/01/19 22:00 06/02/19 22:13 Minipress - PO 2 mg HS BETTY Administration Multivit/Folic Acid/Iron 1 tab 06/01/19 10:00 06/03/19 10:13 Vitamins (Sjr) - PO 1 tab DAILY BETTY Administration Pseudoephedrine/Triprolidine 1 combo 05/31/19 21:38 Actifed - PO 06/06/19 21:39 Q6H PRN NASAL CONGESTION Thiamine HCl 100 mg 05/31/19 22:00 06/02/19 22:13 Vitamin B1 - PO 100 mg HS BETTY Administration Current Side Effect: No Lab tests ordered: Yes Lab tests reviewed: Yes Provider note:: Patient seen for evaluation. DESIGN AGENT Dom's note read and appreciated. Patient is calm, pleasant and cooperative. Told functional tester typewriters that he has been asking to see the psychiatrist for anxiety since yesterday and the doctor told him that he was on the psychiatrist's list when he wasn't. He said that he told the doctor that he was having suicidal thoughts so he could get the attention he deserves. Reports that he is not at all suicidal, he has to do what he has to do to get attention. He requested to get Prazosin 2 mg/tid. He was told by functional tester typewriters that Prazosin is a medication for hypertension but it is used once at night for nightmares. He asked why his psychiatrist prescribed it to him three times a day. He was told that he has to check with his psychiatrist about that but here we don't feel comfortable prescribing it otherwise. He was very understanding and accepted that explanation. We agreed that Vistaril dosage would be increased to 50 mg po Q 4 hrs prn for anxiety Mental Status Exam - Mental Status Exam Alert and Oriented to: Time, Place, Person Cognitive Function: Fair Patient Appearance: Well Groomed Mood: Anxious Affect: Appropriate Patient Behavior: Cooperative Speech Pattern: Clear Voice Loudness: Normal Thought Process: Intact, Goal Oriented Thought Disorder: Not Present Hallucinations: Denies Suicidal Ideation: Denies Homicidal Ideation: Denies Insight/Judgement: Poor Sleep: Fair Appetite: Good Muscle strength/Tone: Normal Gait/Station: Normal Psychiatric Treatment Plan - Problem List (1) Bipolar disorder Current Visit: Yes Comment: No symptom elicited.Historical diagnosis. (2) PTSD (post-traumatic stress disorder) Current Visit: Yes (3) Substance-induced anxiety disorder Current Visit: Yes (4) Alcohol dependence with uncomplicated withdrawal Current Visit: No (5) Nicotine dependence Current Visit: Yes (6) Asthma Current Visit: Yes (7) GERD (gastroesophageal reflux disease) Current Visit: Yes Initial treatment plan: 1) Discontinue Vistaril 25 mg po Q 6hrs prn for anxiety. 2) Start Vistaril 50 mg po Q 4hrs prn for anxiety. 3) Patient has no need for 1:1. 4) Continue inpatient detoxification
--- NOTE | 2019-06-03 13:20 | PN ---
S Progress Note Note: pt was seen and evaluated by Dr. Jin (psychiatrist), pt will be discharged from the 1:1 which was placed for safety.
[2019-06-03] MEDS: PRAZOSIN HCL 1 MG CAPSULE PO SCH (22:18)
[2019-06-03] MEDS: THIAMINE HCL 100 MG TABLET (FP) PO SCH (22:19)
[2019-06-03] MEDS: MELATONIN 5 MG TABLETS PO PRN (22:20)
[2019-06-03] MEDS: LIDOCAINE PATCH REMOVAL MC SCH (22:20)
[2019-06-04] MEDS ORDERED: chlordiazePOXIDE HCL 10 MG CAPSULE PO SCH (05:00)
[2019-06-04] MEDS: BACLOFEN 10 MG TABLET (FP) PO SCH (05:27)
[2019-06-04] MEDS: GABAPENTIN 300 MG CAPSULE (FP) PO SCH (05:28)
[2019-06-04] MEDS: hydrOXYzine PAMOATE 50 MG CAPSULE (FP) PO PRN (05:30)
[2019-06-04] MEDS: NICOTINE POLACRILEX 2 MG GUM BUC PRN (05:32)
[2019-06-04] MEDS: BISMUTH SUBSALICYLATE 524 MG/30 ML UD PO PRN (05:50)
[2019-06-04 09:20] VITALS: BP 126/77; PULSE 76; TEMP 96.4
[2019-06-04] MEDS: DULoxetine HCL 30 MG CAPSULE.DR PO SCH (10:07)
[2019-06-04] MEDS: PANTOPRAZOLE 20 MG TABLET (FP) PO SCH (10:08)
[2019-06-04] MEDS: LIDOCAINE 5% TOPICAL PATCH TP SCH (10:08)
[2019-06-04] MEDS: PRENATAL VITAMINS W/ FOLIC ACID TABLET (FP) PO SCH (10:08)
[2019-06-04] MEDS: NICOTINE 21 MG/24 HOURS TOPICAL PATCH TD SCH (10:08)
[2019-06-04] MEDS: ACETAMINOPHEN 325 MG TABLET (FP) PO PRN (10:09)
--- NOTE | 2019-06-04 10:10 | PN ---
[facility] CIWA - CIWA Score Nausea/Vomitin-No Nausea/No Vomiting Muscle Tremors: 1-None Visible, but [place] Anxiety: 1-Mildly Anxious Agitation: 1-Slight > Activity Paroxysmal Sweats: 1-Minimal Palms Moist Orientation: 0-Oriented Tacttile Disturbances: 0-None Auditory Disturbances: 0-None Visual Disturbances: 0-None Headache: 0-None Present CIWA-Ar Total Score: 4 BHS Progress Note (SOAP) Subjective: irritable Objective: 06/04/19 10:10 Vital Signs Temperature 96.4 F L 06/04/19 09:20 Pulse Rate 76 06/04/19 09:20 Respiratory Rate 20 06/04/19 09:20 Blood Pressure 126/77 06/04/19 09:20 O2 Sat by Pulse Oximetry (%) aaox3 ambulating no acute distress Assessment: 06/04/19 10:10 withdrawals Plan: continue detox d/c in am
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
[2019-06-05] MEDS ORDERED: chlordiazePOXIDE HCL 10 MG CAPSULE PO ONE (05:00)
[2019-06-05] MEDS ORDERED: DULoxetine HCL 60 MG CAPSULE.DR PO SCH (10:00)
== END 2019-06-04 12:21 | disposition other institution (70) | DRG 775 ==
LOC: YASAS 17:09 → Y6N 22:01
PROVIDERS: ADMIT Allergy & Immunology; ATTEND Allergy & Immunology
PROC: HZ2ZZZZ Detoxification Services for Substance Abuse Treatment (ICD-10-PCS; principal; 2019-05-31)
DX: F10.230 Alcohol dependence with withdrawal, uncomplicated (principal); F17.210 Nicotine dependence, cigarettes, uncomplicated; F19.282 Other psychoactive substance dependence with psychoactive substance-induced sleep disorder; F19.280 Other psychoactive substance dependence with psychoactive substance-induced anxiety disorder; F19.24 Other psychoactive substance dependence with psychoactive substance-induced mood disorder; F10.24 Alcohol dependence with alcohol-induced mood disorder; F43.10 Post-traumatic stress disorder, unspecified; F34.1 Dysthymic disorder; F31.81 Bipolar II disorder; H05.243 Constant exophthalmos, bilateral; J45.20 Mild intermittent asthma, uncomplicated; K21.9 Gastro-esophageal reflux disease without esophagitis; M54.5 Low back pain; G89.29 Other chronic pain; Z87.828 Personal history of other (healed) physical injury and trauma; Z91.013 Allergy to seafood; Z91.018 Allergy to other foods
CPT/HCPCS: 36415; 80053; 81003; 85027; 86593; 93005; 93010; J0475

== ENCOUNTER 2020-01-18 10:55 | Inpatient (IN) | payer OTHER ==
--- NOTE | 2020-01-18 12:36 | BHS.RME ---
Substance Use & Tx History - Substance Use History Alcohol Substance amount: 2pints of frederick/2 of 6 packs of 16ozs of beer Frequency of use: Daily Substance route: Oral Date of Last Use: 01/17/20 Marijuana/Hashish Substance amount: 20 $ Frequency of use: Less than 3 times per week Substance route: Smoking Date of Last Use: 01/16/20 - Last Treatment Date of last treatment: [facility] 10/2019 Where was last treatment: Detox Physical/Psych/Mental Status - Behavior Eye Contact: Normal - Cooperativeness Cooperativeness: Cooperative - Thinking Thought Processes: Logical Thought content: Future oriented - Physical Health Problems Is patient presently having any pain?: No Does patient presently have any injuries (include location): No Does patient currently have a fever: No CIWA Nausea/Vomitin Muscle Tremors: 3 Anxiety: 2 Agitation: 3 Paroxysmal Sweats: 1-Minimal Palms Moist Orientation: 0-Oriented Tacttile Disturbances: 0-None Auditory Disturbances: 0-None Visual Disturbances: 0-None Headache: 2-Mild CIWA-Ar Total Score: 13
--- NOTE | 2020-01-18 12:41 | HP ---
CIWA Score Nausea/Vomitin Muscle Tremors: 3 Anxiety: 2 Agitation: 3 Paroxysmal Sweats: 1-Minimal Palms Moist Orientation: 0-Oriented Tacttile Disturbances: 0-None Auditory Disturbances: 0-None Visual Disturbances: 0-None Headache: 2-Mild CIWA-Ar Total Score: 13 - Admission Criteria OASAS Guidelines: Admission for Medically Managed Detox: Requires at least one of the followin. CIWA greater than 12 2. Seizures within the past 24 hours 3. Delirium tremens within the past 24 hours 4. Hallucinations within the past 24 hours 5. Acute intervention needed for co occurring medical disorder 6. Acute intervention needed for co occurring psychiatric disorder 7. Severe withdrawal that cannot be handled at a lower level of care (continued vomiting, continued diarrhea, abnormal vital signs) requiring intravenous medication and/or fluids 8. Admitting History and Physical - Admission Chief Complaint: i need help to stop drinking History of Present Illness: this 29 years old male alcohol dependence,marihuana abused,requested detox, last detox 10/19 in [place] had covid 19 tested positive in 10/2019 weight loss anxiety,depression,ptsd,bipolar disorder longest sobriety 11 months plan for rehab after detox unemployed,on disability,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, History Source: Patient Limitations to Obtaining History: No Limitations - Past Medical History SOFTWARE TECHNICAL LEAD: Yes: Syncope Gastrointestinal: Yes: GERD Psych: Yes: Addictions, Anxiety, Bipolar, Depression, Panic, Psychosis - Past Surgical History Past Surgical History: Yes: None - Smoking History Smoking history: Current every day smoker Have you smoked in the past 12 months: Yes Aproximately how many cigarettes per day: 20 If you are a former smoker, when did you quit?: 2 weeks ago - Alcohol/Substance Use Hx Alcohol Use: Yes History of Substance Use: reports: Marijuana Date of Last Use: 01/17/20 - Social History Usual Living Arrangement: Yes: Other (halfway) Do you think of yourself as: Straight/Heterosexual ADL: Support Services Occupation: unemployed History of Recent Travel: No Other Social History: unemployed,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,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,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 Admission ROS BHS - HPI Chief Complaint: i need hlep to stop drinking alcohol and marijuana abused Allergies/Adverse Reactions: Allergies Allergy/AdvReac Type Severity Reaction Status Date / Time lactose Allergy Verified 09/05/18 15:23 No Known Drug Allergies Allergy Verified 09/05/18 15:23 tomato Allergy Verified 05/31/19 17:42 SHELLFISH Allergy Severe Hives Uncoded 05/31/19 17:42 LACTOSE INTOLERANCE Allergy Uncoded 05/31/19 17:42 History of Present Illness: this 29 years old male with alcohol dependence and marijuana abued seeking detox, multiple admissions in detox and [facility],last detox in [place] in 10/2019 weight loss had covid 19 tested in 10/19 at [facility] last tested 12/15/19 at [facility] bipolar,anxiety,depression,ptsd longest sobriety 11 months Exam Limitations: No Limitations - Ebola screening Have you traveled outside of the country in the last 21 days: No Have you had contact with anyone from an Ebola affected area: No Have you been sick,other than usual withdrawal symptoms: No Do you have a fever: No - Review of Systems Constitutional: Loss of Appetite, Malaise, Night Sweats, Changes in sleep, Weakness EENT: reports: No Symptoms Reported, Nose Congestion Respiratory: reports: No Symptoms reported Cardiac: reports: No Symptoms Reported GI: reports: Nausea, Poor Appetite, Abdominal cramping : reports: No Symptoms Reported Musculoskeletal: reports: Back Pain, Muscle Pain Integumentary: reports: Dryness Neuro: reports: Tremors Endocrine: reports: No Symptoms Reported Hematology: reports: No Symptoms Reported Psychiatric: reports: No Sypmtoms Reported, Mood/Affect Appropiate, Agitated, Depressed, other (ptsd,bipolar) Patient History - Patient Medical History Hx Anemia: No Hx Asthma: Yes (as a child) Hx Chronic Obstructive Pulmonary Disease (COPD): No Hx Cancer: No Hx Cardiac Disorders: No Hx Congestive Heart Failure: No Hx Hypertension: No Hx Hypercholesterolemia: No Hx Pacemaker: No HX Cerebrovascular Accident: No Hx Seizures: No Hx Dementia: No Hx Diabetes: No Hx Gastrointestinal Disorders: Yes (ACID REFLUX) Hx Liver Disease: No Hx Genitourinary Disorders: No Hx Sexually Transmitted Disorders: No Hx Renal Disease (ESRD): No Hx Thyroid Disease: No Hx Human Immunodeficiency Virus (HIV): No (negative) Hx Hepatitis C: No Hx Depression: Yes Hx Suicide Attempt: Yes (attempted 7x, last attempt 12/30/18) Hx Bipolar Disorder: Yes Hx Schizophrenia: No Other Medical History: no suicdal,no homicidal - Patient Surgical History Past Surgical History: No Hx Neurologic Surgery: No Hx Cataract Extraction: No Hx Cardiac Surgery: No Hx Lung Surgery: No Hx Breast Surgery: No Hx Breast Biopsy: No Hx Abdominal Surgery: No Hx Appendectomy: No Hx Cholecystectomy: No Hx Genitourinary Surgery: No Hx Section: No Hx Orthopedic Surgery: No Anesthesia Reaction: No - PPD History Previous Implant?: Yes Documented Results: Negative w/o proof Implanted On Prior [facility] Admission?: Yes Date: 08/30/18 Results: 0 MM PPD to be Administered?: Yes - Smoking Cessation Smoking history: Current every day smoker Have you smoked in the past 12 months: Yes Aproximately how many cigarettes per day: 20 If you are a former smoker, when did you quit?: 2 weeks ago Cigars Per Day: 0 Hx Chewing Tobacco Use: No Initiated information on smoking cessation: Yes 'Breaking Loose' booklet given: 01/18/20 - Substance & Tx. History Hx Alcohol Use: Yes Hx Substance Use: Yes Substance Use Type: Alcohol, Marijuana Hx Substance Use Treatment: Yes ([facility] in 10/2019) - Substances abused Alcohol Substance route: Oral Frequency: Daily Amount used: 2pints of frederick/2 of 6 packs of 18 ozs of beer Age of first use: 15 Date of last use: 01/17/20 Marijuana/Hashish Substance route: Smoking Frequency: 1-2 times per week Amount used: 20$ Age of first use: 15 Date of last use: 01/17/20 Admission Physical Exam BHS - Vital Signs Vital Signs: t97.3,p86,bp 129/90,r18 - Physical General Appearance: Yes: Moderate Distress, Tremorous, Irritable, Sweating, Anxious HEENTM: Yes: Normal ENT Inspection, NITISH, Pharynx Normal Respiratory: Yes: Within Normal Limits, Lungs Clear, Normal Breath Sounds, No Respiratory Distress Neck: Yes: Supple, Trachea in good position Breast: Yes: Within Normal Limits Cardiology: Yes: Within Normal Limits, Regular Rhythm, S1, S2 Abdominal: Yes: Within Normal Limits, Normal Bowel Sounds, Non Tender, Flat, Soft Genitourinary: Yes: Within Normal Limits Back: Yes: Muscle Spasm Extremities: Yes: Tremors 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: garden worker II-XII NML intact, Fully Oriented, Alert, Motor Strength 5/5 Integumentary: Yes: Dry Lymphatic: Yes: Within Normal Limits - Diagnostic (1) Alcohol dependence with uncomplicated withdrawal Current Visit: Yes Status: Chronic (2) Cannabis abuse Current Visit: Yes Status: Acute (3) GERD (gastroesophageal reflux disease) Current Visit: No Status: Chronic Qualifiers: Esophagitis presence: esophagitis presence not specified Qualified Code(s): K21.9 - Gastro-esophageal reflux disease without esophagitis (4) Insomnia Current Visit: No Status: Chronic Qualifiers: Insomnia type: unspecified Qualified Code(s): G47.00 - Insomnia, unspecified (5) Nicotine dependence Current Visit: Yes Status: Chronic Qualifiers: Nicotine product type: cigarettes Substance use status: uncomplicated Qualified Code(s): F17.210 - Nicotine dependence, cigarettes, uncomplicated (6) Weight loss Current Visit: Yes Status: Acute (7) Asthma Current Visit: No Status: Chronic Qualifiers: Asthma severity: unspecified severity Asthma persistence: unspecified Asthma complication type: uncomplicated Qualified Code(s): J45.909 - Unspecified asthma, uncomplicated (8) MDD (major depressive disorder) Current Visit: Yes Status: Acute (9) PTSD (post-traumatic stress disorder) Current Visit: Yes Status: Acute (10) Nicotine dependence Current Visit: No Status: Chronic Qualifiers: Nicotine product type: cigarettes Substance use status: uncomplicated Qualified Code(s): F17.210 - Nicotine dependence, cigarettes, uncomplicated Cleared for Admission [facility] - Detox or Rehab [facility] Level of Care: Medically Managed Detox Regimen/Protocol: Librium Breathalyzer - Breathalyzer Breathalyzer: 0 Urine Drug Screen - Test Device Lot number: [id number] Expiration date: 01/29/21 - Control Is test valid?: Yes - Results Drug screen NEGATIVE: Yes Inpatient Rehab Admission - Rehab Decision to Admit Inpatient rehab admission?: No
[2020-01-18] MEDS ORDERED: MAGNESIUM CITRATE 300 ML BOTTLE PO PRN (13:04)
[2020-01-18] MEDS ORDERED: IBUPROFEN 400 MG TABLET (FP) PO PRN (13:04)
[2020-01-18] MEDS ORDERED: MENTHOL/PHENOL 1 EACH UD MM PRN (13:04)
[2020-01-18] MEDS ORDERED: MAGNESIUM HYDROX 2400MG/30ML ORAL SUSPENSION 30 ML CUP PO PRN (13:04)
[2020-01-18] MEDS ORDERED: ONDANSETRON *ODT* 4 MG TABLET SL ONE (13:04)
[2020-01-18] MEDS ORDERED: BISMUTH SUBSALICYLATE 524 MG/30 ML UD PO PRN (13:04)
[2020-01-18] MEDS ORDERED: chlordiazePOXIDE HCL 25 MG CAPSULE PO PRN (13:04)
[2020-01-18] MEDS ORDERED: MAG HYDROX/AL HYDROX/SIMETH 30 ML UNIT-DOSE CUP PO PRN (13:04)
[2020-01-18] MEDS ORDERED: ACETAMINOPHEN 325 MG TABLET (FP) PO PRN ×2 (13:04)
[2020-01-18 13:57] VITALS: BMI 20.3
[2020-01-18] MEDS ORDERED: TUBERCULIN PPD 5 TU/0.1ML VIAL ID ONE (14:53)
[2020-01-18] MEDS: NICOTINE POLACRILEX 2 MG GUM BUC PRN (15:02)
[2020-01-18] MEDS: NICOTINE 14 MG/24 HOURS TOPICAL PATCH TD SCH (15:02)
[2020-01-18] MEDS: hydrOXYzine PAMOATE 25 MG CAPSULE (FP) PO SCH ×3 (15:02→22:04)
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
[2020-01-18] MEDS: GABAPENTIN 300 MG CAPSULE PO SCH ×2 (15:29→22:03)
[2020-01-18] MEDS: chlordiazePOXIDE HCL 25 MG CAPSULE PO SCH ×2 (17:04→22:03)
[2020-01-18 21:52] LABS: EPI CELLS 25 /uL (0-25.1); HYALINE CASTS 4 /uL (0-3.1); PH,URINE 6.5 (5.0-8.0); URINE APPEARANCE TURBID; URINE BACTERIA 113 /uL (0-1359); URINE BILIRUBIN NEGATIVE (NEGATIVE); URINE COLOR ORANGE; URINE GLUCOSE (UA) NEGATIVE (NEGATIVE); URINE KETONE 1+ (NEGATIVE); URINE LEUK ESTERASE 1+ (NEGATIVE); URINE NITRITE NEGATIVE (NEGATIVE); URINE PROTEIN 1+ (NEGATIVE); URINE RBC 3 /uL (0-23.9); URINE WBC 28 /uL (0-25.8)
[2020-01-18] MEDS: MELATONIN 5 MG TABLETS PO SCH (22:03)
[2020-01-18] MEDS: THIAMINE HCL 100 MG TABLET (FP) PO SCH (22:03)
[2020-01-19] MEDS: chlordiazePOXIDE HCL 25 MG CAPSULE PO SCH ×4 (06:58→22:34)
[2020-01-19] MEDS: hydrOXYzine PAMOATE 25 MG CAPSULE (FP) PO SCH ×5 (06:59→22:34)
[2020-01-19] MEDS: GABAPENTIN 300 MG CAPSULE PO SCH ×3 (06:59→22:34)
[2020-01-19 10:13] LABS: HEMATOCRIT 47.8 % (35.4-49); HEMOGLOBIN 15.8 GM/dL (11.7-16.9); MCH 30.4 pg (25.7-33.7); MCHC 33.1 g/dl (32.0-35.9); MEAN CELL VOLUME 91.9 fl (80-96); PLATELET COUNT 240 K/MM3 (134-434); RDW 14.9 % (11.9-15.9); WHITE BLOOD COUNT 4.7 K/mm3 (4.0-10.0)
[2020-01-19 10:33] LABS: ALBUMIN 4.2 g/dl (3.4-5.0); BILIRUBIN,TOTAL 1.2 mg/dL (0.2-1); BLOOD UREA NITROGEN 9.5 mg/dL (7-18); CALCIUM 9.7 mg/dL (8.5-10.1); CREATININE 1.1 mg/dL (0.55-1.3); POTASSIUM 3.9 mmol/L (3.5-5.1); TOT PROT 8.2 g/dl (6.4-8.2)
[2020-01-19] MEDS: DULoxetine HCL 30 MG CAPSULE.DR PO SCH (11:08)
[2020-01-19] MEDS: PRENATAL VITAMINS W/ FOLIC ACID TABLET (FP) PO SCH (11:09)
[2020-01-19] MEDS: NICOTINE 14 MG/24 HOURS TOPICAL PATCH TD SCH (11:09)
[2020-01-19] MEDS: NICOTINE POLACRILEX 2 MG GUM BUC PRN (12:56)
--- NOTE | 2020-01-19 14:24 | PN ---
S CIWA - CIWA Score Nausea/Vomitin-No Nausea/No Vomiting Muscle Tremors: 4-Moderate,w/Arms Extend Anxiety: 4-Mod. Anxious/Guarded Agitation: 4-Moderately Restless Paroxysmal Sweats: 1-Minimal Palms Moist Orientation: 0-Oriented Tacttile Disturbances: 0-None Auditory Disturbances: 0-None Visual Disturbances: 0-None Headache: 0-None Present CIWA-Ar Total Score: 13 BHS Progress Note (SOAP) Subjective: c/o tremors anxiety,sweats requests psych follow up today Objective: 01/19/20 14:22 Vital Signs - 24 hr 01/18/20 01/18/20 01/18/20 14:49 14:51 16:26 Temperature 97.5 F L 98.4 F Pulse Rate 84 81 Respiratory 18 18 Rate Blood Pressure 132/74 104/57 L O2 Sat by Pulse 98 Oximetry (%) 01/18/20 01/19/20 01/19/20 20:36 06:02 13:12 Temperature 97.5 F L 97.5 F L 98.6 F Pulse Rate 95 H 97 H 85 Respiratory 20 20 16 Rate Blood Pressure 132/92 99/56 L 120/73 O2 Sat by Pulse 98 97 98 Oximetry (%) Laboratory Tests 01/18/20 01/19/20 01/19/20 17:09 08:15 08:15 WBC RBC Hgb Hct MCV MCH MCHC RDW Plt Count MPV Sodium 142 Potassium 3.9 Chloride 106 Carbon Dioxide 28 Anion Gap 8 BUN 9.5 Creatinine 1.1 Est GFR (CKD-EPI)AfAm 103.13 Est GFR (CKD-EPI)NonAf 88.98 Random Glucose 73 L Calcium 9.7 Total Bilirubin 1.2 H AST 39 H ALT 47 Alkaline Phosphatase 130 H Total Protein 8.2 Albumin 4.2 Urine Color [place] Urine Appearance Turbid Urine pH 6.5 Ur Specific [place] 1.027 Urine Protein 1+ H Urine Glucose (UA) Negative Urine Ketones 1+ H Urine Blood Negative Urine Nitrite Negative Urine Bilirubin Negative Urine Urobilinogen 1.0 Ur Leukocyte Esterase 1+ H Urine WBC (Auto) 28 Urine RBC (Auto) 3 Urine Casts (Auto) 4 U Epithel Cells (Auto) 25 U Sm Round Cell (Auto) None seen Urine Bacteria (Auto) 113 Syphilis Serology Non-reactive 07/20/20 08:15 WBC 4.7 RBC 5.20 Hgb 15.8 Hct 47.8 D MCV 91.9 MCH 30.4 MCHC 33.1 RDW 14.9 D Plt Count 240 MPV 8.0 Sodium Potassium Chloride Carbon Dioxide Anion Gap BUN Creatinine Est GFR (CKD-EPI)AfAm Est GFR (CKD-EPI)NonAf Random Glucose Calcium Total Bilirubin AST ALT Alkaline Phosphatase Total Protein Albumin Urine Color Urine Appearance Urine pH Ur Specific [place] Urine Protein Urine Glucose (UA) Urine Ketones Urine Blood Urine Nitrite Urine Bilirubin Urine Urobilinogen Ur Leukocyte Esterase Urine WBC (Auto) Urine RBC (Auto) Urine Casts (Auto) U Epithel Cells (Auto) U Sm Round Cell (Auto) Urine Bacteria (Auto) Syphilis Serology covid-19 result pending UA noted Alert o x 3 nad oob ambulating with steady gait 01/19/20 15:10 Assessment: 01/19/20 14:22 withdrawal sx Plan: cont detox increase po fluids maintain safety psych consult follow up
[2020-01-19] MEDS ORDERED: PANTOPRAZOLE 40 MG TABLET PO SCH (15:00)
[2020-01-19] MEDS: MELATONIN 5 MG TABLETS PO SCH (22:34)
[2020-01-19] MEDS: THIAMINE HCL 100 MG TABLET (FP) PO SCH (22:34)
[2020-01-19] MEDS: METHOCARBAMOL 500 MG TABLET PO PRN (22:47)
[2020-01-19] MEDS ORDERED: ALBUTEROL SO4 HFA INHALER IH PRN (22:49)
[2020-01-20 01:28] LABS: URINE APPEARANCE CLEAR; URINE BILIRUBIN NEGATIVE (NEGATIVE); URINE COLOR YELLOW; URINE GLUCOSE (UA) NEGATIVE (NEGATIVE); URINE KETONE NEGATIVE (NEGATIVE); URINE LEUK ESTERASE NEGATIVE (NEGATIVE); URINE NITRITE NEGATIVE (NEGATIVE); URINE PROTEIN NEGATIVE (NEGATIVE); URINE UROBILINOGEN 0.2 mg/dL (0.2-1.0)
[2020-01-20 06:02] VITALS: BP 108/66; PULSE 81; TEMP 97.7
[2020-01-20] MEDS: GABAPENTIN 300 MG CAPSULE PO SCH (06:31)
[2020-01-20] MEDS: hydrOXYzine PAMOATE 25 MG CAPSULE (FP) PO SCH ×2 (06:31→11:01)
[2020-01-20] MEDS: chlordiazePOXIDE HCL 25 MG CAPSULE PO SCH ×2 (06:31→11:00)
[2020-01-20] MEDS: NICOTINE POLACRILEX 2 MG GUM BUC PRN ×2 (06:34→11:07)
[2020-01-20] MEDS: METHOCARBAMOL 500 MG TABLET PO PRN (09:16)
--- NOTE | 2020-01-20 09:27 | PN ---
S CIWA - CIWA Score Nausea/Vomitin-No Nausea/No Vomiting Muscle Tremors: 4-Moderate,w/Arms Extend Anxiety: 4-Mod. Anxious/Guarded Agitation: 3 Paroxysmal Sweats: 2 Orientation: 0-Oriented Tacttile Disturbances: 0-None Auditory Disturbances: 0-None Visual Disturbances: 0-None Headache: 0-None Present CIWA-Ar Total Score: 13 BHS Progress Note (SOAP) Subjective: Pt c/o anxiety Tremors sweats intermittent sleep dyspepsia and requests protonix be changed to 6:30 a.m Objective: 01/20/20 09:27 Vital Signs - 24 hr 01/19/20 01/19/20 01/20/20 13:12 21:37 06:01 Temperature 98.6 F 97.8 F 97.7 F Pulse Rate 85 86 81 Respiratory 16 18 18 Rate Blood Pressure 120/73 109/69 108/66 O2 Sat by Pulse 98 97 98 Oximetry (%) Laboratory Tests 01/18/20 01/19/20 01/19/20 17:09 08:15 08:15 WBC RBC Hgb Hct MCV MCH MCHC RDW Plt Count MPV Sodium Potassium Chloride Carbon Dioxide Anion Gap BUN Creatinine Est GFR (CKD-EPI)AfAm Est GFR (CKD-EPI)NonAf Random Glucose Calcium Total Bilirubin AST ALT Alkaline Phosphatase Total Protein Albumin Urine Color [place] Urine Appearance Turbid Urine pH 6.5 Ur Specific [place] 1.027 Urine Protein 1+ H Urine Glucose (UA) Negative Urine Ketones 1+ H Urine Blood Negative Urine Nitrite Negative Urine Bilirubin Negative Urine Urobilinogen 1.0 Ur Leukocyte Esterase 1+ H Urine WBC (Auto) 28 Urine RBC (Auto) 3 Urine Casts (Auto) 4 U Epithel Cells (Auto) 25 U Sm Round Cell (Auto) None seen Urine Bacteria (Auto) 113 Syphilis Serology Non-reactive HIV Ag/Ab Combo Qual Negative 01/19/20 01/19/20 01/19/20 08:15 08:15 22:46 WBC 4.7 RBC 5.20 Hgb 15.8 Hct 47.8 D MCV 91.9 MCH 30.4 MCHC 33.1 RDW 14.9 D Plt Count 240 MPV 8.0 Sodium 142 Potassium 3.9 Chloride 106 Carbon Dioxide 28 Anion Gap 8 BUN 9.5 Creatinine 1.1 Est GFR (CKD-EPI)AfAm 103.13 Est GFR (CKD-EPI)NonAf 88.98 Random Glucose 73 L Calcium 9.7 Total Bilirubin 1.2 H AST 39 H ALT 47 Alkaline Phosphatase 130 H Total Protein 8.2 Albumin 4.2 Urine Color [place] Urine Appearance Clear Urine pH 6.0 Ur Specific [place] 1.023 Urine Protein Negative Urine Glucose (UA) Negative Urine Ketones Negative Urine Blood Negative Urine Nitrite Negative Urine Bilirubin Negative Urine Urobilinogen 0.2 Ur Leukocyte Esterase Negative Urine WBC (Auto) Urine RBC (Auto) Urine Casts (Auto) U Epithel Cells (Auto) U Sm Round Cell (Auto) Urine Bacteria (Auto) Syphilis Serology HIV Ag/Ab Combo Qual labs noted covid-19 result pending Assessment: 01/20/20 11:19 mild w/s Plan: cont detox increase po fluids maintain safety Protonix 40 mg po daily at 0630 starting in a.m.
[2020-01-20] MEDS ORDERED: PANTOPRAZOLE 40 MG TABLET PO ONE (10:00)
[2020-01-20 10:16] LABS: INR 0.93 (0.83-1.09)
[2020-01-20 10:28] LABS: BILIRUBIN,TOTAL 0.5 mg/dL (0.2-1); BLOOD UREA NITROGEN 10.8 mg/dL (7-18); CALCIUM 9.3 mg/dL (8.5-10.1); TOT PROT 6.9 g/dl (6.4-8.2)
[2020-01-20 10:36] LABS: ALBUMIN 3.6 g/dl (3.4-5.0)
--- NOTE | 2020-01-20 10:55 | PN ---
Psychiatric Progress Note Vital Signs: Vital Signs Period Temp Pulse Resp BP Sys/Jenkins Pulse Ox Last 24 Hr 97.7 F-98.6 F 81-86 16-18 108-120/66-73 97-98 Date of Session: 01/20/20 Chief Complaint:: " I have to leave to attend the of my aunt in [place]." HPI: Day 3 of detoxification. Patient has decided to stop treatment and leave the program. Mr Judd informs staff that he has to leave due to a in his family (a maternal aunt a week ago). Patient indicates that he needs to travel to [place], [place] for the . Patient has requested a meeting with a psychiatric small business consultant, NOT for behavioral reasons or assessment of mental status, but only to " find out if I will get scripts when I leave." Hospitalization is brief and unremarkable. ROS: Patient is ambulatory, pleasant on approach alert and fully oriented. Gait is steady. No somatic complaints offered. Current Medications: Active Medications Generic Name Dose Route Start Last Admin Trade Name Freq PRN Reason Stop Dose Admin Acetaminophen 650 mg 01/18/20 13:04 01/19/20 09:02 Tylenol - PO 650 mg Q6H PRN Administration PAIN LEVEL 4 - 6 Acetaminophen 650 mg 01/18/20 13:04 Tylenol - PO Q6H PRN FEVER Al Hydroxide/Mg Hydroxide 30 ml 01/18/20 13:04 01/19/20 17:44 Mylanta Oral Suspension - PO 30 ml Q6H PRN Administration DYSPEPSIA Albuterol Sulfate 2 puff 01/19/20 22:49 01/19/20 23:08 Ventolin Hfa Inhaler - IH 2 puff Q4H PRN Administration SHORT OF BREATH/WHEEZING Bismuth Subsalicylate 524 mg 01/18/20 13:04 Pepto-Bismol - PO Q1H PRN DIARRHEA Chlordiazepoxide HCl 25 mg 01/20/20 05:00 01/20/20 06:31 Librium - PO 01/20/20 23:01 25 mg [id number] BETTY Administration Chlordiazepoxide HCl 25 mg 01/18/20 13:04 01/18/20 15:02 Librium - PO 01/20/20 23:59 25 mg Q4H PRN Administration WITHDRAWAL(CONT SUBST) Chlordiazepoxide HCl 10 mg 01/21/20 05:00 Librium - PO 01/21/20 23:01 [id number] BETTY Chlordiazepoxide HCl 10 mg 01/22/20 05:00 Librium - PO 01/22/20 17:01 Q12H BETTY Chlordiazepoxide HCl 10 mg 01/21/20 00:00 Librium - PO 01/22/20 00:00 Q4H PRN WITHDRAWAL(CONT SUBST) Chlordiazepoxide HCl 10 mg 01/23/20 05:00 Librium - PO 01/23/20 05:01 ONCE@0500 ONE Duloxetine HCl 60 mg 01/19/20 10:00 01/19/20 11:08 Cymbalta - PO 60 mg DAILY BETTY Administration Eucalyptus/Menthol/Phenol/Sorbitol 1 each 01/18/20 13:04 Cepastat Lozenge - MM 01/24/20 13:05 Q4H PRN SORE THROAT Gabapentin 600 mg 01/18/20 15:15 01/20/20 06:31 Neurontin - PO 600 mg TID BETTY Administration Hydroxyzine Pamoate 25 mg 01/18/20 14:00 01/20/20 06:31 Vistaril - PO 01/24/20 13:04 25 mg Q4HWA BETTY Administration Ibuprofen 400 mg 01/18/20 13:04 01/20/20 06:30 Motrin - PO 400 mg Q6H PRN Administration PAIN LEVEL 1 - 3 Magnesium Citrate 300 ml 01/18/20 13:04 Citroma - PO Q48H PRN CONSTIPATION Magnesium Hydroxide 30 ml 01/18/20 13:04 Milk Of Magnesia - PO PRN PRN CONSTIPATION Melatonin 5 mg 01/18/20 22:00 01/19/20 22:34 Melatonin PO 5 mg HS BETTY Administration Methocarbamol 500 mg 01/18/20 13:04 01/20/20 09:16 Robaxin - PO 01/24/20 13:05 500 mg Q6H PRN Administration MUSCLE SPASMS Nicotine 14 mg 01/18/20 13:15 01/19/20 11:09 Nicoderm Patch - TD 14 mg DAILY BETTY Administration Nicotine Polacrilex 2 mg 01/18/20 13:04 01/20/20 06:34 Nicorette Gum - BUC 2 mg Q2H PRN Administration NICOTINE REPLACEMENT RX Pantoprazole Sodium 40 mg 01/21/20 06:30 Protonix - PO DAILY@0630 [facility] Multivit/Folic Acid/Iron 1 tab 01/19/20 10:00 01/19/20 11:09 Vitamins (Sjr) - PO 1 tab DAILY BETTY Administration Thiamine HCl 100 mg 01/18/20 22:00 01/19/20 22:34 Vitamin B1 - PO 100 mg HS BETTY Administration Medication(s) Change(s): Medications reviewed. No changes. No scripts issued from [facility]. Spring Setter called pharmacist at [facility] # [id number] ([phone]) : see inf ormation below. Scripts are already available from [facility] provider (awaiting pick- up by patient). Current Side Effect: No Lab tests ordered: No Lab tests reviewed: Yes Provider note:: Chart reviewed. Consult note by historical records administrator Cristina Fernandes (01/18/20) : appreciated. Met with the patient to address his concern about scripts. Spring Setter called [facility] # [id number] at [phone] for information. Spoke to pharmacist : medications are confirmed; refills for gabapentin + cymbalta + prazosin + klonopin + vistaril were picked up on ; campral has not been renewed since October 2019. Mr Judd reports that he has been hospitalized at [facility] from 12/16/19 to 01/04/20; presented to [facility] on 01/18/20 for detoxification. On 01/20/20, he requests discharge for a family emergency. Patient is offered support and condolences for his loss. Mood remains calm and affect appropriate. No evidence of acute signs/symptoms of bereavement. Patient states that he will stay " just for the and return to [facility] to resume outpatient treatment." He denies suicidal or homicidal ideation, intent or plan. No evidence of psychosis or marbin. Baseline behavior. See MSE report for details. Pharmacist indicates that he has already new refills on file for the patient. Mr Judd is in full control of his emotions. Patient is not a danger to self or others. He has full capacity to make decisions pertinent to his personal welfare (medical, psychiatric, social) at time of this examination. Total face to face time:: 60 Mental Status Exam - Mental Status Exam Alert and Oriented to: Time, Place, Person Cognitive Function: Good Patient Appearance: Well Groomed Mood: Hopeful Affect: Appropriate, Normal Range Patient Behavior: Appropriate, Cooperative Speech Pattern: Clear, Appropriate Voice Loudness: Normal Thought Process: Intact, Goal Oriented Thought Disorder: Not Present Hallucinations: Denies Suicidal Ideation: Denies Homicidal Ideation: Denies Insight/Judgement: Fair Sleep: Well Appetite: Good Gait/Station: Normal Psychiatric Treatment Plan - Problem List (1) Alcohol dependence Comment: . (2) MDD (major depressive disorder) Comment: . (3) PTSD (post-traumatic stress disorder) Comment: . (4) Nicotine dependence Qualifiers: Nicotine product type: cigarettes Substance use status: uncomplicated Qualified Code(s): F17.210 - Nicotine dependence, cigarettes, uncomplicated Comment: .
[2020-01-20] MEDS: PRENATAL VITAMINS W/ FOLIC ACID TABLET (FP) PO SCH (11:00)
[2020-01-20] MEDS: NICOTINE 14 MG/24 HOURS TOPICAL PATCH TD SCH (11:00)
[2020-01-20] MEDS: DULoxetine HCL 30 MG CAPSULE.DR PO SCH (11:01)
--- NOTE | 2020-01-20 11:24 | DS ---
[facility] Detox Discharge Summary Admission Date: 01/18/20 Discharge Date: 01/20/20 - History Present History: Alcohol Dependence, Cannabis Dependence Additional Comments: Pt declined to continue with detox despite all encouragement to stay stating he is going to [place] with Family because of in the family last . Pt was admitted on the 01/18/20. Pt was seen by the counselor to arrange for aftercare referral. Pt states he will follow up with aftercare program after return. Pt was followed up by psych today for pt's previous psych consult request to see psychTeresita Davis s/h/i. Pt reports he has a PCP, Dr Salinas @ [address] [place] [address]. . Pt reports he has his Rx medications at [facility] pharmacy and needs to call his insurance to be able to pick them up as he has not been able to do so yet. Pt was encouraged to call his insurance to straighten out any issues preventing him picking them up. Pertinent Past History: Childhood Asthma(no current meds) GERD Hx Cervical spine [place] Mood Disorder PTSD - Physical Exam Results Vital Signs: Vital Signs Temperature 97.7 F 01/20/20 06:01 Pulse Rate 81 01/20/20 06:01 Respiratory Rate 18 01/20/20 06:01 Blood Pressure 108/66 01/20/20 06:01 O2 Sat by Pulse Oximetry (%) 98 01/20/20 06:01 alert o x 3 nad oob ambulating with steady gait Pertinent Admission Physical Exam Findings: Laboratory Tests 01/18/20 01/19/20 01/19/20 17:09 08:15 08:15 WBC RBC Hgb Hct MCV MCH MCHC RDW Plt Count MPV PT with INR INR Sodium Potassium Chloride Carbon Dioxide Anion Gap BUN Creatinine Est GFR (CKD-EPI)AfAm Est GFR (CKD-EPI)NonAf Random Glucose Calcium Total Bilirubin AST ALT Alkaline Phosphatase Total Protein Albumin Urine Color [place] Urine Appearance Turbid Urine pH 6.5 Ur Specific [place] 1.027 Urine Protein 1+ H Urine Glucose (UA) Negative Urine Ketones 1+ H Urine Blood Negative Urine Nitrite Negative Urine Bilirubin Negative Urine Urobilinogen 1.0 Ur Leukocyte Esterase 1+ H Urine WBC (Auto) 28 Urine RBC (Auto) 3 Urine Casts (Auto) 4 U Epithel Cells (Auto) 25 U Sm Round Cell (Auto) None seen Urine Bacteria (Auto) 113 Syphilis Serology Non-reactive HIV Ag/Ab Combo Qual Negative 01/19/20 01/19/20 01/19/20 08:15 08:15 22:46 WBC 4.7 RBC 5.20 Hgb 15.8 Hct 47.8 D MCV 91.9 MCH 30.4 MCHC 33.1 RDW 14.9 D Plt Count 240 MPV 8.0 PT with INR INR Sodium 142 Potassium 3.9 Chloride 106 Carbon Dioxide 28 Anion Gap 8 BUN 9.5 Creatinine 1.1 Est GFR (CKD-EPI)AfAm 103.13 Est GFR (CKD-EPI)NonAf 88.98 Random Glucose 73 L Calcium 9.7 Total Bilirubin 1.2 H AST 39 H ALT 47 Alkaline Phosphatase 130 H Total Protein 8.2 Albumin 4.2 Urine Color [place] Urine Appearance Clear Urine pH 6.0 Ur Specific [place] 1.023 Urine Protein Negative Urine Glucose (UA) Negative Urine Ketones Negative Urine Blood Negative Urine Nitrite Negative Urine Bilirubin Negative Urine Urobilinogen 0.2 Ur Leukocyte Esterase Negative Urine WBC (Auto) Urine RBC (Auto) Urine Casts (Auto) U Epithel Cells (Auto) U Sm Round Cell (Auto) Urine Bacteria (Auto) Syphilis Serology HIV Ag/Ab Combo Qual 01/20/20 01/20/20 07:50 08:00 WBC RBC Hgb Hct MCV MCH MCHC RDW Plt Count MPV PT with INR 11.00 INR 0.93 Sodium 142 Potassium 4.0 Chloride 107 Carbon Dioxide 31 Anion Gap 4 L BUN 10.8 Creatinine 1.0 Est GFR (CKD-EPI)AfAm 115.72 Est GFR (CKD-EPI)NonAf 99.85 Random Glucose 77 Calcium 9.3 Total Bilirubin 0.5 AST 24 ALT 40 Alkaline Phosphatase 118 H Total Protein 6.9 Albumin 3.6 Urine Color Urine Appearance Urine pH Ur Specific [place] Urine Protein Urine Glucose (UA) Urine Ketones Urine Blood Urine Nitrite Urine Bilirubin Urine Urobilinogen Ur Leukocyte Esterase Urine WBC (Auto) Urine RBC (Auto) Urine Casts (Auto) U Epithel Cells (Auto) U Sm Round Cell (Auto) Urine Bacteria (Auto) Syphilis Serology HIV Ag/Ab Combo Qual - Treatment Hospital Course: Discharged Condition Good, Rehab Referral Accepted Patient has Accepted a Rehab Referral to: [place], [place]. - Medication Discharge Medications: Ambulatory Orders Cyclobenzaprine HCl [Flexeril -] 10 mg PO TID 08/28/18 Omeprazole 20 mg PO DAILY 08/28/18 Acamprosate Calcium 666 mg PO TID 05/31/19 Duloxetine HCl 60 mg PO DAILY 05/31/19 Folic Acid - 1 mg PO DAILY 05/31/19 Gabapentin [Neurontin -] 600 mg PO TID 05/31/19 Prazosin HCl [Minipress -] 2 mg PO TID 06/01/19 - Diagnosis (1) Cannabis abuse Current Visit: Yes Status: Acute (2) Alcohol dependence with uncomplicated withdrawal Current Visit: Yes Status: Acute (3) Nicotine dependence Current Visit: Yes Status: Acute Qualifiers: Nicotine product type: cigarettes Substance use status: in withdrawal Qualified Code(s): F17.213 - Nicotine dependence, cigarettes, with withdrawal (4) Chronic back pain Current Visit: Yes Status: Chronic Qualifiers: Back pain location: low back pain Back pain laterality: bilateral Sciatica presence: without sciatica Qualified Code(s): M54.5 - Low back pain; G89.29 - Other chronic pain (5) GERD (gastroesophageal reflux disease) Current Visit: Yes Status: Chronic Qualifiers: Esophagitis presence: esophagitis presence not specified Qualified Code(s): K21.9 - Gastro-esophageal reflux disease without esophagitis (6) History of cervical spine trauma Current Visit: Yes Status: Chronic - AMA Did Patient Leave Against Medical Advice: Yes
[2020-01-21] MEDS ORDERED: chlordiazePOXIDE HCL 10 MG CAPSULE PO PRN
[2020-01-21] MEDS ORDERED: chlordiazePOXIDE HCL 10 MG CAPSULE PO SCH (05:00)
[2020-01-21] MEDS ORDERED: PANTOPRAZOLE 40 MG TABLET PO SCH (06:30)
--- NOTE | 2020-01-21 16:18 | PN ---
[facility] Progress Note Note: Psychiatry Attending's note (follow-up) : Resilient Tile Installer had checked with [facility] # [id number]. At [phone]. For verification of scripts. Mr Judd, as per pharmacist, picked up only cymbalta. Other refills are available. Patient reportedly declined to pick them up.
[2020-01-22] MEDS ORDERED: chlordiazePOXIDE HCL 10 MG CAPSULE PO SCH (05:00)
[2020-01-23] MEDS ORDERED: chlordiazePOXIDE HCL 10 MG CAPSULE PO ONE (05:00)
== END 2020-01-20 11:30 | disposition left against medical advice (07) | DRG 894 ==
LOC: YASAS 10:55 → Y5N DETOX 14:03
PROVIDERS: ADMIT Allergy & Immunology; ATTEND Allergy & Immunology
PROC: HZ2ZZZZ Detoxification Services for Substance Abuse Treatment (ICD-10-PCS; principal; 2020-01-18)
DX: F10.230 Alcohol dependence with withdrawal, uncomplicated (principal); F12.20 Cannabis dependence, uncomplicated; F17.213 Nicotine dependence, cigarettes, with withdrawal; F31.9 Bipolar disorder, unspecified; F41.8 Other specified anxiety disorders; F43.10 Post-traumatic stress disorder, unspecified; F39 Unspecified mood [affective] disorder; F41.0 Panic disorder [episodic paroxysmal anxiety]; J45.909 Unspecified asthma, uncomplicated; K21.9 Gastro-esophageal reflux disease without esophagitis; E73.9 Lactose intolerance, unspecified; M54.5 Low back pain; G89.29 Other chronic pain; Z91.5 Personal history of self-harm; Z91.013 Allergy to seafood; Z91.018 Allergy to other foods; Z56.0 Unemployment, unspecified; Z59.0 Homelessness
CPT/HCPCS: 36415; 80053; 81003; 85027; 85610; 86780; 87389; Q0162; U0003

== ENCOUNTER 2021-05-25 13:49 | Inpatient (IN) | payer OTHER ==
[2021-05-25 15:04] VITALS: BMI 20.2
[2021-05-25] MEDS ORDERED: MAGNESIUM HYDROX 2400MG/30ML ORAL SUSPENSION 30 ML CUP PO PRN (15:17)
[2021-05-25] MEDS ORDERED: MAG HYDROX/AL HYDROX/SIMETH 30 ML UNIT-DOSE CUP PO PRN (15:17)
[2021-05-25] MEDS ORDERED: IBUPROFEN 400 MG TABLET (FP) PO PRN (15:17)
[2021-05-25] MEDS ORDERED: ACETAMINOPHEN 325 MG TABLET (FP) PO PRN (15:17)
[2021-05-25] MEDS ORDERED: BISMUTH SUBSALICYLATE 524 MG/30 ML PO PRN (15:17)
[2021-05-25] MEDS ORDERED: NICOTINE 10 MG CARTRIDGE (INHALER) IH PRN (15:17)
[2021-05-25] MEDS ORDERED: MENTHOL/PHENOL 1 EACH UD MM PRN (15:17)
[2021-05-25] MEDS ORDERED: MAGNESIUM CITRATE 300 ML BOTTLE PO PRN (15:17)
[2021-05-25] MEDS: diazePAM 5 MG TABLET PO SCH ×2 (17:27→22:21)
[2021-05-25] MEDS: hydrOXYzine PAMOATE 25 MG CAPSULE (FP) PO SCH ×2 (17:27→22:21)
[2021-05-25] MEDS ORDERED: MELATONIN 5 MG TABLETS PO SCH (22:00)
[2021-05-25] MEDS: THIAMINE HCL 100 MG TABLET (FP) PO SCH (22:21)
[2021-05-26] MEDS: diazePAM 5 MG TABLET PO SCH ×4 (05:35→22:05)
[2021-05-26] MEDS: hydrOXYzine PAMOATE 25 MG CAPSULE (FP) PO SCH ×2 (05:36→10:13)
[2021-05-26] MEDS: PRENATAL VITAMINS W/ FOLIC ACID TABLET (FP) PO SCH (10:12)
[2021-05-26] MEDS: METHOCARBAMOL 500 MG TABLET PO PRN (10:12)
[2021-05-26] MEDS ORDERED: FAMOTIDINE 20 MG TABLET PO ONE (10:30)
[2021-05-26] MEDS ORDERED: FLU VACC QS2021-22(6MOS UP)/PF 60 MCG/0.5 ML SYRINGE IM ONE (12:00)
[2021-05-26] MEDS: NICOTINE 14 MG/24 HOURS TOPICAL PATCH TD SCH ×2 (14:20→14:34)
[2021-05-26] MEDS: ACETAMINOPHEN 325 MG TABLET (FP) PO PRN (14:34)
[2021-05-26] MEDS: ONDANSETRON *ODT* 4 MG TABLET SL PRN (18:08)
[2021-05-26] MEDS ORDERED: SUVOREXANT 10 MG TABLET PO PRN (22:00)
[2021-05-26] MEDS: FAMOTIDINE 20 MG TABLET PO SCH (22:05)
[2021-05-26] MEDS: THIAMINE HCL 100 MG TABLET (FP) PO SCH (22:05)
[2021-05-26] MEDS: SUVOREXANT 10 MG TABLET PO PRN (22:08)
[2021-05-26] MEDS: hydrOXYzine PAMOATE 50 MG CAPSULE (FP) PO PRN (22:08)
[2021-05-27] MEDS: diazePAM 5 MG TABLET PO SCH ×3 (05:18→22:07)
[2021-05-27] MEDS: METHOCARBAMOL 500 MG TABLET PO PRN ×3 (05:19→22:13)
[2021-05-27] MEDS: NICOTINE POLACRILEX 2 MG GUM BUC PRN ×2 (05:21→11:31)
[2021-05-27] MEDS: FAMOTIDINE 20 MG TABLET PO SCH ×2 (06:47→22:06)
[2021-05-27] MEDS: ONDANSETRON *ODT* 4 MG TABLET SL PRN (08:32)
[2021-05-27] MEDS: NICOTINE 14 MG/24 HOURS TOPICAL PATCH TD SCH (10:19)
[2021-05-27] MEDS: PRENATAL VITAMINS W/ FOLIC ACID TABLET (FP) PO SCH (10:19)
[2021-05-27] MEDS: diazePAM 5 MG TABLET PO PRN (10:19)
[2021-05-27] MEDS: ACETAMINOPHEN 325 MG TABLET (FP) PO PRN ×2 (10:21→22:08)
[2021-05-27 11:06] LABS: HEMATOCRIT 44.7 % (35.4-49); HEMOGLOBIN 15.4 GM/dL (11.7-16.9); MCH 32.3 pg (25.7-33.7); MCHC 34.6 g/dl (32.0-35.9); MEAN CELL VOLUME 93.5 fl (80-96); MEAN PLT VOLUME 8.3 fl (7.5-11.1); PLATELET COUNT 236 10^3/uL (134-434); RBC 4.78 M/mm3 (4.00-5.60); RDW 13.1 % (11.9-15.9); WHITE BLOOD COUNT 5.5 K/mm3 (4.0-10.0)
[2021-05-27 14:00] LABS: ALBUMIN 3.9 g/dl (3.4-5.0); BILIRUBIN,TOTAL 0.9 mg/dL (0.2-1); BLOOD UREA NITROGEN 13.8 mg/dL (7-18); CALCIUM 8.9 mg/dL (8.5-10.1); CREATININE 1.1 mg/dL (0.55-1.3); TOT PROT 6.9 g/dl (6.4-8.2)
[2021-05-27] MEDS: THIAMINE HCL 100 MG TABLET (FP) PO SCH (22:06)
[2021-05-27] MEDS: SUVOREXANT 10 MG TABLET PO PRN (22:13)
[2021-05-28] MEDS: diazePAM 5 MG TABLET PO SCH ×2 (05:45→17:27)
[2021-05-28] MEDS: hydrOXYzine PAMOATE 50 MG CAPSULE (FP) PO PRN ×2 (05:47→15:50)
[2021-05-28] MEDS: FAMOTIDINE 20 MG TABLET PO SCH ×2 (06:57→22:02)
[2021-05-28] MEDS: NICOTINE POLACRILEX 2 MG GUM BUC PRN (08:46)
[2021-05-28] MEDS: diazePAM 5 MG TABLET PO PRN (10:17)
[2021-05-28] MEDS: PRENATAL VITAMINS W/ FOLIC ACID TABLET (FP) PO SCH (10:17)
[2021-05-28] MEDS: NICOTINE 14 MG/24 HOURS TOPICAL PATCH TD SCH (10:19)
[2021-05-28] MEDS ORDERED: LOPERAMIDE HCL 2 MG CAPSULE PO PRN (13:09)
[2021-05-28] MEDS: METHOCARBAMOL 500 MG TABLET PO PRN (15:50)
[2021-05-28] MEDS: THIAMINE HCL 100 MG TABLET (FP) PO SCH (22:02)
[2021-05-28] MEDS: SUVOREXANT 10 MG TABLET PO PRN (22:02)
[2021-05-28 23:22] VITALS: TEMP 97.5
[2021-05-29] MEDS: hydrOXYzine PAMOATE 50 MG CAPSULE (FP) PO PRN (01:20)
[2021-05-29] MEDS ORDERED: diazePAM 5 MG TABLET PO ONE (06:00)
[2021-05-29] MEDS: FAMOTIDINE 20 MG TABLET PO SCH (06:21)
[2021-05-29] MEDS: ONDANSETRON *ODT* 4 MG TABLET SL PRN (06:41)
[2021-05-29 06:51] VITALS: BP 114/55; PULSE 74
[2021-05-29] MEDS: PRENATAL VITAMINS W/ FOLIC ACID TABLET (FP) PO SCH (11:21)
[2021-05-29] MEDS: NICOTINE 14 MG/24 HOURS TOPICAL PATCH TD SCH (11:21)
== END 2021-05-29 10:57 | disposition home or self-care (01) | DRG 897 ==
LOC: YASAS 13:49 → Y6N 16:26
PROVIDERS: ADMIT Allergy & Immunology; ATTEND Allergy & Immunology
PROC: HZ2ZZZZ Detoxification Services for Substance Abuse Treatment (ICD-10-PCS; principal; 2021-05-25)
DX: F10.230 Alcohol dependence with withdrawal, uncomplicated (principal); F19.282 Other psychoactive substance dependence with psychoactive substance-induced sleep disorder; F19.280 Other psychoactive substance dependence with psychoactive substance-induced anxiety disorder; E72.9 Disorder of amino-acid metabolism, unspecified; F12.20 Cannabis dependence, uncomplicated; F17.213 Nicotine dependence, cigarettes, with withdrawal; F43.10 Post-traumatic stress disorder, unspecified; I10 Essential (primary) hypertension; J45.20 Mild intermittent asthma, uncomplicated; R63.4 Abnormal weight loss; K21.9 Gastro-esophageal reflux disease without esophagitis; M54.50 Low back pain, unspecified; G89.29 Other chronic pain; Z91.013 Allergy to seafood; Z56.0 Unemployment, unspecified; Z68.20 Body mass index [BMI] 20.0-20.9, adult
CPT/HCPCS: 36415; 80053; 85027; 86780; 90686; C9803; G0008; Q0162; U0003; U0005